=== PATIENT | male | born 1940 | race Caucasian/White ===

== ENCOUNTER 2016-03-03 14:55 | Day surgery (SDC) | payer MEDICARE, MEDICAID ==
[2016-03-03] MEDS ORDERED: NALOXONE HCL INJ/PF 0.4 MG/1 ML SDV ONE (15:43)
[2016-03-03] MEDS ORDERED: PROMETHAZINE HCL INJ 25 MG/1 ML VIAL ONE (15:43)
[2016-03-03] MEDS ORDERED: FLUMAZENIL INJ 0.5 MG/5 ML VIAL IV ONE (15:44)
[2016-03-03] MEDS ORDERED: MIDAZOLAM 2 MG/2 ML INJ ONE (15:44)
[2016-03-03] MEDS ORDERED: EPINEPHRINE INJ 1 MG/10 ML DISP.SYRIN ONE (15:44)
[2016-03-03] MEDS ORDERED: FENTANYL CITRATE INJ/PF 100 MCG/2 ML AMPUL ONE (15:44)
[2016-03-03] MEDS ORDERED: GLUCAGON,HUMAN RECOMB 1 MG INJ ONE (15:44)
--- NOTE | 2016-03-03 16:29 | Operative Report ---
Operative Report DATE OF SURGERY: 03/03/16 Operative Report: Pre-op diagnosis: History of large gastric ulcer with bleeding Post-op diagnosis: Antral and gastric body gastritis Surgery: Esophagogastroduodenoscopy with biopsy Medications: Versed 2 mg Fentanyl 50 mcg IV push Tissue removed: Antral biopsy for pathology Procedure: After informed consent obtained from patient, the throat was sprayed with Hurricane and conscious sedation was achieved. The upper endoscope was inserted into the esophagus under direct vision and advanced into the stomach. The duodenum was entered and examined to the second part. Endoscope was then slowly pulled out of the patient as the mucosa was examined into details. Patient tolerated procedure well. Findings Esophagus: Normal Z-line at: Antrum: Mild erythema with areas of atrophy Body: Mild erythema with areas of atrophy Fundus: Normal Duodenum first part: Normal Duodenum second part: Normal Plan: Await pathology. Continue omeprazole OPERATION: .
--- NOTE | 2016-03-03 17:03 | PDOC DISCHARGE SUMMARY ---
Discharge Summary (SDC) - Discharge Final Diagnosis: Gastritis Date of Surgery: 03/03/16 Condition: Stable Forms: Sedation D/C Instructions, Discharge POC-Surgical Service Treatment or Instructions: Continue omeprazole Referrals: MERRILL BASS MD [ACTIVE STAFF] - Discharge Diet: As Tolerated Discharge Activity: Activity As Tolerated, Balance Activity w/Rest, No Driving Home Care Assistance: None Needed Report the Following to Your Physician Immediately: Shortness of Breath, Increase in Pain, Fever over 101 Degrees, Unusual Bleeding
[2016-03-03 17:16] VITALS: BP 142/79
== END 2016-03-03 17:22 | disposition home or self-care (01) ==
LOC: END 14:55
PROVIDERS: ATTEND Internal Medicine Gastroenterology
PROC: 0DB68ZX Excision of Stomach, Via Natural or Artificial Opening Endoscopic, Diagnostic (ICD-10-PCS; principal; 2016-03-03 15:30)
DX: K29.70 Gastritis, unspecified, without bleeding (principal); D63.8 Anemia in other chronic diseases classified elsewhere; M06.9 Rheumatoid arthritis, unspecified; J44.9 Chronic obstructive pulmonary disease, unspecified; Z88.2 Allergy status to sulfonamides; Z87.11 Personal history of peptic ulcer disease
CPT/HCPCS: 43239; 82962; 88305 ×2; J2250; J3010; J0171; J1610; J2310; J2550; J3490

== ENCOUNTER 2018-03-22 19:55 | Emergency (ER) | payer MEDICARE, MEDICAID ==
--- NOTE | 2018-03-22 21:08 | ER Document Report ---
ED General - General Chief Complaint: Knee Pain Stated Complaint: KNEE PAIN Time Seen by Provider: 03/22/18 20:45 Primary Care Provider: YULIYA VASQUEZ MD [ACTIVE STAFF] - Follow up as needed Notes: Patient is a 77-year-old male that comes to the emergency part for chief complaint of having a place to go. He states he was at [facility] in rehab after he had had a intracranial hemorrhage that he was hospitalized at [facility] and discharged to the rehab center, he states he just started using a walker again, he had been in a wheelchair up until that point. Patient has been in a long- term care facility before because of very bad arthritis of his hands he has limited use of them, before the intracranial hemorrhage she was living with a friend in a house where he was dropped off today, however nobody showed up to the house and patient remained on the porch until the police were called. He reports to me a past medical history of insulin-dependent diabetes, arthritis, and intracranial hemorrhage, denies medical history otherwise. He states he is worried about going back to that house because he heard someone else lives there now, he is not sure that he has a place there, he is looking for a place to go. He denies SI or HI. He denies any current complaints except feeling hungry. TRAVEL OUTSIDE OF THE [place] IN LAST 30 DAYS: No - Related Data Allergies/Adverse Reactions: Sulfa (Sulfonamide Antibiotics) Allergy (Verified 01/21/15 19:24) Past Medical History - General Information source: Patient - Social History Smoking Status: Former Smoker Frequency of alcohol use: None Drug Abuse: None Lives with: Friend Family History: Reviewed & Not Pertinent - Past Medical History Cardiac Medical History: Denies: Hx Coronary Artery Disease, Hx Heart Attack, Hx Hypertension Pulmonary Medical History: Reports: Hx Bronchitis, Hx COPD, Hx Pneumonia Denies: Hx Asthma, Hx Tuberculosis Neurological Medical History: Denies: Hx Cerebrovascular Accident, Hx Seizures Endocrine Medical History: Reports: Hx Diabetes Mellitus Type 2 Musculoskeletal Medical History: Reports Hx Arthritis - rheumatoid, Reports Hx Musculoskeletal Deformity, Reports Hx Musculoskeletal Trauma Psychiatric Medical History: Reports: Hx Attention Deficit Hyperactivity Disorder, Hx Depression Past Surgical History: Reports: Hx Nose Surgery, Hx Orthopedic Surgery - left hip - Immunizations Immunizations up to date: Yes Hx Diphtheria, Pertussis, Tetanus Vaccination: Yes - unknown Hx Pneumococcal Vaccination: 02/22/07 Review of Systems - Review of Systems Constitutional: No symptoms reported EENT: No symptoms reported Cardiovascular: No symptoms reported Respiratory: No symptoms reported Gastrointestinal: No symptoms reported Genitourinary: No symptoms reported Male Genitourinary: No symptoms reported Musculoskeletal: See HPI Skin: No symptoms reported Hematologic/Lymphatic: No symptoms reported Neurological/Psychological: No symptoms reported Physical Exam - Vital signs Vitals: Temp Pulse Resp BP Pulse Ox 98.8 F 106 H 16 100/64 99 03/22/18 20:13 03/22/18 20:13 03/22/18 20:13 03/22/18 20:13 03/22/18 20:13 - Notes Notes: GENERAL: Small and frail. Alert and interactive. Talkative and laughing. HEAD: Normocephalic, atraumatic. EYES: Pupils equal, round, and reactive to light. Extraocular movements intact. ENT: Oral mucosa dry, tongue midline. Oropharynx unremarkable. Airway patent. Nares patent, no nasal septal hematoma, TM's intact. NECK: Full range of motion. Supple. Trachea midline. LUNGS: Clear to auscultation bilaterally, although mildly depressed throughout, no wheezes, rales, or rhonchi. No respiratory distress. HEART: Regular rate and rhythm. No murmur ABDOMEN: Soft, non-tender. Non-distended. Bowel sounds present in all 4 quadrants. 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 Pain with range of motion of the knees, worse on the right, but this is intact. Lower extremity exam is unremarkable otherwise. BACK: no cervical, thoracic, lumbar midline tenderness. No saddle anesthesia, normal distal neurovascular exam. NEUROLOGICAL: Alert and oriented x3. Normal speech. [cranial nerves II through XII grossly intact]. PSYCH: Normal affect, normal mood. SKIN: Warm, dry, normal turgor. No rashes or lesions noted. Course - Re-evaluation Re-evalutation: Patient is conversational, alert, he has very dry mucous membranes but otherwise he is well-appearing. He is completely oriented and able to provide full det ails. Patient appears to be completely out of resources, because of his age, past medical history, and difficult day he will be medically cleared first, pillowcase sewer consult will be placed, patient will be a social hold once he is medically cleared. Review of previous records shows this patient has a history of rheumatoid arthritis, type 2 diabetes, CVA, prosthetic left hip, and tobacco abuse. EKG shows sinus rate at a rate of 82, no T wave inversions or ST segment changes negative leads, left axis deviation. No significant change from prior. He was borderline tachycardic on arrival but not on my evaluation. 03/23/18 00:01 General workup including CBC, chemistry, urinalysis, EKG, drug screen, alcohol is unremarkable. Vital signs unremarkable. Patient sleeping on reevaluation. We have already discussed different options, patient is medically cleared, he is a social hold at this time, when we find a location for him he can be discharged. - Vital Signs Vital signs: Temp Pulse Resp BP Pulse Ox 98 F 80 20 145/78 H 96 03/22/18 22:22 03/22/18 22:22 03/22/18 22:22 03/22/18 22:22 03/22/18 22:22 - Laboratory Result Diagrams: 03/22/18 21:18 03/22/18 21:18 Laboratory results interpreted by me: 03/22/18 03/22/18 21:18 21:18 RBC 4.17 L RDW 16.5 H Plt Count 143 L Seg Neutrophils % 81.9 H Lymphocytes % 10.0 L BUN 32 H Est GFR (Non-Af Amer) 57 L Glucose 113 H Salicylates < 1.0 L Acetaminophen < 10 L Discharge - Discharge Clinical Impression: Homelessness, Chronic joint pain Condition: Stable Disposition: OTHER Referrals: YULIYA VASQUEZ MD [ACTIVE STAFF] - Follow up as needed
[2018-03-22 21:30] LABS: ABSOLUTE EOSINOPHILS # (AUTO) 0.1 10^3/uL (0.0-0.6); ABSOLUTE LYMPHOCYTES (AUTO) 0.8 10^3/uL (0.5-4.7); ABSOLUTE MONOCYTES (AUTO) 0.6 10^3/uL (0.1-1.4); ABSOLUTE NEUT (AUTO) 6.4 10^3/uL (1.7-8.2); BASOPHILS % (AUTO) 0.2 % (0-2); EOSINOPHILS % (AUTO) 0.7 % (0-6); HEMATOCRIT 39.9 % (37.9-51.0); HEMOGLOBIN 13.5 g/dL (13.5-17.0); MEAN CORPUSCULAR HEMOGLOBIN 32.5 pg (27.0-33.4); MEAN CORPUSCULAR VOLUME 96 fl (80-97); MONOCYTES % (AUTO) 7.2 % (3-13); PLATELET COUNT 143 10^3/uL (150-450); RED BLOOD COUNT 4.17 10^6/uL (4.35-5.55); RED CELL DISTRIBUTION WIDTH 16.5 % (11.5-14.0); SEGMENTED NEUTROPHILS % (AUTO) 81.9 % (42-78); TOTAL CELLS COUNTED % (AUTO) 100 %; WHITE BLOOD COUNT 7.8 10^3/uL (4.0-10.5)
[2018-03-22 21:50] LABS: ALANINE AMINOTRANSFERASE 31 U/L (21-72); ALBUMIN 4.4 g/dL (3.5-5.0); ALKALINE PHOSPHATASE 71 U/L (38-126); ANION GAP 11 (5-19); ASPARTATE AMINO TRANSFERASE 20 U/L (17-59); BILIRUBIN,DIRECT 0.2 mg/dL (0.0-0.4); BILIRUBIN,TOTAL 0.3 mg/dL (0.2-1.3); BLOOD UREA NITROGEN 32 mg/dL (7-20); CALCIUM 9.4 mg/dL (8.4-10.2); CARBON DIOXIDE 22 mmol/L (22-30); CHLORIDE 106 mmol/L (98-107); GLUCOSE 113 mg/dL (75-110); POTASSIUM 4.9 mmol/L (3.6-5.0); TOTAL PROTEIN 7.2 g/dL (6.3-8.2)
[2018-03-22 21:58] LABS: ACETAMINOPHEN < 10 ug/mL (10-30); ALCOHOL < 10 mg/dL (NONE DETECTED); SALICYLATE < 1.0 mg/dL (2.0-20.0)
[2018-03-22 23:10] LABS: APPEARANCE,URINE CLEAR; BILIRUBIN,URINE NEGATIVE (NEGATIVE); COLOR,URINE STRAW; GLUCOSE, URINE NEGATIVE (NEGATIVE); KETONES,URINE NEGATIVE (NEGATIVE); LEUKOCYTE ESTERASE,URINE NEGATIVE (NEGATIVE); NITRITE,URINE NEGATIVE (NEGATIVE); PROTEIN,URINE NEGATIVE (NEGATIVE); UROBILINOGEN,URINE NEGATIVE mg/dL (<2.0)
[2018-03-22 23:23] LABS: URINE AMPHETAMINES SCREEN NEGATIVE; URINE BARBITURATES SCREEN NEGATIVE; URINE BENZODIAZEPINES SCREEN NEGATIVE; URINE COCAINE SCREEN NEGATIVE; URINE MARIJUANA (THC) SCREEN NEGATIVE; URINE METHADONE SCREEN NEGATIVE; URINE PHENCYCLIDINE SCREEN NEGATIVE
--- NOTE | 2018-03-23 08:04 | EKG REPORT ---
SEVERITY:- OTHERWISE NORMAL ECG - SINUS RHYTHM LEFT AXIS DEVIATION : Confirmed by: Bob Lee MD 23-Mar-2018 08:03:52
--- NOTE | 2018-03-23 09:56 | ER Document Report ---
Doctor's Note Notes: 03/23/18 09:55 Patient resting comfortably, no complaints at present time, assisted him with eating breakfast, unsure what the discharge plan is at this point, as patient has nowhere to live, states he plans on getting an apartment on his own, however given his current medical condition and disability I am unsure whether this is a safe plan at this time without appropriate resources in place, will discuss with social work for more insight on discharge planning, otherwise patient is medically cleared to be discharged from the emergency department once a safe and appropriate plan is made
[2018-03-23] MEDS ORDERED: INSULIN GLARGINE,HUM.REC.ANLOG 1,000 UNIT/10 ML UNIT SUBCUT SCH (11:30)
[2018-03-23] MEDS ORDERED: TUBERCULIN,PURIF.PROT.DERIV. 5 TU/0.1 ML TEST 1 ML VIAL ID ONE (11:41)
[2018-03-23] MEDS: METFORMIN HCL 500 MG TABLET PO SCH ×2 (12:41→18:59)
[2018-03-23] MEDS: FAMOTIDINE 20 MG TABLET PO SCH (12:41)
[2018-03-23] MEDS: FOLIC ACID 1 MG TABLET PO SCH (12:41)
[2018-03-24] MEDS: INSULIN GLARGINE,HUM.REC.ANLOG 1,000 UNIT/10 ML UNIT SUBCUT SCH (11:22)
[2018-03-24] MEDS: FAMOTIDINE 20 MG TABLET PO SCH (11:22)
[2018-03-24] MEDS: FOLIC ACID 1 MG TABLET PO SCH (11:22)
[2018-03-24] MEDS: METFORMIN HCL 500 MG TABLET PO SCH ×2 (11:22→20:09)
--- NOTE | 2018-03-24 14:52 | ER Document Report ---
Doctor's Note Notes: 03/24/18 14:51 Patient's vital signs have been stable. I reviewed the chart. This is a 77-year-old gentleman with a history of chronic pain and diabetes who previously left [facility] protheses he did not like it) and is now homeless. He is followed by social work and the plan is for probable placement tomorrow. We are waiting for results of his PPD test which was applied yesterday. Applications for new [facility] have been created and submitted.
[2018-03-25] MEDS: METFORMIN HCL 500 MG TABLET PO SCH (10:24)
[2018-03-25] MEDS: FAMOTIDINE 20 MG TABLET PO SCH (10:24)
[2018-03-25] MEDS: FOLIC ACID 1 MG TABLET PO SCH (10:25)
[2018-03-25] MEDS: INSULIN GLARGINE,HUM.REC.ANLOG 1,000 UNIT/10 ML UNIT SUBCUT SCH (10:26)
--- NOTE | 2018-03-25 12:08 | ER Document Report ---
Doctor's Note Notes: 03/25/18 12:08 Patient has been accepted back to the care facility. Vital signs are stable. Pain. Patient will be transferred to the nursing care facility which he has been accepted and is in agreement to go.
[2018-03-25 13:56] VITALS: BP 131/65
== END 2018-03-25 16:32 | disposition other institution (70) ==
LOC: ER 19:55
DX: Z59.0 Homelessness (principal); M25.50 Pain in unspecified joint; G89.29 Other chronic pain; E11.9 Type 2 diabetes mellitus without complications
CPT/HCPCS: 93005; 36415; 82962; 80307 ×4; 85025; 80053; 81001; 93010; 97116; A9270 ×8; J3490; 99284; J1815

== ENCOUNTER → 2018-06-03 | Outpatient (CLI) | payer MEDICARE, MEDICAID ==
[2018-06-03 10:11] LABS: HEMATOCRIT 34.8 % (37.9-51.0); HEMOGLOBIN 11.9 g/dL (13.5-17.0); MEAN CORPUSCULAR HGB CONC 34.2 g/dL (32.0-36.0); MEAN CORPUSCULAR VOLUME 94 fl (80-97); PLATELET COUNT 249 10^3/uL (150-450); RED BLOOD COUNT 3.72 10^6/uL (4.35-5.55); WHITE BLOOD COUNT 6.3 10^3/uL (4.0-10.5)
[2018-06-03 10:32] LABS: ANION GAP 14 (5-19); BLOOD UREA NITROGEN 20 mg/dL (7-20); CALCIUM 10.1 mg/dL (8.4-10.2); CARBON DIOXIDE 19 mmol/L (22-30); CHLORIDE 105 mmol/L (98-107); GLUCOSE 100 mg/dL (75-110); POTASSIUM 4.5 mmol/L (3.6-5.0); SODIUM 138.3 mmol/L (137-145)
[2018-06-03 11:36] LABS: FOLATE > 20.00 ng/mL (>2.76)
== END ==
LOC: OD 09:01
PROVIDERS: ATTEND Family Medicine
DX: R54 Age-related physical debility (principal); E11.9 Type 2 diabetes mellitus without complications
CPT/HCPCS: 36415; 80048; 82607; 82746; 84443; 85027; 86592

== ENCOUNTER 2018-06-11 09:58 | Emergency (ER) | payer MEDICARE, MEDICAID ==
--- NOTE | 2018-06-11 10:20 | ER Document Report ---
ED General - General Chief Complaint: Hip Injury Stated Complaint: FALL/HIP PAIN Time Seen by Provider: 06/11/18 10:14 Primary Care Provider: MARYLIN CALDERA MD [Primary Care Provider] - Follow up as needed TRAVEL OUTSIDE OF THE [place] IN LAST 30 DAYS: No - HPI Notes: Patient is a 77-year-old male with a history of insulin-dependent diabetes, arthritis, ambulatory dysfunction, and intracranial hemorrhage who presents the emergency department complaining of left hip pain and left hand pain after falling out of his wheelchair prior to arrival. Patient states that he was out side smoking in his wheelchair when he was shifting around to go back inside and lost his balance and fell forward. Patient states that he stopped his fall with his left hand and his left hip. He did not hit his head or lose conscience. Patient states that he otherwise feels well and has no other aches or pains. He takes aspirin daily, but no other blood thinner. Denies any headache, fever, h ead injury, neck pain, changes in vision/speech/mentation/hearing, URI, sore throat, chest pain, palpitations, syncope, cough, shortness of breath, wheeze, dyspnea, abdominal pain, nausea/vomiting/diarrhea, urinary retention, dysuria, hematuria, loss of control of bowel or bladder, numbness/tingling, saddle anesthesia, muscle paralysis, or rash. - Related Data Allergies/Adverse Reactions: Sulfa (Sulfonamide Antibiotics) Allergy (Verified 01/21/15 19:24) Past Medical History - Social History Smoking Status: Current Every Day Smoker Family History: Reviewed & Not Pertinent Patient has suicidal ideation: No Patient has homicidal ideation: No - Past Medical History Cardiac Medical History: Denies: Hx Coronary Artery Disease, Hx Heart Attack, Hx Hypertension Pulmonary Medical History: Reports: Hx Bronchitis, Hx COPD, Hx Pneumonia Denies: Hx Asthma, Hx Tuberculosis Neurological Medical History: Denies: Hx Cerebrovascular Accident, Hx Seizures Endocrine Medical History: Reports: Hx Diabetes Mellitus Type 2 Renal/ Medical History: Denies: Hx Peritoneal Dialysis Musculoskeletal Medical History: Reports Hx Arthritis - rheumatoid, Reports Hx Musculoskeletal Deformity, Reports Hx Musculoskeletal Trauma Psychiatric Medical History: Reports: Hx Attention Deficit Hyperactivity Disorder, Hx Depression Past Surgical History: Reports: Hx Nose Surgery, Hx Orthopedic Surgery - left hip - Immunizations Immunizations up to date: Yes Hx Diphtheria, Pertussis, Tetanus Vaccination: Yes - unknown Hx Pneumococcal Vaccination: 02/22/07 Review of Systems - Review of Systems -: Yes All other systems reviewed and negative Physical Exam - Vital signs Vitals: Temp Pulse Resp BP 97.7 F 74 20 144/75 H 06/11/18 10:06 06/11/18 10:06 06/11/18 10:06 06/11/18 10:06 - Notes Notes: PHYSICAL EXAMINATION: GENERAL: Appears frail and in no acute distress. A&Ox4. Answers questions appropriately. HEAD: Atraumatic, normocephalic. Non-tender. No may sign. No hematoma. EYES: Pupils equal round and reactive to light, extraocular movements intact, sclera anicteric, conjunctiva are normal. No raccoon eyes/entrapment ENT: EAC clear b/l. TM's intact b/l without erythema, fluid, or perforation. Nares patent and without discharge. oropharynx clear without exudates. No tonsilar hypertrophy or erythema. Moist mucous membranes. No sinus tenderness. No hemotympanum/CSF discharge. NECK: Normal range of motion, supple without lymphadenopathy. No rigidity. No midline tenderness. Chest: No ecchymosis. No flail chest. equal rise/fall. Non-tender LUNGS: Breath sounds clear to auscultation bilaterally and equal. No wheezes rales or rhonchi. HEART: Regular rate and rhythm without murmurs, rubs, gallops. ABDOMEN: Soft, nontender, nondistended abdomen. No guarding, no rebound. Normal bowel sounds present. No CVA tenderness bilaterally. No ecchymosis Musculoskeletal: Ext's b/l: FROM to passive/active. Strength 5+/5. No deficits noted. + mild tenderness left lateral hip. + mild tenderness left dorsal hand. No other bony tenderness of extremities. He does appear to an arthritis that resembles RA, primarily noted with his hands/fingers. Back: FROM to passive/active. Strength 5+/5. No vertebral point tenderness, stepoffs, or deformities. No other bony tenderness or ecchymosis. Extremities: No cyanosis, clubbing, or edema b/l. Peripheral pulses 2+. Capillary refill less than 2 seconds. NEUROLOGICAL: NIH 0. GCS 15. Cranial nerves grossly intact. Normal speech. Normal sensory, motor exams. Reflexes 2+ b/l. MEAGAN's negative. Pronator drift negative. Heel/monahan, finger/nose wnl. PSYCH: Normal mood, normal affect. SKIN: Warm, Dry, normal turgor, no rashes or lesions noted. Course - Re-evaluation Re-evalutation: 06/11/18 12:16 Patient is an afebrile, well-hydrated, 77-year-old male who presents to the ED with left ankle pain and left hip pain most likely contusion. Vitals are acceptable without any significant tachycardia, tachypnea, or hypoxia. PE is otherwise unremarkable for any neurovascular compromise, obvious tendon/ligament rupture, obvious fracture/dislocation, septic joint. X-rays unremarkable for any acute pathology. Patient is nontoxic-appearing. Patient is able to ambul ate and weight-bear, but does not ambulate far which is normal for him. No other labs or imaging warranted at this time based on H&P. Conservative measures otherwise for symptoms. Recheck with your PCM in 3-5 days. Consider consult orthopedics. Return to the ED with any worsening/concerning symptoms otherwise as reviewed in discharge. Patient is in agreement. - Vital Signs Vital signs: Temp Pulse Resp BP Pulse Ox 97.7 F 74 20 144/75 H 06/11/18 10:06 06/11/18 10:06 06/11/18 10:06 06/11/18 10:06 Discharge - Discharge Clinical Impression: Left hip pain Left ankle pain Qualifiers: Chronicity: acute Qualified Code(s): M25.572 - Pain in left ankle and joints of left foot Condition: Stable Disposition: HOME, SELF-CARE Additional Instructions: Rest, Ice, Compression, Elevation Tylenol/ibuprofen as needed Light stretches daily Strength exercises as able Moist heat and massage may help F/u with your PCP in 3-5 days for a recheck Consider consult(s) with Orthopedics/physical therapy for ongoing/worsening symptoms Return to the ED with any worsening symptoms and/or development of fever, headache, chest pain, palpitations, syncope, shortness of breath, trouble breathing, abdominal pain, n/v/d, muscle weakness/paralysis, numbness/tingling, swelling, redness, or other worsening symptoms that are concerning to you. Forms: Elevated Blood Pressure Referrals: MARYLIN CALDERA MD [Primary Care Provider] - Follow up as needed [facility] [Provider Group] - Follow up as needed
--- NOTE | 2018-06-11 11:39 | RADIOLOGY REPORT (SQ) ---
EXAM DESCRIPTION: HIP LEFT AP/LATERAL COMPLETED DATE/TIME: 06/11/2018 10:49 am REASON FOR STUDY: pain s/p fall COMPARISON: 12/14/2012, 01/18/2012 NUMBER OF VIEWS: Two views. TECHNIQUE: AP pelvis and additional frog-leg view of the left hip. LIMITATIONS: None. FINDINGS: MINERALIZATION: Osteopenic LEFT HIP: Old left hip replacement with acetabular component anchored with a screw. No lucency aroun d the hardware worrisome for loosening. 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 No acute fracture or malalignment. No significant right hip joint space narrowing PUBIS AND ISCHIUM: No fracture. PELVIS: No fracture. SACRUM: No fracture or dislocation. No worrisome bone lesions. LOWER LUMBAR SPINE: Advanced degenerative disc loss of height at L3-4 SOFT TISSUES: No findings. OTHER: No other significant finding. IMPRESSION: NEGATIVE STUDY OF THE LEFT HIP AND PELVIS. NO RADIOGRAPHIC EVIDENCE OF ACUTE INJURY. COMMENT: Bones are osteopenic. If patient is unable weight bear consider follow-up CT TECHNICAL DOCUMENTATION: JOB ID: [id number] [employer]- All Rights Reserved Reading location - IP/workstation name: [email or web address]
--- NOTE | 2018-06-11 11:44 | RADIOLOGY REPORT (SQ) ---
EXAM DESCRIPTION: HAND LEFT 3 VIEWS COMPLETED DATE/TIME: 06/11/2018 10:56 am REASON FOR STUDY: pain s/p fall COMPARISON: None. EXAM PARAMETERS: NUMBER OF VIEWS: Three views. TECHNIQUE: AP, lateral and oblique radiographic images acquired of the left hand. LIMITATIONS: None. FINDINGS: Bones are osteoporotic. There are classic changes of the hand rheumatoid arthritis with joint narrowing and erosions along th e radiocarpal joint and ulnar subluxation of the phalanges at the MCP joints. No acute fracture. No radiopaque foreign body in the soft tissues. IMPRESSION: No acute fracture. No radiopaque foreign body. Chronic changes of rheumatoid arthritis TECHNICAL DOCUMENTATION: JOB ID: [id number] [employer]- All Rights Reserved Reading location - IP/workstation name: [email or web address]
[2018-06-11 13:08] VITALS: BP 129/83
== END 2018-06-11 13:10 | disposition home or self-care (01) ==
LOC: ER 09:58
DX: M25.552 Pain in left hip (principal); M25.572 Pain in left ankle and joints of left foot; M79.642 Pain in left hand; V00.811A Fall from moving wheelchair (powered), initial encounter; Y93.89 Activity, other specified; F17.200 Nicotine dependence, unspecified, uncomplicated; E11.9 Type 2 diabetes mellitus without complications; J44.9 Chronic obstructive pulmonary disease, unspecified; Z79.82 Long term (current) use of aspirin; Z88.2 Allergy status to sulfonamides
CPT/HCPCS: 82962; 99284

== ENCOUNTER 2018-06-22 15:13 | Emergency (ER) | payer MEDICARE, MEDICAID ==
--- NOTE | 2018-06-22 17:02 | ER Document Report ---
ED Medical Screen (RME) - General Chief Complaint: Abdominal Pain Stated Complaint: ABDOMINAL PAIN Time Seen by Provider: 06/22/18 16:55 Primary Care Provider: MARYLIN CALDERA MD [Primary Care Provider] - Follow up as needed Mode of Arrival: Ambulatory Information source: Patient TRAVEL OUTSIDE OF THE [place] IN LAST 30 DAYS: No - HPI Patient complains to provider of: RIGHT GROIN PAIN Notes: 06/22/18 17:01 Patient here with complaints of right groin pain. Pain started this morning. No fever. No nausea, vomiting, diarrhea. Has had prior inguinal hernia repair approximately 3 years ago. No dysuria. Chest pain or shortness of breath. Exam Nontoxic, no distress. Lungs clear and equal throughout. Heart sounds normal. Tenderness to palpation in the right groin with no obvious mass. No rebound tenderness or guarding. Plan CBC, CMP, urine, lipase, CT abdomen pelvis with IV contrast. An initial examination was made on the patient as part of the triage process, and it was determined a more comprehensive evaluation was necessary. Initial labs were ordered and patient was transferred to another provider in the ED who assumed care and finished evaluation and plan. - Related Data Allergies/Adverse Reactions: Sulfa (Sulfonamide Antibiotics) Allergy (Verified 01/21/15 19:24) Past Medical History - Social History Frequency of alcohol use: None Drug Abuse: None - Past Medical History Cardiac Medical History: Denies: Hx Coronary Artery Disease, Hx Heart Attack, Hx Hypertension Pulmonary Medical History: Reports: Hx Bronchitis, Hx COPD, Hx Pneumonia Denies: Hx Asthma, Hx Tuberculosis Neurological Medical History: Denies: Hx Cerebrovascular Accident, Hx Seizures Endocrine Medical History: Reports: Hx Diabetes Mellitus Type 2 Renal/ Medical History: Denies: Hx Peritoneal Dialysis Musculoskeltal Medical History: Reports Hx Arthritis - rheumatoid, Reports Hx Musculoskeletal Deformity, Reports Hx Musculoskeletal Trauma Psychiatric Medical History: Reports: Hx Attention Deficit Hyperactivity Disorder, Hx Depression Past Surgical History: Reports: Hx Nose Surgery, Hx Orthopedic Surgery - left hip - Immunizations Immunizations up to date: Yes Hx Diphtheria, Pertussis, Tetanus Vaccination: Yes - unknown Physical Exam - Vital signs Vitals: Temp Pulse Resp BP Pulse Ox 98.3 F 76 20 130/63 H 96 06/22/18 15:41 06/22/18 15:41 06/22/18 15:41 06/22/18 15:41 06/22/18 15:41 Course - Vital Signs Vital signs: Temp Pulse Resp BP Pulse Ox 98.3 F 76 20 130/63 H 96 06/22/18 15:41 06/22/18 15:41 06/22/18 15:41 06/22/18 15:41 06/22/18 15:41 Doctor's Discharge - Discharge Referrals: MARYLIN CALDERA MD [Primary Care Provider] - Follow up as needed
[2018-06-22 19:25] LABS: ABSOLUTE MONOCYTES (AUTO) 0.5 10^3/uL (0.1-1.4); ABSOLUTE NEUT (AUTO) 8.1 10^3/uL (1.7-8.2); BASOPHILS % (AUTO) 0.4 % (0-2); EOSINOPHILS % (AUTO) 0.2 % (0-6); HEMATOCRIT 38.9 % (37.9-51.0); LYMPHOCYTES % (AUTO) 10.5 % (13-45); MEAN CORPUSCULAR HGB CONC 33.4 g/dL (32.0-36.0); MEAN CORPUSCULAR VOLUME 96 fl (80-97); PLATELET COUNT 177 10^3/uL (150-450); RED BLOOD COUNT 4.06 10^6/uL (4.35-5.55); RED CELL DISTRIBUTION WIDTH 17.6 % (11.5-14.0); SEGMENTED NEUTROPHILS % (AUTO) 83.9 % (42-78); TOTAL CELLS COUNTED % (AUTO) 100 %; WHITE BLOOD COUNT 9.7 10^3/uL (4.0-10.5)
[2018-06-22 19:36] LABS: APPEARANCE,URINE CLEAR; BILIRUBIN,URINE NEGATIVE (NEGATIVE); COLOR,URINE YELLOW; GLUCOSE, URINE NEGATIVE (NEGATIVE); KETONES,URINE NEGATIVE (NEGATIVE); LEUKOCYTE ESTERASE,URINE NEGATIVE (NEGATIVE); NITRITE,URINE NEGATIVE (NEGATIVE); PROTEIN,URINE 30 mg/dL (NEGATIVE); URINE SPECIFIC GRAVITY 1.021; UROBILINOGEN,URINE NEGATIVE mg/dL (<2.0)
[2018-06-22 19:55] LABS: ALANINE AMINOTRANSFERASE 11 U/L (21-72); ALBUMIN 4.2 g/dL (3.5-5.0); ALKALINE PHOSPHATASE 68 U/L (38-126); ANION GAP 11 (5-19); ASPARTATE AMINO TRANSFERASE 15 U/L (17-59); BILIRUBIN,DIRECT 0.2 mg/dL (0.0-0.4); BILIRUBIN,TOTAL 0.3 mg/dL (0.2-1.3); BLOOD UREA NITROGEN 30 mg/dL (7-20); CALCIUM 9.5 mg/dL (8.4-10.2); CARBON DIOXIDE 26 mmol/L (22-30); CHLORIDE 106 mmol/L (98-107); GLUCOSE 102 mg/dL (75-110); POTASSIUM 5.2 mmol/L (3.6-5.0); SODIUM 142.9 mmol/L (137-145); TOTAL PROTEIN 7.7 g/dL (6.3-8.2)
--- NOTE | 2018-06-22 20:10 | ER Document Report ---
ED General - General Chief Complaint: Abdominal Pain Stated Complaint: ABDOMINAL PAIN Time Seen by Provider: 06/22/18 16:55 Primary Care Provider: MARYLIN CALDERA MD [NO LOCAL MD] - Follow up in 3-5 days Mode of Arrival: Ambulatory Notes: Patient is a 77-year-old male who presents the emergency department with right lower quadrant pain. He states that his pain started this afternoon when he went to go lay down. He has history of a hernia in his right lower quadrant area. States the pain comes and goes, but does not have pain at the time of my assessment. Denies any nausea, vomiting, or diarrhea. He states that his symptoms started after lunch began. Patient is diabetic and he is currently on Lantus and metformin. Denies any chest pain, headache, loss of consciousness, or other symptoms. TRAVEL OUTSIDE OF THE [place] IN LAST 30 DAYS: No - Related Data Allergies/Adverse Reactions: Sulfa (Sulfonamide Antibiotics) Allergy (Verified 01/21/15 19:24) Past Medical History - General Information source: Patient - Social History Smoking Status: Current Every Day Smoker Frequency of alcohol use: None Drug Abuse: None Family History: Reviewed & Not Pertinent Patient has suicidal ideation: No Patient has homicidal ideation: No - Past Medical History Cardiac Medical History: Denies: Hx Coronary Artery Disease, Hx Heart Attack, Hx Hypertension Pulmonary Medical History: Reports: Hx Bronchitis, Hx COPD, Hx Pneumonia Denies: Hx Asthma, Hx Tuberculosis Neurological Medical History: Denies: Hx Cerebrovascular Accident, Hx Seizures Endocrine Medical History: Reports: Hx Diabetes Mellitus Type 2 Renal/ Medical History: Denies: Hx Peritoneal Dialysis GI Medical History: Reports: Hx Gastroesophageal Reflux Disease Musculoskeletal Medical History: Reports Hx Arthritis - rheumatoid, Reports Hx Musculoskeletal Deformity, Reports Hx Musculoskeletal Trauma Psychiatric Medical History: Reports: Hx Attention Deficit Hyperactivity Disorder, Hx Depression Past Surgical History: Reports: Hx Abdominal Surgery - hernia repair, Hx Nose Surgery, Hx Orthopedic Surgery - left hip - Immunizations Immunizations up to date: Yes Hx Diphtheria, Pertussis, Tetanus Vaccination: Yes - unknown Hx Pneumococcal Vaccination: 02/22/07 Review of Systems - Review of Systems Notes: REVIEW OF SYSTEMS: CONSTITUTIONAL : Denies recent illness. Denies recent unintentional weight loss. Denies fever, chills, or sweats. EENT: Denies eye, ear, throat, or mouth pain, discharge, or symptoms. Denies nasal or sinus congestion. CARDIOVASCULAR: Denies chest pain. RESPIRATORY: Denies shortness of breath, cough, congestion, difficulty breathing, or wheezing. GASTROINTESTINAL: See HPI GENITOURINARY: Denies difficulty urinating, burning, blood in urine, urgency or frequency. MUSCULOSKELETAL: Denies neck and back pain. Denies joint pain or swelling. SKIN: Denies rash, itchiness, or lesions HEMATOLOGIC : Denies easy bruising or bleeding. LYMPHATIC: Denies swollen, painful, enlarged glands. NEUROLOGICAL: Denies no numbness or tingling denies weakness. Denies headache. Denies altered mental status. Denies alteration in speech. PSYCHIATRIC: Denies stress, anxiety, alteration in sleep patterns, or depression. All other systems reviewed and negative. Physical Exam - Vital signs Vitals: Temp Pulse Resp BP Pulse Ox 98.3 F 76 20 130/63 H 96 06/22/18 15:41 06/22/18 15:41 06/22/18 15:41 06/22/18 15:41 06/22/18 15:41 - Notes Notes: PHYSICAL EXAMINATION: GENERAL: Appears well, healthy, well-nourished, no acute distress. HEAD: Normocephalic, atraumatic. EYES: PERRL, conjunctiva normal, all extraocular movements intact, sclera nonicteric ENT: Moist mucous membranes. NECK: Supple, no noticeable swelling, redness, rash. Normal range of motion. LUNGS: Equal breath sounds bilaterally and clear to auscultation. No wheezes rales or rhonchi. CARDIOVASCULAR: S1-S2, regular rate, regular rhythm. Radial pulses 2+, normal. ABDOMEN: Normoactive bowel sounds. Soft, tender right lower quadrant, no masses palpated. EXTREMITIES: Normal strength and range of motion, no pitting or edema. No cyanosis. Obvious enlarged joints, consistent with patient's rheumatoid arthritis NEUROLOGICAL: Moves all extremities upon command. Strength 5/5 in all extremities. PSYCH: Normal mood, normal affect. SKIN: Warm, dry. No rash, lesions, ulcerations noted. Normal skin turgor. Course - Re-evaluation Re-evalutation: Differential diagnosis includes strangulated hernia, mesenteric ischemia, appendicitis, bowel obstruction, and bowel perforation. 06/22/18 21:[address] does not show any acute findings at this time. I suspect may be his hernia had popped out, but has not popped back in. He denies any symptoms at this time. He states he feels better. Patient does have a 2.8 cm aortic aneurysm, which he will follow-up outpatient. Patient's chemistry shows a potassium of 5.2, but I do not suspect this is the cause of his pain, as his pain is now gone. His hematology is unremarkable. I do not suspect the patient has any life-threatening etiology at this time. He will follow-up with his primary care doctor. He is in agreement with this plan. Verbal discharge instructions were given to the patient. They verbalized understanding. They are stable for discharge. - Vital Signs Vital signs: Temp Pulse Resp BP Pulse Ox 98.1 F 76 18 152/77 H 98 06/23/18 05:39 06/22/18 15:41 06/23/18 05:39 06/23/18 05:39 06/23/18 05:39 - Laboratory Result Diagrams: 06/22/18 18:57 06/22/18 18:57 Laboratory results interpreted by me: 06/22/18 06/22/18 06/22/18 18:57 18:57 18:57 RBC 4.06 L Hgb 13.0 L RDW 17.6 H Seg Neutrophils % 83.9 H Lymphocytes % 10.5 L Potassium 5.2 H BUN 30 H AST 15 L ALT 11 L Urine Protein 30 H Discharge - Discharge Clinical Impression: Abdominal pain Condition: Stable Disposition: HOME, SELF-CARE Additional Instructions: You are seen today in the emergency department for abdominal pain. It is uncle ar as to what the cause of your pain is. Your CAT scan was normal. It did show some changes that were chronic. Please follow-up with your primary care provider in regards to this visit. If you have worsening symptoms, abdominal pain, or have any symptoms that are worrisome to you, please return to the emergency department. Referrals: MARYLIN CALDERA MD [NO LOCAL MD] - Follow up in 3-5 days
--- NOTE | 2018-06-22 21:19 | RADIOLOGY REPORT (SQ) ---
EXAM DESCRIPTION: [facility]: CT ABDOMEN PELVIS WITH IV CONTRAST CLINICAL HISTORY: 77 years Male; RIGHT INGUINAL PAIN PREVIOUS HERNIA TECHNIQUE: CT of the abdomen and pelvis using intravenous 59 mL Omnip[address] scans at this facility use dose modulation, iterative reconstruction, and/or weight based dosing when appropriate to reduce radiation dose to as low as reasonably achievable. COMPARISON: CT 11/04/2014 FINDINGS: Abdomen: Liver:No focal lesions. No intrahepatic ductal distention. Gallbladder: Surgically absent Pancreas:Within normal limits Spleen:Within normal limits Right kidney: Exophytic 2 cm cyst. No hydronephrosis. Left kidney:No hydronephrosis. No focal lesion. Adrenal glands:Within normal limits Vascular structures: Extensive aortic calcifications. Abdominal aorta 2.8 cm diameter. No dissection. No major branch occlusion. Pelvis: Small bowel:No significant distention. Appendix:Within normal limits Colon: Several scattered diverticula. No acute pericolonic edema or colonic distention. No free intraperitoneal fluid or air. Multilevel chronic degenerative changes are noted in the lumbar spine. There are old compression fractures of T12 and L1. The T12 fracture is new since 2015. No acute bone findings. Left hip arthroplasty is noted, somewhat obscuring visualization due to artifact in the area. 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 No pelvic adenopathy. IMPRESSION: 1. No acute findings. 2. No evidence for recurrent/residual hernia. 3. 2.8 cm abdominal aortic aneurysm. Recommend follow-up every 5 years. Reference: J Vasc Surg 2009 Oct;50(4 Suppl):S2-49. 4. Previous cholecystectomy and other chronic findings as described.
[2018-06-23 05:43] VITALS: BP 152/77
== END 2018-06-23 05:59 | disposition home or self-care (01) ==
LOC: ER 15:13
DX: R10.9 Unspecified abdominal pain (principal); R10.31 Right lower quadrant pain; F17.200 Nicotine dependence, unspecified, uncomplicated; E11.9 Type 2 diabetes mellitus without complications; Z79.4 Long term (current) use of insulin; J44.9 Chronic obstructive pulmonary disease, unspecified
CPT/HCPCS: 36415; 74177; 80053; 81001; 83690; 85025; 99284

== ENCOUNTER 2018-08-01 15:35 | Emergency (ER) | payer MEDICARE, MEDICAID ==
[2018-08-01 15:50] VITALS: BP 122/66
[2018-08-01] MEDS ORDERED: IBUPROFEN 600 MG TABLET PO ONE (17:56)
[2018-08-01] MEDS ORDERED: CLINDAMYCIN HCL 150 MG CAPSULE PO ONE (17:56)
--- NOTE | 2018-08-01 17:57 | ER Document Report ---
HPI - HPI Time Seen by Provider: 08/01/18 17:51 Pain Level: 4 Notes: Patient is a 77-year-old male with a history of rheumatoid arthritis, COPD, diabetes who presents complaining of possible infection to the skin on his back that is been present for the last 4 to 5 days and has been draining. Patient states that he also has ongoing chronic knee pain 'since 2003.' He has not noticed any swelling, redness or changes in his pain. He is eating and drinking without difficulty. He is urinating normally. Denies any headache, fever, URI, sore throat, chest pain, palpitations, syncope, cough, shortness of breath, wheeze, dyspnea, abdominal pain, nausea/vomiting/diarrhea, urinary retention, dysuria, hematuria, numbness/tingling, muscle paralysis/weakness. - ROS Systems Reviewed and Negative: Yes All other systems reviewed and negative - REPRODUCTIVE Reproductive: DENIES: : Past Medical History - Social History Smoking Status: Current Every Day Smoker Chew tobacco use (# tins/day): No Frequency of alcohol use: Rare Drug Abuse: None Family History: Reviewed & Not Pertinent Patient has suicidal ideation: No Patient has homicidal ideation: No - Past Medical History Cardiac Medical History: Denies: Hx Coronary Artery Disease, Hx Heart Attack, Hx Hypertension Pulmonary Medical History: Reports: Hx Bronchitis, Hx COPD, Hx Pneumonia Denies: Hx Asthma, Hx Tuberculosis Neurological Medical History: Denies: Hx Cerebrovascular Accident, Hx Seizures Endocrine Medical History: Reports: Hx Diabetes Mellitus Type 2 Renal/ Medical History: Denies: Hx Peritoneal Dialysis GI Medical History: Reports: Hx Gastroesophageal Reflux Disease Musculoskeletal Medical History: Reports Hx Arthritis - rheumatoid, Reports Hx Musculoskeletal Deformity, Reports Hx Musculoskeletal Trauma Psychiatric Medical History: Reports: Hx Attention Deficit Hyperactivity Disorder, Hx Depression Past Surgical History: Reports: Hx Abdominal Surgery - hernia repair, Hx Nose Surgery, Hx Orthopedic Surgery - left hip - Immunizations Immunizations up to date: Yes Hx Diphtheria, Pertussis, Tetanus Vaccination: Yes - unknown Hx Pneumococcal Vaccination: 02/22/07 Vertical Provider Document - CONSTITUTIONAL Agree With Documented VS: Yes Notes: PHYSICAL EXAMINATION: GENERAL: Well-appearing, well-nourished and in no acute distress. LUNGS: Breath sounds clear to auscultation bilaterally and equal. No wheezes rales or rhonchi. HEART: Regular rate and rhythm without murmurs, rubs, gallops. ABDOMEN: Soft, nontender, nondistended abdomen. No guarding, no rebound. No masses appreciated. Normal bowel sounds present. No CVA tenderness bilaterally. Musculoskeletal: Rt knee: + arthritic changs noted without any erythema, swelling, ecchymosis, or effusion. No calf tenderness. FROM to passive/active. Strength 5+/5. N/V intact distal. + crepitus noted. Extremities: No cyanosis, clubbing, or edema b/l. Peripheral pulses 2+. Capillary refill less than 3 seconds. NEUROLOGICAL: Cranial nerves grossly intact. Normal speech, normal gait. Normal sensory, motor exams PSYCH: Normal mood, normal affect. SKIN: mid back: there is a small erythemic area approx 1cm diameter area noted that is open with scant blood noted. I was able to express sebaceous material through the wide-open wound w/o any purulence. I did break up any remaining areas within, but yielded no purulent material. No streaks. + mild tenderness. Minimal induration w/o any other areas of fluctuance. - INFECTION CONTROL TRAVEL OUTSIDE OF THE [place] IN LAST 30 DAYS: No Course - Re-evaluation Re-evalutation: 08/01/18 18:02 Patient is an afebrile, well-hydrated, 77-year-old male who presents with chronic right knee pain and an infected sebaceous cyst on his back that is already wide open and allowing for drainage. I obtained a moderate amount of sebaceous material without any purulence. No further incision and drainage is warranted at this time. Wound dressing was placed and wound instructions reviewed. Vitals are otherwise acceptable without significant tachycardia, tachypnea, or hypoxia. PE is otherwise unremarkable for any neurovascular, mass, obvious tendon/leg rupture, obvious fracture/dislocation, septic joint. Patient is nontoxic-appearing and is able to tolerate p.o. without difficulty. Patient has an allergy to sulfa. Patient was given Motrin as well as clindamycin p.o. today. I will send her home with a prescription for the clinda mycin. No further work-up warranted at this time. Recheck with your PCM in 2 to 3 days. Consider consult with orthopedics. Return to the ED with any other worsening/concerning symptoms. Patient is in agreement. - Vital Signs Vital signs: Temp Pulse Resp BP Pulse Ox 98.6 F 83 16 122/66 96 08/01/18 15:49 08/01/18 15:49 08/01/18 15:49 08/01/18 15:49 08/01/18 15:49 Discharge - Discharge Clinical Impression: Chronic pain of right knee, Infected sebaceous cyst Condition: Stable Disposition: HOME, SELF-CARE Additional Instructions: Keep the skin clean Wash with soap and water Tylenol/ibuprofen if needed Triple antibiotic ointment daily Take medication as directed Monitor for any worsening symptoms Ice, heat, elevation of the knees Recheck with your PCM in 2-3 days Consider consult with orthopedics for ongoing/worsening symptoms Return to the ED with any worsening symptoms and/or development of fever, headache, chest pain, palpitations, syncope, shortness of breath, trouble br eathing, abdominal pain, n/v/d, abscess, purulent discharge, red streaks, worsening swelling, or other worsening symptoms that are concerning to you. Prescriptions: Clindamycin HCl [Cleocin 300 mg Capsule] 300 mg PO TID #30 capsule Referrals: [facility] [Provider Group] - Follow up as needed
== END 2018-08-01 20:55 | disposition home or self-care (01) ==
LOC: ER 15:35
DX: L72.3 Sebaceous cyst (principal); L08.9 Local infection of the skin and subcutaneous tissue, unspecified; M25.561 Pain in right knee; G89.29 Other chronic pain; J44.9 Chronic obstructive pulmonary disease, unspecified; E11.9 Type 2 diabetes mellitus without complications; F17.200 Nicotine dependence, unspecified, uncomplicated
CPT/HCPCS: 99283; A9270 ×2

== ENCOUNTER → 2018-08-08 | Outpatient (CLI) | payer MEDICARE, MEDICAID | LOC: OD 11:46 | PROVIDERS: ATTEND Family Medicine | DX: E87.5 Hyperkalemia (principal) | CPT/HCPCS: 36415; 84132 ==

== ENCOUNTER → 2018-08-16 | Outpatient (CLI) | payer MEDICARE, MEDICAID | LOC: OD 13:19 | PROVIDERS: ATTEND Family Medicine | DX: E87.5 Hyperkalemia (principal) | CPT/HCPCS: 36415; 84132 ==

== ENCOUNTER 2018-09-07 13:00 | Inpatient (IN) | payer MEDICARE, MEDICAID ==
[2018-09-07 14:43] LABS: ABSOLUTE LYMPHOCYTES (AUTO) 0.8 10^3/uL (0.5-4.7); ABSOLUTE MONOCYTES (AUTO) 0.4 10^3/uL (0.1-1.4); ABSOLUTE NEUT (AUTO) 6.7 10^3/uL (1.7-8.2); BASOPHILS % (AUTO) 0.3 % (0-2); EOSINOPHILS % (AUTO) 0.5 % (0-6); HEMATOCRIT 36.4 % (37.9-51.0); HEMOGLOBIN 12.2 g/dL (13.5-17.0); LYMPHOCYTES % (AUTO) 10.1 % (13-45); MEAN CORPUSCULAR HEMOGLOBIN 30.3 pg (27.0-33.4); MEAN CORPUSCULAR HGB CONC 33.4 g/dL (32.0-36.0); MEAN CORPUSCULAR VOLUME 91 fl (80-97); MONOCYTES % (AUTO) 4.9 % (3-13); PLATELET COUNT 225 10^3/uL (150-450); RED BLOOD COUNT 4.02 10^6/uL (4.35-5.55); RED CELL DISTRIBUTION WIDTH 15.2 % (11.5-14.0); SEGMENTED NEUTROPHILS % (AUTO) 84.2 % (42-78); TOTAL CELLS COUNTED % (AUTO) 100 %
[2018-09-07 14:45] LABS: INTERNATIONAL RATION (INR) 1.13; PROTHROMBIN TIME 14.6 SEC (11.4-15.4); VENOUS BLOOD BASE EXCESS -1.8 mmol/L; VENOUS BLOOD HCO3 24.8 mmol/L (20-32); VENOUS BLOOD PCO2 48.6 mmHg (35-63); VENOUS BLOOD PH 7.33 (7.30-7.42)
[2018-09-07 14:49] LABS: APPEARANCE,URINE SLIGHTLY-CLOUDY; BILIRUBIN,URINE NEGATIVE (NEGATIVE); COLOR,URINE YELLOW; GLUCOSE, URINE NEGATIVE (NEGATIVE); KETONES,URINE TRACE mg/dL (NEGATIVE); LEUKOCYTE ESTERASE,URINE NEGATIVE (NEGATIVE); NITRITE,URINE NEGATIVE (NEGATIVE); PROTEIN,URINE 30 mg/dL (NEGATIVE); URINE SPECIFIC GRAVITY 1.016; UROBILINOGEN,URINE NEGATIVE mg/dL (<2.0)
[2018-09-07 15:10] LABS: ALANINE AMINOTRANSFERASE 17 U/L (21-72); ALBUMIN 4.3 g/dL (3.5-5.0); ALKALINE PHOSPHATASE 73 U/L (38-126); ANION GAP 12 (5-19); ASPARTATE AMINO TRANSFERASE 47 U/L (17-59); BILIRUBIN,DIRECT 0.5 mg/dL (0.0-0.4); BILIRUBIN,TOTAL 0.6 mg/dL (0.2-1.3); BLOOD UREA NITROGEN 40 mg/dL (7-20); CALCIUM 9.4 mg/dL (8.4-10.2); CARBON DIOXIDE 25 mmol/L (22-30); CHLORIDE 103 mmol/L (98-107); GLUCOSE 107 mg/dL (75-110); POTASSIUM 5.6 mmol/L (3.6-5.0); TOTAL PROTEIN 8.5 g/dL (6.3-8.2)
[2018-09-07] MEDS ORDERED: NORMAL SALINE 1000 ML 1,000 ML IV ONE (16:46)
--- NOTE | 2018-09-07 16:46 | ER Document Report ---
ED General - General Chief Complaint: Altered Mental Status Stated Complaint: LETHARGIC Time Seen by Provider: 09/07/18 14:54 Primary Care Provider: MARYLIN CALDERA MD [Primary Care Provider] - Follow up as needed Notes: 77-year-old male, coming from a custodial, presents with altered mental status and worsening mentation according to custodial staff. On arrival patient is nonverbal. Without complaints but nonverbal. According to medical records patient has dementia. History of hyperkalemia. TRAVEL OUTSIDE OF THE [place] IN LAST 30 DAYS: No - HPI Severity: Mild Associated symptoms: Other - Lethargic - Related Data Allergies/Adverse Reactions: Sulfa (Sulfonamide Antibiotics) Allergy (Verified 08/01/18 15:37) Past Medical History - General Information source: [facility] Records Cannot obtain history due to: Dementia - Social History Smoking Status: Unknown if Ever Smoked Lives with: Shelter Family History: Reviewed & Not Pertinent Patient has suicidal ideation: No Patient has homicidal ideation: No - Past Medical History Cardiac Medical History: Denies: Hx Coronary Artery Disease, Hx Heart Attack, Hx Hypertension Pulmonary Medical History: Reports: Hx Bronchitis, Hx COPD, Hx Pneumonia Denies: Hx Asthma, Hx Tuberculosis Neurological Medical History: Denies: Hx Cerebrovascular Accident, Hx Seizures Endocrine Medical History: Reports: Hx Diabetes Mellitus Type 2 Renal/ Medical History: Denies: Hx Peritoneal Dialysis GI Medical History: Reports: Hx Gastroesophageal Reflux Disease Musculoskeletal Medical History: Reports Hx Arthritis - rheumatoid, Reports Hx Musculoskeletal Deformity, Reports Hx Musculoskeletal Trauma Psychiatric Medical History: Reports: Hx Attention Deficit Hyperactivity Disorder, Hx Depression Past Surgical History: Reports: Hx Abdominal Surgery - hernia repair, Hx Nose Surgery, Hx Orthopedic Surgery - left hip - Immunizations Immunizations up to date: Yes Hx Diphtheria, Pertussis, Tetanus Vaccination: Yes - unknown Hx Pneumococcal Vaccination: 02/22/07 Review of Systems - Review of Systems -: Yes ROS unobtainable due to patient's medical condition - With dementia Physical Exam - Vital signs Vitals: Resp Pulse Ox 16 100 09/07/18 13:21 09/07/18 13:21 Interpretation: Normal - General General appearance: Appears well, Alert - HEENT Head: Normocephalic, Atraumatic Eyes: Normal Pupils: PERRL Mucous membranes: Dry - Respiratory Respiratory status: No respiratory distress Chest status: Nontender Breath sounds: Normal Chest palpation: Normal - Cardiovascular Rhythm: Regular Heart sounds: Normal auscultation Murmur: No - Abdominal Inspection: Normal Distension: No distension Bowel sounds: Normal Tenderness: Nontender Organomegaly: No organomegaly - Back Back: Normal, Nontender - Extremities General upper extremity: Normal inspection, Nontender, Normal color, Normal ROM, Normal temperature General lower extremity: Normal inspection, Nontender, Normal color, Normal ROM, Normal temperature, Normal weight bearing. No: Wali's sign - Neurological Neuro grossly intact: Yes Cognition: Confused, Short term memory loss Ana Coma Scale Verbal: Confused Ana Coma Scale Motor: Obeys Commands Sensory: Normal - Skin Skin Temperature: Warm Skin Moisture: Dry Skin Color: Normal Course - Re-evaluation Re-evalutation: 09/07/18 17:09 More likely patient is dehydrated as he looks bone dry and he does come from a custodial so highly likely. He is afebrile and his vital signs are fairly unremarkable. Has a mild hyperkalemia. Will need hydration. Will start on albuterol treatment as well. Patient is still nonverbal and noncommunicative. Uncomfortable discharging. Could be early sepsis as well but unlikely. His blood count is within normal limits. His lactate is 2.0. I am starting with 2 L of normal saline, albuterol. I have consulted with the hospitalist and we will admit at this time. 09/07/18 18:05 Laboratory 09/07/18 09/07/18 09/07/18 13:36 13:36 13:36 WBC 8.0 RBC 4.02 L Hgb 12.2 L Hct 36.4 L MCV 91 MCH 30.3 MCHC 33.4 RDW 15.2 H Plt Count 225 Seg Neutrophils % 84.2 H Lymphocytes % 10.1 L Monocytes % 4.9 Eosinophils % 0.5 Basophils % 0.3 Absolute Neutrophils 6.7 Absolute Lymphocytes 0.8 Absolute Monocytes 0.4 Absolute Eosinophils 0.0 Absolute Basophils 0.0 PT 14.6 INR 1.13 VBG pH VBG pCO2 VBG HCO3 VBG Base Excess Sodium 139.5 Potassium 5.6 H Chloride 103 Carbon Dioxide 25 Anion Gap 12 BUN 40 H Creatinine 1.45 H Est GFR ( Amer) 57 L Est GFR (Non-Af Amer) 47 L Glucose 107 Lactic Acid Calcium 9.4 Total Bilirubin 0.6 Direct Bilirubin 0.5 H Neonat Total Bilirubin Not Reportable Neonat Direct Bilirubin Not Reportable Neonat Indirect Bili Not Reportable AST 47 ALT 17 L Alkaline Phosphatase 73 Total Protein 8.5 H Albumin 4.3 Urine Color Urine Appearance Urine pH Ur Specific [place] Urine Protein Urine Glucose (UA) Urine Ketones Urine Blood Urine Nitrite Urine Bilirubin Urine Urobilinogen Ur Leukocyte Esterase Urine WBC (Auto) Urine RBC (Auto) U Hyaline Cast (Auto) Squamous Epi Cells Auto Urine Mucus (Auto) Urine Ascorbic Acid 09/07/18 09/07/18 09/07/18 13:36 13:36 14:20 WBC RBC Hgb Hct MCV MCH MCHC RDW Plt Count Seg Neutrophils % Lymphocytes % Monocytes % Eosinophils % Basophils % Absolute Neutrophils Absolute Lymphocytes Absolute Monocytes Absolute Eosinophils Absolute Basophils PT INR VBG pH 7.33 VBG pCO2 48.6 VBG HCO3 24.8 VBG Base Excess -1.8 Sodium Potassium Chloride Carbon Dioxide Anion Gap BUN Creatinine Est GFR ( Amer) Est GFR (Non-Af Amer) Glucose Lactic Acid 2.0 Calcium Total Bilirubin Direct Bilirubin Neonat Total Bilirubin Neonat Direct Bilirubin Neonat Indirect Bili AST ALT Alkaline Phosphatase Total Protein Albumin Urine Color YELLOW Urine Appearance SLIGHTLY-CLOUDY Urine pH 5.0 Ur Specific [place] 1.016 Urine Protein 30 H Urine Glucose (UA) NEGATIVE Urine Ketones TRACE H Urine Blood NEGATIVE Urine Nitrite NEGATIVE Urine Bilirubin NEGATIVE Urine Urobilinogen NEGATIVE Ur Leukocyte Esterase NEGATIVE Urine WBC (Auto) 0 Urine RBC (Auto) 1 U Hyaline Cast (Auto) 6 Squamous Epi Cells Auto <1 Urine Mucus (Auto) RARE Urine Ascorbic Acid NEGATIVE - Vital Signs Vital signs: Temp Pulse Resp BP Pulse Ox 86 16 126/86 H 100 09/07/18 13:43 09/07/18 13:43 09/07/18 13:43 09/07/18 13:43 - Laboratory Result Diagrams: 09/07/18 13:36 09/07/18 13:36 Laboratory results interpreted by me: 09/07/18 09/07/18 09/07/18 13:36 13:36 14:20 RBC 4.02 L Hgb 12.2 L Hct 36.4 L RDW 15.2 H Seg Neutrophils % 84.2 H Lymphocytes % 10.1 L Potassium 5.6 H BUN 40 H Creatinine 1.45 H Est GFR ( Amer) 57 L Est GFR (Non-Af Amer) 47 L Direct Bilirubin 0.5 H ALT 17 L Total Protein 8.5 H Urine Protein 30 H Urine Ketones TRACE H - EKG Interpretation by Me Additional EKG results interpreted by me: 09/07/18 18:06 No peak T wave. Normal QRS. AV block. Questionable a flutter. Critical Care Note - Critical Care Note Total time excluding time spent on procedures (mins): 35 Comments: Alternate history sources, hyperkalemia, consultation with specialist. Discharge - Discharge Clinical Impression: Hyperkalemia, Dehydration Altered mental status Qualifiers: Altered mental status type: unspecified Qualified Code(s): R41.82 - Altered mental status, unspecified Condition: Good Disposition: ADMITTED INPATIENT Admitting Provider: Ted (Hospitalist) Unit Admitted: Telemetry Referrals: MARYLIN CALDERA MD [Primary Care Provider] - Follow up as needed
[2018-09-07] MEDS ORDERED: ALBUTEROL SULFATE 0.083% NEB 2.5 MG/3 ML AMPUL NEB ONE (17:00)
--- NOTE | 2018-09-07 17:26 | RADIOLOGY REPORT (SQ) ---
EXAM DESCRIPTION: CHEST SINGLE VIEW COMPLETED DATE/TIME: 09/07/2018 5:13 pm REASON FOR STUDY: altered mental status COMPARISON: 08/04/2015 TECHNIQUE: Single frontal radiographic view of the chest acquired. NUMBER OF VIEWS: One view. LIMITATIONS: None. FINDINGS: LUNGS AND PLEURA: No pneumothorax. No consolidation or pleural effusion. Similar bilatera l chronic interstitial changes and apical scarring. MEDIASTINUM AND HILAR STRUCTURES: Stable. HEART AND VASCULAR STRUCTURES: Stable. BONES: No acute findings. HARDWARE: None in the chest. OTHER: No other significant finding. IMPRESSION: NO ACUTE FINDINGS. TECHNICAL DOCUMENTATION: JOB ID: [id number] [id number] 2010 [employer]- All Rights Reserved Reading location - IP/workstation name: [email or web address]
--- NOTE | 2018-09-07 19:00 | EKG REPORT ---
SEVERITY:- BORDERLINE ECG - SINUS RHYTHM 99/MIN. LEFT AXIS DEVIATION : Confirmed by: Bob Lee MD 07-Sep-2018 18:59:48
--- NOTE | 2018-09-07 19:05 | RADIOLOGY REPORT (SQ) ---
EXAM DESCRIPTION: CT HEAD WITHOUT COMPLETED DATE/TIME: 09/07/2018 6:25 pm REASON FOR STUDY: altered mental status COMPARISON: CT brain 08/04/2015, 01/05/2015, 07/23/2013 TECHNIQUE: Axial images acquired through the brain without intravenous contrast. Images reviewed wi th bone, brain and subdural windows. Additional sagittal and coronal reconstructions were generated. Images stored on PACS. All CT scanners at this facility use dose modulation, iterative reconstruction, and/or weight based d osing when appropriate to reduce radiation dose to as low as reasonably achievable (ALARA). [facility]: Dose Right [facility]: CareDose [facility]: Dose Right [facility]: Teradose 4D [facility]: [employer] RADIATION DOSE: CT Rad equipment meets quality standard of care and radiation dose reduction techniq ues were employed. CTDIvol: 53.2 mGy. DLP: 991 mGy-cm. mGy. LIMITATIONS: None. FINDINGS: VENTRICLES: Normal size and contour. CEREBRUM: Tiny parenchymal hemorrhage is evident in the left lateral basal ganglia, 6 to 7 mm in diam eter, 60 Hounsfield units in density. There is a subacute nonhemorrhagic infarct in the left basal ganglia/deep periventricular white matte r evident on axial image 20. These findings were called to Dr Arteaga 1855 hours 09/07/2018. Remainder of the cerebrum demonstrates moderate chronic small vessel ischemic change in the bifrontal and biparietal white matter, and an old left frontal cortical perisylvian infarct. CEREBELLUM: No acute findings. Old infarct in the mid yuly. Cerebellar chronic white matter disease EXTRAAXIAL SPACES: No fluid collections. No masses. ORBITS AND GLOBE: No intra- or extraconal masses. Normal contour of globe without masses. CALVARIUM: No fracture. PARANASAL SINUSES: No fluid or mucosal thickening. SOFT TISSUES: No mass or hematoma. OTHER: No other significant finding. IMPRESSION: Subacute infarct left basal ganglia 6 to 7 mm acute parenchymal hemorrhage inferior left basal ganglia EVIDENCE OF ACUTE STROKE: Yes COMMENT: Pertinent findings on the imaging study reported as a CRITICAL RESULT to Dr. Arteaga at18: 58 on 09/07/2018. Category of Critical Result: Acute stroke with acute hemorrhage Quality ID # [id number]: Final reports with documentation of one or more dose reduction techniques (e.g., Au tomated exposure control, adjustment of the mA and/or kV according to patient size, use of iterative reconstruction technique) TECHNICAL DOCUMENTATION: JOB ID: [id number] [employer]- All Rights Reserved Reading location - IP/workstation name: [email or web address]
[2018-09-07] MEDS ORDERED: GLUCAGON,HUMAN RECOMB 1 MG INJ SUBCUT PRN (19:21)
[2018-09-07] MEDS ORDERED: LABETALOL HCL INJ 20 MG/4 ML DISP.SYRIN IV PRN (19:21)
[2018-09-07] MEDS ORDERED: ONDANSETRON HCL INJ/PF 4 MG/2 ML SDV IV PRN (19:21)
[2018-09-07] MEDS ORDERED: DEXTROSE 40% GEL 15 GM TUBE PO PRN ×2 (19:21)
[2018-09-07] MEDS ORDERED: ENALAPRILAT DIHYDRATE INJ/PF 1.25 MG/1 ML SDV IV PRN (19:21)
[2018-09-07] MEDS ORDERED: DEXTROSE 50%-WATER 25 GM/50 ML DISP.SYRIN IV PRN ×2 (19:21)
[2018-09-07] MEDS ORDERED: FENTANYL CITRATE INJ/PF 100 MCG/2 ML AMPUL IV PRN ×2 (19:42→19:43)
[2018-09-07] MEDS ORDERED: LEVALBUTEROL HCL NEB 0.63 MG/3 ML AMPUL NEB PRN (19:45)
--- NOTE | 2018-09-07 20:38 | PDOC H&P ---
History of Present Illness Admission Date/PCP: 09/07/18 18:22 MARYLIN CALDERA MD Patient complains of: Referred from the senior care. Has become nonverbal and appears dehydrated History of Present Illness: SUREKHA BANG is a 77 year old male who according to the emergency room physician he was interacting with the senior care staff normally the day before. Evidently he had acute onset of weakness and aphasia. When he presented to the facility there was some red liquid around his mouth possibly from attempts at feeding him Jell-O. The patient is unable to provide any history. I obtained most of the history from old [facility] records. The patient's BUN and creatinine are elevated. His blood pressure is slightly elevated and he is slightly tachycardic. He may be dehydrated (BUN and creatinine are up) and he was referred to the hospital service for admission. A CT scan of the head is pending. Past Medical History Cardiac Medical History: Denies: Coronary Artery Disease, Myocardial Infarction, Hypertension Pulmonary Medical History: Reports: Bronchitis, Chronic Obstructive Pulmonary Disease (COPD), Pneumonia Denies: Asthma, Tuberculosis Neurological Medical History: Reports: Ischemic CVA Denies: Seizures Endocrine Medical History: Reports: Diabetes Mellitus Type 2 Renal/ Medical History: Denies: Chronic Kidney Disease Malignancy Medical History: Reports: None GI Medical History: Reports: Gastroesophageal Reflux Disease Musculoskeltal Medical History: Reports: Arthritis - rheumatoid Skin Medical History: Reports: None Psychiatric Medical History: Reports: Attention Deficit Hyperactivity Disorder, Depression Hematology: Reports: Anemia Past Surgical History Past Surgical History: Reports: Herniorrhaphy, Orthopedic Surgery - left hip Social History Information Source: Patient - The patient was aphasic and unable to provide any history, [facility] Records Lives with: [facility] Smoking Status: Unknown if Ever Smoked Frequency of Alcohol Use: None Hx Recreational Drug Use: No Drugs: Marijuana Hx Prescription Drug Abuse: No Family History Family History: Reviewed & Not Pertinent - Patient unable to provide any details Parental Family History Reviewed: Yes Children Family History Reviewed: Yes Sibling(s) Family History Reviewed.: Yes Medication/Allergy Home Medications: Acetaminophen [Tylenol 325 mg Tablet] 650 mg PO Q4HP PRN 09/07/18 Diclofenac Sodium [Voltaren] 2 gm TP TID MDD hands 09/07/18 Diclofenac Sodium [Voltaren] 4 gm TP TID MDD knees 09/07/18 Docusate Sodium [Colace 100 mg Capsule] 100 mg PO DAILY 09/07/18 Folic Acid [Folvite 1 mg Tablet] 1 mg PO DAILY 09/07/18 Insulin Glargine,Hum.rec.anlog [Lantus Insulin 100 Unit/1 ml 10 ml] 15 unit SUBCUT DAILY 09/07/18 Losartan Potassium [Cozaar 25 mg Tablet] 12.5 mg PO DAILY 09/07/18 Metformin HCl [Glucophage 500 mg Tablet] 1,000 mg PO BID 09/07/18 Oxycodone HCl [Oxy-Ir 5 mg Tablet] 5 mg PO Q4HP PRN 09/07/18 Pravastatin Sodium [Pravachol] 20 mg PO DAILY 09/07/18 Allergies/Adverse Reactions: Sulfa (Sulfonamide Antibiotics) Allergy (Verified 08/01/18 15:37) Review of Systems ROS unobtainable: Other - Patient is a phasic Constitutional: PRESENT: weakness - Appears quite frail Nose, Mouth, and Throat: PRESENT: other - Very dry mouth Neurological: PRESENT: other - Aphasic Physical Exam Vital Signs: Temp Pulse Resp BP Pulse Ox 98.5 F 86 16 126/86 H 100 09/07/18 18:08 09/07/18 13:43 09/07/18 13:43 09/07/18 13:43 09/07/18 13:43 General appearance: PRESENT: mild distress, thin Head exam: PRESENT: atraumatic, normocephalic, other - Temporal muscle wasting Eye exam: PRESENT: conjunctiva pale. ABSENT: scleral icterus Ear exam: PRESENT: normal external ear exam Mouth exam: PRESENT: dry mucosa, other - Was unable to stick out his tongue on command Neck exam: ABSENT: lymphadenopathy, tracheal deviation Respiratory exam: PRESENT: clear to auscultation kaz, symmetrical, unlabored. ABSENT: accessory muscle use, rales, rhonchi, tachypnea, wheezes Cardiovascular exam: PRESENT: irregular rhythm Pulses: PRESENT: normal radial pulses, normal dorsalis pedis pul GI/Abdominal exam: PRESENT: normal bowel sounds, soft. ABSENT: distended, tenderness Rectal exam: PRESENT: deferred Extremities exam: ABSENT: pedal edema Musculoskeletal exam: ABSENT: ambulatory Neurological exam: PRESENT: alert, awake, oriented to person - Appear to be oriented to person, aphasic Psychiatric exam: PRESENT: flat affect, other - When the patient was informed of the imaging results indicating stroke the patient's affect reflected frustration and likely depression. ABSENT: agitated, anxious Focused psych exam: ABSENT: delusional, restlessness Results Laboratory Results: 09/07/18 13:36 09/07/18 13:36 09/07/18 09/07/18 09/07/18 13:36 13:36 13:36 WBC 8.0 RBC 4.02 L Hgb 12.2 L Hct 36.4 L MCV 91 MCH 30.3 MCHC 33.4 RDW 15.2 H Plt Count 225 Seg Neutrophils % 84.2 H Lymphocytes % 10.1 L Monocytes % 4.9 Eosinophils % 0.5 Basophils % 0.3 Absolute Neutrophils 6.7 Absolute Lymphocytes 0.8 Absolute Monocytes 0.4 Absolute Eosinophils 0.0 Absolute Basophils 0.0 VBG pH VBG pCO2 VBG HCO3 VBG Base Excess Sodium 139.5 Potassium 5.6 H Chloride 103 Carbon Dioxide 25 Anion Gap 12 BUN 40 H Creatinine 1.45 H Est GFR ( Amer) 57 L Est GFR (Non-Af Amer) 47 L Glucose 107 Lactic Acid 2.0 Calcium 9.4 Total Bilirubin 0.6 AST 47 ALT 17 L Alkaline Phosphatase 73 Total Protein 8.5 H Albumin 4.3 Urine Color Urine Appearance Urine pH Ur Specific [place] Urine Protein Urine Glucose (UA) Urine Ketones Urine Blood Urine Nitrite Ur Leukocyte Esterase Urine WBC (Auto) Urine RBC (Auto) 09/07/18 09/07/18 13:36 14:20 WBC RBC Hgb Hct MCV MCH MCHC RDW Plt Count Seg Neutrophils % Lymphocytes % Monocytes % Eosinophils % Basophils % Absolute Neutrophils Absolute Lymphocytes Absolute Monocytes Absolute Eosinophils Absolute Basophils VBG pH 7.33 VBG pCO2 48.6 VBG HCO3 24.8 VBG Base Excess -1.8 Sodium Potassium Chloride Carbon Dioxide Anion Gap BUN Creatinine Est GFR ( Amer) Est GFR (Non-Af Amer) Glucose Lactic Acid Calcium Total Bilirubin AST ALT Alkaline Phosphatase Total Protein Albumin Urine Color YELLOW Urine Appearance SLIGHTLY-CLOUDY Urine pH 5.0 Ur Specific [place] 1.016 Urine Protein 30 H Urine Glucose (UA) NEGATIVE Urine Ketones TRACE H Urine Blood NEGATIVE Urine Nitrite NEGATIVE Ur Leukocyte Esterase NEGATIVE Urine WBC (Auto) 0 Urine RBC (Auto) 1 Impressions: Chest X-Ray 09/07/18 17:00 IMPRESSION: NO ACUTE FINDINGS. Assessment and Plan - Diagnosis (1) Hemorrhagic stroke Is this a current diagnosis for this admission?: Yes Plan: 09/07/2018-CT scan revealed an acute hemorrhagic stroke left lateral basal ganglia approximately 6 to 7 mm in diameter. The patient will be admitted to [facility]. This is not a surgical issue. The patient does not appear to be in any c ondition to attempt a bedside swallow exam. We will administer intravenous medications for the time being. We will try and keep his systolic blood pressure at approximately 120 mmHg to 130 mmHg. He is on losartan 12.5 mg daily. (2) Ischemic stroke Is this a current diagnosis for this admission?: Yes Plan: 09/07/2018-also noted on the CT scan was a subacute nonhemorrhagic infarct in the left basal ganglia/deep periventricular white matter. Because of the hemorrhagic stroke I will not put the patient on aspirin at this time. We will try and control his blood pressure. He is not a surgical candidate for any intervention including intervention of the carotid artery. We will continue his statin therapy when he is able to swallow safely, return to his antihypertensives and after several weeks start a baby aspirin daily. (3) Atrial fibrillation Qualifiers: Atrial fibrillation type: unspecified Qualified Code(s): I48.91 - Unspecified atrial fibrillation Is this a current diagnosis for this admission?: Yes Plan: 09/07/2018-there is no indication of a history of atrial fibrillation. EKG today reveals atrial fibrillation. The patient will receive digoxin by intravenous to control his rate. Once he is able to take oral medications we will institute beta-reina therapy. No anticoagulation due to the hemorrhagic stroke. (4) Aphasia Is this a current diagnosis for this admission?: Yes Plan: 09/07/2018-the patient is nonverbal. He did communicate with subtle nodding of his head. At this point I do not feel it is safe to perform a bedside swallow exam. I will have speech therapy see the patient. This evening he was unable to verbally answer any questions although it did appear that he understood what I was saying and was trying to answer. If the patient has dysphagia will need to talk about either nasogastric tube temporarily or PEG tube permanently. He will remain n.p.o. for now. (5) Hypertension Qualifiers: Hypertension type: essential hypertension Qualified Code(s): I10 - Essential (primary) hypertension Is this a current diagnosis for this admission?: Yes Plan: 09/07/2018-the patient has a history of hypertension. He is on losartan 12.5 mg daily. We will use IV enalapril at this time as he is n.p.o. (6) Dehydration Is this a current diagnosis for this admission?: Yes Plan: 09/07/2018-the patient's BUN and creatinine are elevated. Reviewing his old blood work for the last several years his serum creatinine has been normal. We will institute IV fluids, monitor his blood pressure, monitor his intake and output as well as his electrolytes and renal function. (7) Hyperkalemia Is this a current diagnosis for this admission?: Yes Plan: 09/07/2018-secondary to the dehydration and acute kidney injury. Will administer IV fluids and recheck electrolytes. (8) Acute kidney injury Is this a current diagnosis for this admission?: Yes Plan: 09/07/2018-secondary to dehydration with elevated BUN, creatinine and potassium. Will administer IV fluids and recheck laboratory studies. The renal function should return to normal with hydration. (9) Type 2 diabetes mellitus Qualifiers: Diabetes mellitus long term acute care registered nurse insulin use: with long term acute care registered nurse use Is this a current diagnosis for this admission?: Yes Plan: 09/07/2018-the patient is on metformin and Lantus. We will check fingersticks every 6 hours and utilize a sliding scale. We will hold the Lantus and metformin until the patient begins an oral diet or tube feeding which ever comes first. - Time Time Spent with patient: 35 or more minutes Medications reviewed and adjusted accordingly: Yes Anticipated discharge: SNF - The patient will return to his long-term care facility ([facility]) - Inpatient Certification Based on my medical assessment, after consideration of the patient's comorbidities, presenting symptoms, or acuity I expect that the services needed warrant INPATIENT care.: Yes I certify that my determination is in accordance with my understanding of Medicare's requirements for reasonable and necessary INPATIENT services [42 CFR 412.3e].: Yes Medical Necessity: Need Close Monitoring Due to Risk of Patient Decompensation, Need For IV Fluids, Need For Continuous Telemetry Monitoring, Need for Neurologi kendal Checks, Risk of Complication if Not Cared For in Hospital Post Hospital Care: D/C Shut Off Worker Documentation
--- NOTE | 2018-09-07 21:04 | ADVANCED CARE ---
- Diagnosis (1) Hemorrhagic stroke Diagnosis Current: Yes (2) Ischemic stroke Diagnosis Current: Yes (3) Atrial fibrillation Diagnosis Current: Yes (4) Aphasia Diagnosis Current: Yes (5) Hypertension Diagnosis Current: Yes (6) Dehydration Diagnosis Current: Yes (7) Hyperkalemia Diagnosis Current: Yes (8) Acute kidney injury Diagnosis Current: Yes (9) Type 2 diabetes mellitus Diagnosis Current: Yes Attendance: Self and the patient Resuscitation Status: Full Code Discussion: I did call the [facility] facility to confirm his CODE STATUS. With the new diagnosis of stroke and his aphasia it was difficult to carry on conversation but I did review his medical history. Because of the shock of the new diagnoses I thought it best to review status in the morning. He already has permanent resident of [facility] in [facility]. This is the second occurrence of stroke and he has subacute nonhemorrhagic and an acute hemorrhagic stroke. If he does not pass a swallowing study I will review PEG tube placement with him. Depending on his reassessment tomorrow we might consider palliative care and/or hospice consult. Care Planning Goals: We will need to determine the patient's thoughts now that he has a new stroke. Document(s) Completed: None Time Spent: 18 minutes
[2018-09-07] MEDS: ACETAMINOPHEN 650 MG SUPP.RECT PR PRN (23:16)
[2018-09-07 23:21] LABS: ANION GAP 10 (5-19); BLOOD UREA NITROGEN 32 mg/dL (7-20); CALCIUM 8.8 mg/dL (8.4-10.2); CARBON DIOXIDE 22 mmol/L (22-30); CHLORIDE 105 mmol/L (98-107); GLUCOSE 136 mg/dL (75-110)
[2018-09-07 23:40] LABS: POTASSIUM 4.4 mmol/L (3.6-5.0)
[2018-09-08] MEDS: INSULIN LISPRO 100 UNIT/ML 3 ML VIAL SUBCUT SCH ×5 (01:04→23:41)
[2018-09-08] MEDS: ENALAPRILAT DIHYDRATE INJ/PF 1.25 MG/1 ML SDV IV SCH ×3 (03:18→12:17)
[2018-09-08] MEDS: NORMAL SALINE 1000 ML 1,000 ML IV PRN ×3 (03:22→23:23)
[2018-09-08 05:06] LABS: ABSOLUTE EOSINOPHILS # (AUTO) 0.1 10^3/uL (0.0-0.6); ABSOLUTE LYMPHOCYTES (AUTO) 1.3 10^3/uL (0.5-4.7); ABSOLUTE MONOCYTES (AUTO) 0.5 10^3/uL (0.1-1.4); ABSOLUTE NEUT (AUTO) 4.3 10^3/uL (1.7-8.2); BASOPHILS % (AUTO) 0.6 % (0-2); EOSINOPHILS % (AUTO) 1.1 % (0-6); HEMATOCRIT 32.3 % (37.9-51.0); HEMOGLOBIN 10.8 g/dL (13.5-17.0); LYMPHOCYTES % (AUTO) 21.1 % (13-45); MEAN CORPUSCULAR HEMOGLOBIN 30.2 pg (27.0-33.4); MEAN CORPUSCULAR HGB CONC 33.5 g/dL (32.0-36.0); MEAN CORPUSCULAR VOLUME 90 fl (80-97); MONOCYTES % (AUTO) 8.7 % (3-13); PLATELET COUNT 198 10^3/uL (150-450); RED BLOOD COUNT 3.57 10^6/uL (4.35-5.55); RED CELL DISTRIBUTION WIDTH 15.4 % (11.5-14.0); SEGMENTED NEUTROPHILS % (AUTO) 68.5 % (42-78); TOTAL CELLS COUNTED % (AUTO) 100 %; WHITE BLOOD COUNT 6.2 10^3/uL (4.0-10.5)
[2018-09-08 05:24] LABS: ANION GAP 9 (5-19); BLOOD UREA NITROGEN 32 mg/dL (7-20); CALCIUM 8.6 mg/dL (8.4-10.2); CARBON DIOXIDE 24 mmol/L (22-30); CHLORIDE 107 mmol/L (98-107); CHOLESTEROL 97.51 mg/dL (0-200); GLUCOSE 112 mg/dL (75-110); POTASSIUM 4.2 mmol/L (3.6-5.0); TRIGLYCERIDES 111 mg/dL (<150)
[2018-09-08 05:34] LABS: DIRECT LDL 51 mg/dL (<100)
--- NOTE | 2018-09-08 09:01 | EKG REPORT ---
SEVERITY:- OTHERWISE NORMAL ECG - SINUS RHYTHM LEFT AXIS DEVIATION : Confirmed by: Bob Lee MD 08-Sep-2018 09:00:24
[2018-09-08] MEDS: DIGOXIN INJ 0.5 MG/2 ML AMPULE IV SCH (10:10)
[2018-09-08] MEDS: PANTOPRAZOLE SODIUM 40 MG VIAL IV SCH (10:10)
[2018-09-08] MEDS ORDERED: VANCOMYCIN HCL 0 MG in DEXTROSE 5%-WATER 250 ML IV NR (11:15)
--- NOTE | 2018-09-08 11:55 | RADIOLOGY REPORT (SQ) ---
EXAM DESCRIPTION: CT HEAD WITHOUT COMPLETED DATE/TIME: 09/08/2018 11:40 am REASON FOR STUDY: Reassess hemorrhagic stroke COMPARISON: CT BRAIN 09/07/2018, 08/04/2015 TECHNIQUE: Axial images acquired through the brain without intravenous contrast. Images reviewed wi th bone, brain and subdural windows. Additional sagittal and coronal reconstructions were generated. Images stored on PACS. All CT scanners at this facility use dose modulation, iterative reconstruction, and/or weight based d osing when appropriate to reduce radiation dose to as low as reasonably achievable (ALARA). [facility]: Dose Right [facility]: CareDose [facility]: Dose Right [facility]: Teradose 4D [facility]: [employer] RADIATION DOSE: CT Rad equipment meets quality standard of care and radiation dose reduction techniq ues were employed. CTDIvol: 53.2 mGy. DLP: 1070 mGy-cm. mGy. LIMITATIONS: None. FINDINGS: VENTRICLES: Normal size and contour. CEREBRUM: Early subacute left basal ganglia infarct, punctate acute hemorrhage in the left inferior b marj ganglia are unchanged from 09/07/2018. No change in chronic bifrontal and biparietal hemispheric small vessel white matter disease and old l eft frontal perisylvian infarct. CEREBELLUM: Calcifications in the midline yuly, old pontine infarcts, old left cerebellar lacunar inf arct unchanged. EXTRAAXIAL SPACES: No fluid collections. No masses. ORBITS AND GLOBE: No intra- or extraconal masses. Post bilateral cataract surgery CALVARIUM: No fracture. PARANASAL SINUSES: No fluid or mucosal thickening. SOFT TISSUES: No mass or hematoma. OTHER: No other significant finding. IMPRESSION: No change from yesterday. EVIDENCE OF ACUTE STROKE: NO. COMMENT: Quality ID # [id number]: Final reports with documentation of one or more dose reduction techniques (e.g., Automated exposure control, adjustment of the mA and/or kV according to patient size, use of iterative reconstruction technique) TECHNICAL DOCUMENTATION: JOB ID: [id number] [employer]- All Rights Reserved Reading location - IP/workstation name: [email or web address]
--- NOTE | 2018-09-08 13:29 | RADIOLOGY REPORT (SQ) ---
EXAM DESCRIPTION: CHEST SINGLE VIEW COMPLETED DATE/TIME: 09/08/2018 11:57 am REASON FOR STUDY: Aspiration pneumonia COMPARISON: AP chest 09/07/2018, 08/04/2015 EXAM PARAMETERS: NUMBER OF VIEWS: One view. TECHNIQUE: Single frontal radiographic view of the chest acquired. RADIATION DOSE: NA LIMITATIONS: None. FINDINGS: LUNGS AND PLEURA: Chronic increased interstitial markings at the lung bases. Chronic fibr osis at the right lung apex. No acute infiltrates. No pleural effusion or pneumothorax. MEDIASTINUM AND HILAR STRUCTURES: No masses. Contour normal. HEART AND VASCULAR STRUCTURES: Heart normal in size. Normal vasculature. BONES: Osteopenic. Arthritis right shoulder HARDWARE: Nasogastric tube tip and side port in the stomach. OTHER: No other significant finding. IMPRESSION: Nasogastric tube tip and side port in the stomach. Chronic increased interstitial markings at the lung bases and right apex. No acute infiltrates TECHNICAL DOCUMENTATION: JOB ID: [id number] [employer]- All Rights Reserved Reading location - IP/workstation name: [email or web address]
--- NOTE | 2018-09-08 13:30 | RADIOLOGY REPORT (SQ) ---
EXAM DESCRIPTION: KUB/ABDOMEN (SINGLE VIEW) COMPLETED DATE/TIME: 09/08/2018 11:57 am REASON FOR STUDY: Check nasogastric tube placement COMPARISON: None. NUMBER OF VIEWS: One view. TECHNIQUE: Supine radiographic image of the abdomen acquired. LIMITATIONS: None. FINDINGS: BOWEL GAS PATTERN: Normal bowel gas pattern. No dilated loops. CALCIFICATIONS: Calcified abdominal aorta without aneurysm. SOFT TISSUES: No gross mass or suggestion of organomegaly. HARDWARE: Nasogastric tube tip and side port in the stomach BONES: Vertebra plana deformities T12 and L1 OTHER: Old left hip replacement, clips right upper quadrant post cholecystectomy IMPRESSION: Nasogastric tube tip and side port in the stomach. Grossly nonobstructive bowel gas smith evans TECHNICAL DOCUMENTATION: JOB ID: [id number] [employer]- All Rights Reserved Reading location - IP/workstation name: [email or web address]
[2018-09-08] MEDS ORDERED: FUROSEMIDE INJ/PF 20 MG/2 ML SDV IV ONE (14:24)
[2018-09-08] MEDS: ACETAMINOPHEN 650 MG SUPP.RECT PR PRN (15:04)
[2018-09-08] MEDS: PIPERACILLIN SODIUM/TAZOBACTAM 3.375 GM in NORMAL SALINE 100 ML IV SCH ×2 (15:05→22:37)
[2018-09-08] MEDS: VANCOMYCIN HCL 1,500 MG in DEXTROSE 5%-WATER 250 ML IV SCH (16:39)
--- NOTE | 2018-09-08 19:56 | PDOC PROGRESS REPORT ---
Subjective Progress Note for:: 09/08/18 Subjective:: patient seems worse today. Not even making eye contact. Still nonverbal. No spontaneous movement noted. Reason For Visit: ACUTE HEMORRHAGIC STROKE Physical Exam Vital Signs: Temp Pulse Resp BP Pulse Ox 100.0 F 81 16 152/69 H 97 09/08/18 10:40 09/08/18 09:07 09/08/18 09:07 09/08/18 08:01 09/08/18 09:07 Intake & Output 09/07/18 09/08/18 09/09/18 06:59 06:59 06:59 Intake Total 1000 Balance 1000 Weight 58.967 kg General appearance: PRESENT: mild distress, thin - Very frail appearing 77-year-old male, other - Temporal wasting Head exam: PRESENT: atraumatic, normocephalic Ear exam: PRESENT: normal external ear exam Mouth exam: PRESENT: dry mucosa, tongue midline Teeth exam: PRESENT: poor dentation Respiratory exam: PRESENT: rhonchi - Right side, symmetrical, other - Very congested cough. ABSENT: rales, tachypnea, wheezes Cardiovascular exam: PRESENT: RRR, +S1, +S2 GI/Abdominal exam: PRESENT: hypoactive bowel sounds, soft. ABSENT: distended, tenderness Musculoskeletal exam: PRESENT: normal inspection - Extremely frail appearing, other - Marked changes in both hands with rheumatoid arthritis Neurological exam: PRESENT: awake, aphasic, other - He hardly moves spont aneously. I did ask him to plantar flex his feet and after several seconds the right foot barely move. It was difficult to determine if it was spontaneous or voluntary. No movement of his upper extremities was noted.. ABSENT: alert - He is not very alert. He hardly opens his eyes. He does not nod his head to answer questions like he did yesterday. Psychiatric exam: PRESENT: unusual affect - It almost reflects frustration. ABSENT: agitated, anxious - He does not appear anxious Focused psych exam: ABSENT: restlessness Results Laboratory Results: 09/08/18 04:55 09/08/18 04:55 09/07/18 09/07/18 09/07/18 13:36 13:36 13:36 WBC 8.0 RBC 4.02 L Hgb 12.2 L Hct 36.4 L MCV 91 MCH 30.3 MCHC 33.4 RDW 15.2 H Plt Count 225 Seg Neutrophils % 84.2 H Lymphocytes % 10.1 L Monocytes % 4.9 Eosinophils % 0.5 Basophils % 0.3 Absolute Neutrophils 6.7 Absolute Lymphocytes 0.8 Absolute Monocytes 0.4 Absolute Eosinophils 0.0 Absolute Basophils 0.0 VBG pH VBG pCO2 VBG HCO3 VBG Base Excess Sodium 139.5 Potassium 5.6 H Chloride 103 Carbon Dioxide 25 Anion Gap 12 BUN 40 H Creatinine 1.45 H Est GFR ( Amer) 57 L Est GFR (Non-Af Amer) 47 L Glucose 107 Lactic Acid 2.0 Calcium 9.4 Magnesium Total Bilirubin 0.6 AST 47 ALT 17 L Alkaline Phosphatase 73 Total Protein 8.5 H Albumin 4.3 Triglycerides Cholesterol LDL Cholesterol Direct VLDL Cholesterol HDL Cholesterol TSH Urine Color Urine Appearance Urine pH Ur Specific [place] Urine Protein Urine Glucose (UA) Urine Ketones Urine Blood Urine Nitrite Ur Leukocyte Esterase Urine WBC (Auto) Urine RBC (Auto) 09/07/18 09/07/18 09/07/18 13:36 14:20 22:50 WBC RBC Hgb Hct MCV MCH MCHC RDW Plt Count Seg Neutrophils % Lymphocytes % Monocytes % Eosinophils % Basophils % Absolute Neutrophils Absolute Lymphocytes Absolute Monocytes Absolute Eosinophils Absolute Basophils VBG pH 7.33 VBG pCO2 48.6 VBG HCO3 24.8 VBG Base Excess -1.8 Sodium 137.1 Potassium 4.4 D Chloride 105 Carbon Dioxide 22 Anion Gap 10 BUN 32 H Creatinine 1.23 Est GFR ( Amer) > 60 Est GFR (Non-Af Amer) 57 L Glucose 136 H Lactic Acid Calcium 8.8 Magnesium 1.6 Total Bilirubin AST ALT Alkaline Phosphatase Total Protein Albumin Triglycerides Cholesterol LDL Cholesterol Direct VLDL Cholesterol HDL Cholesterol TSH Urine Color YELLOW Urine Appearance SLIGHTLY-CLOUDY Urine pH 5.0 Ur Specific [place] 1.016 Urine Protein 30 H Urine Glucose (UA) NEGATIVE Urine Ketones TRACE H Urine Blood NEGATIVE Urine Nitrite NEGATIVE Ur Leukocyte Esterase NEGATIVE Urine WBC (Auto) 0 Urine RBC (Auto) 1 09/08/18 09/08/18 09/08/18 04:55 04:55 04:55 WBC 6.2 RBC 3.57 L Hgb 10.8 L Hct 32.3 L MCV 90 MCH 30.2 MCHC 33.5 RDW 15.4 H Plt Count 198 Seg Neutrophils % 68.5 Lymphocytes % 21.1 Monocytes % 8.7 Eosinophils % 1.1 Basophils % 0.6 Absolute Neutrophils 4.3 Absolute Lymphocytes 1.3 Absolute Monocytes 0.5 Absolute Eosinophils 0.1 Absolute Basophils 0.0 VBG pH VBG pCO2 VBG HCO3 VBG Base Excess Sodium 139.6 Potassium 4.2 Chloride 107 Carbon Dioxide 24 Anion Gap 9 BUN 32 H Creatinine 1.25 Est GFR ( Amer) > 60 Est GFR (Non-Af Amer) 56 L Glucose 112 H Lactic Acid Calcium 8.6 Magnesium 1.7 Total Bilirubin AST ALT Alkaline Phosphatase Total Protein Albumin Triglycerides 111 Cholesterol 97.51 LDL Cholesterol Direct 51 VLDL Cholesterol 22.0 HDL Cholesterol 26 L TSH 0.73 Urine Color Urine Appearance Urine pH Ur Specific [place] Urine Protein Urine Glucose (UA) Urine Ketones Urine Blood Urine Nitrite Ur Leukocyte Esterase Urine WBC (Auto) Urine RBC (Auto) Impressions: Chest X-Ray 09/07/18 17:00 IMPRESSION: NO ACUTE FINDINGS. Head CT 09/07/18 17:05 IMPRESSION: Subacute infarct left basal ganglia 6 to 7 mm acute parenchymal hemorrhage inferior left basal ganglia EVIDENCE OF ACUTE STROKE: Yes Assessment and Plan - Diagnosis (1) Hemorrhagic stroke Is this a current diagnosis for this admission?: Yes Plan: 09/07/2018-CT scan revealed an acute hemorrhagic stroke left lateral basal ganglia approximately 6 to 7 mm in diameter. The patient will be admitted to [facility]. This is not a surgical issue. The patient does not appear to be in any condition to attempt a bedside swallow exam. We will administer intravenous medications for the time being. We will try and keep his systolic blood pressure at approximately 120 mmHg to 130 mmHg. He is on losartan 12.5 mg daily. 09/08/2018-the patient is clearly worse than yesterday. I am going to repeat his CT scan. Because he is not safe to perform a bedside swallow I am going to insert a nasogastric tube to administer medications. (2) Ischemic stroke Is this a current diagnosis for this admission?: Yes Plan: 09/07/2018-also noted on the CT scan was a subacute nonhemorrhagic infarct in the left basal ganglia/deep periventricular white matter. Because of the hemorrhagic stroke I will not put the patient on aspirin at this time. We will try and control his blood pressure. He is not a surgical candidate for any intervention including intervention of the carotid artery. We will continue his statin therapy when he is able to swallow safely, return to his antihypertensives and after several weeks start a baby aspirin daily. 09/08/2018-at this point we will hold off on aspirin therapy. I have pushed the films to [facility]. I will consult by telephone with neurology to see if they have any other treatment suggestions. (3) Atrial fibrillation Qualifiers: Atrial fibrillation type: unspecified Qualified Code(s): I48.91 - Unspecified atrial fibrillation Is this a current diagnosis for this admission?: Yes Plan: 09/07/2018-there is no indication of a history of atrial fibrillation. EKG today reveals atrial fibrillation. The patient will receive digoxin by intravenous to control his rate. Once he is able to take oral medications we will institute beta-reina therapy. No anticoagulation due to the hemorrhagic stroke. 09/08/2018-the patient is in sinus rhythm likely from the digoxin. Continue digoxin and monitor. (4) Aphasia Is this a current diagnosis for this admission?: Yes Plan: 09/07/2018-the patient is nonverbal. He did communicate with subtle nodding of his head. At this point I do not feel it is safe to perform a bedside swallow exam. I will have speech therapy see the patient. This evening he was unable to verbally answer any questions although it did appear that he understood what I was saying and was trying to answer. If the patient has dysphagia will need to talk about either nasogastric tube temporarily or PEG tube permanently. He will remain n.p.o. for now. 09/08/2018-the patient did not attempt to verbalize anything today, where has he did yesterday. He appears to have a more dense aphasia. With some improvement I will order speech therapy to work with the patient. (5) Hypertension Qualifiers: Hypertension type: essential hypertension Qualified Code(s): I10 - Essential (primary) hypertension Is this a current diagnosis for this admission?: Yes Plan: 09/07/2018-the patient has a history of hypertension. He is on losartan 12.5 mg daily. We will use IV enalapril at this time as he is n.p.o. 09/08/2018-I have placed the nasogastric tube. I have started the losartan through the tube and have stopped his IV enalapril. (6) Dehydration Is this a current diagnosis for this admission?: Yes Plan: 09/07/2018-the patient's BUN and creatinine are elevated. Reviewing his old blood work for the last several years his serum creatinine has been normal. We will institute IV fluids, monitor his blood pressure, monitor his intake and output as well as his electrolytes and renal function. 09/08/2018-the patient sounded congested today. I therefore backed off on his IV fluids. Now that he has a nasogastric tube I will also administer free water through the tube. (7) Hyperkalemia Is this a current diagnosis for this admission?: Yes Plan: 09/07/2018-secondary to the dehydration and acute kidney injury. Will administer IV fluids and recheck electrolytes. 09/08/2018-resolved with IV fluids (8) Acute kidney injury Is this a current diagnosis for this admission?: Yes Plan: 09/07/2018-secondary to dehydration with elevated BUN, creatinine and potassium. Will administer IV fluids and recheck laboratory studies. The renal function should return to normal with hydration. 09/08/2018-BUN is still elevated but serum creatinine is back to normal. Will adjust IV fluids as noted above. (9) Type 2 diabetes mellitus Qualifiers: Diabetes mellitus snf insulin use: with snf use Is this a current diagnosis for this admission?: Yes Plan: 09/07/2018-the patient is on metformin and Lantus. We will check fingersticks every 6 hours and utilize a sliding scale. We will hold the Lantus and metformin until the patient begins an oral diet or tube feeding which ever comes first. 09/08/2018-we will use the sliding scale for now. I will discuss tube feeding wi th the dietitian tomorrow as I do not want him to have any prolonged window without nutrition. (10) Aspiration pneumonia Qualifiers: Aspiration pneumonia type: unspecified Laterality: unspecified laterality Is this a current diagnosis for this admission?: Yes Plan: 09/08/2018-today he has markedly congested breath sounds. There is a high likelihood that he may have aspirated. I have ordered another chest x-ray and started the patient on antibiotics. (11) Dysphagia Qualifiers: Dysphagia type: unspecified Qualified Code(s): R13.10 - Dysphagia, unspecified Is this a current diagnosis for this admission?: Yes Plan: 09/08/2018-the patient has no spontaneous tongue movement. It is too risky to attempt a swallow study at this time. We have placed a nasogastric tube and will administer medications as well as nutrition via the tube until he is appropriate for speech therapy. - Time Time Spent with patient: 25-34 minutes Medications reviewed and adjusted accordingly: Yes - Plan Summary Plan Summary: The patient's CODE STATUS has been changed to DNR. Please see the advance care planning note.
[2018-09-08] MEDS: IPRATROPIUM/ALBUTEROL 0.5-2.5 MG/3 ML AMPUL NEB SCH (20:00)
--- NOTE | 2018-09-08 20:00 | ADVANCED CARE ---
- Diagnosis (1) Hemorrhagic stroke Diagnosis Current: Yes (2) Ischemic stroke Diagnosis Current: Yes (3) Atrial fibrillation Diagnosis Current: Yes (4) Aphasia Diagnosis Current: Yes (5) Hypertension Diagnosis Current: Yes (6) Dehydration Diagnosis Current: Yes (7) Hyperkalemia Diagnosis Current: Yes (8) Acute kidney injury Diagnosis Current: Yes (9) Type 2 diabetes mellitus Diagnosis Current: Yes (10) Aspiration pneumonia Diagnosis Current: Yes (11) Dysphagia Diagnosis Current: Yes Attendance: This discussion was held over the phone with Mr. Vandana Philippe. Mr. Philippe is listed as the emergency contact. The staff at [facility] reports that Mr. Philippe is in fact the patient's only visitor. Resuscitation Status: Do Not Resuscitate Discussion: I updated Mr. Philippe on the patient's current status. We discussed the level o f change that this is from his baseline. The patient was able to converse with Mr. Philippe before this. I explained that he is completely nonverbal at this time. This is a marked change from before. In light of the hemorrhagic stroke and subacute ischemic stroke the patient's prognosis is guarded. With his multiple comorbidities and his frailty it is hard to know the level of recovery that he will achieve. Mr. Philippe did report that the patient would not want to be on a ventilator or would not want to be resuscitated in light of the current events. I reviewed that I would be changing his status to DNR. Mr. Philippe felt that this is appropriate. Per our discussion Mr. Philippe was going to visit the patient later today. Care Planning Goals: In light of the patient's condition and limited prognosis I felt it was appropriate to reach out to his emergency contact. I do not think Mr. Barbour comprehends his condition and the decision making at this point. Mr. Philippe did agreed to change the CODE STATUS to DO NOT RESUSCITATE from full code which clinically is more appropriate. Document(s) Completed: None Time Spent: 25 minutes
[2018-09-09] MEDS: IPRATROPIUM/ALBUTEROL 0.5-2.5 MG/3 ML AMPUL NEB SCH ×3 (01:49→13:51)
[2018-09-09] MEDS: PIPERACILLIN SODIUM/TAZOBACTAM 3.375 GM in NORMAL SALINE 100 ML IV SCH ×4 (04:33→21:54)
[2018-09-09 05:12] LABS: ABSOLUTE EOSINOPHILS # (AUTO) 0.1 10^3/uL (0.0-0.6); ABSOLUTE LYMPHOCYTES (AUTO) 0.9 10^3/uL (0.5-4.7); ABSOLUTE MONOCYTES (AUTO) 0.6 10^3/uL (0.1-1.4); ABSOLUTE NEUT (AUTO) 6.2 10^3/uL (1.7-8.2); BASOPHILS % (AUTO) 0.6 % (0-2); EOSINOPHILS % (AUTO) 0.9 % (0-6); HEMOGLOBIN 11.8 g/dL (13.5-17.0); LYMPHOCYTES % (AUTO) 11.5 % (13-45); MEAN CORPUSCULAR HEMOGLOBIN 30.2 pg (27.0-33.4); MEAN CORPUSCULAR HGB CONC 33.6 g/dL (32.0-36.0); MEAN CORPUSCULAR VOLUME 90 fl (80-97); MONOCYTES % (AUTO) 8.2 % (3-13); PLATELET COUNT 194 10^3/uL (150-450); RED CELL DISTRIBUTION WIDTH 15.5 % (11.5-14.0); SEGMENTED NEUTROPHILS % (AUTO) 78.8 % (42-78); TOTAL CELLS COUNTED % (AUTO) 100 %; WHITE BLOOD COUNT 7.9 10^3/uL (4.0-10.5)
[2018-09-09 05:34] LABS: ANION GAP 15 (5-19); BLOOD UREA NITROGEN 24 mg/dL (7-20); CALCIUM 8.9 mg/dL (8.4-10.2); CARBON DIOXIDE 21 mmol/L (22-30); CHLORIDE 103 mmol/L (98-107); GLUCOSE 122 mg/dL (75-110); POTASSIUM 4.1 mmol/L (3.6-5.0)
[2018-09-09] MEDS: INSULIN LISPRO 100 UNIT/ML 3 ML VIAL SUBCUT SCH ×3 (05:53→17:11)
[2018-09-09] MEDS: ACETAMINOPHEN 650 MG SUPP.RECT PR PRN (08:34)
[2018-09-09] MEDS ORDERED: LOSARTAN POTASSIUM 25 MG TABLET NG SCH (10:00)
[2018-09-09] MEDS ORDERED: ONDANSETRON HCL INJ/PF 4 MG/2 ML SDV IV PRN (11:30)
[2018-09-09] MEDS: VANCOMYCIN HCL 1,500 MG in DEXTROSE 5%-WATER 250 ML IV SCH (11:46)
[2018-09-09] MEDS: MAGNESIUM OXIDE 400 MG TABLET NG SCH ×2 (12:00→17:11)
[2018-09-09] MEDS: DIGOXIN INJ 0.5 MG/2 ML AMPULE IV SCH (12:00)
[2018-09-09] MEDS: PANTOPRAZOLE SODIUM 40 MG VIAL IV SCH (12:00)
[2018-09-09] MEDS: MAGNESIUM SULFATE/D5W 1 GM/100 ML RTUPB IV SCH ×4 (12:21→14:34)
--- NOTE | 2018-09-09 18:00 | PDOC PROGRESS REPORT ---
Subjective Progress Note for:: 09/09/18 Subjective:: Patient was seen on afternoon rounds. He is found resting in bed on room air. He appears to be resting comfortably and not in any acute distress. He is sleeping soundly and does open his eyes to gentle shake, but quickly falls back to sleep. He is nonverbal, does not make eye contact, does not follow commands. ROS is limited secondary to mental status. No family members/friends present at this time. No concerns per nursing. Reason For Visit: ACUTE HEMORRHAGIC STROKE Physical Exam Vital Signs: Temp Pulse Resp BP Pulse Ox 98.7 F 84 17 146/67 H 97 09/09/18 14:50 09/09/18 16:00 09/09/18 16:00 09/09/18 16:00 09/09/18 16:00 Pulse Oximeter Continuous Start: 09/07/18 19:30 Freq: RTQ4 Status: Active Protocol: Document 09/09/18 16:00 HCR (Rec: 09/09/18 16:00 HCR [id number]) Pulse Oximetry Assessment Oxygen Saturation (92-100) 94 Oxygen Delivery Method Room Air Fraction of Inspired Oxygen (FIO2) 21 Equipment Usage Equipment in Use Continuous SpO2 Machine # 1 Intake & Output 09/08/18 09/09/18 09/10/18 06:59 06:59 06:59 Intake Total 1000 1810 300 Output Total 1250 Balance 1000 560 300 Weight 58.967 kg 47 kg 49 kg General appearance: PRESENT: no acute distress, thin, well-developed, other - Frail-appearing Head exam: PRESENT: atraumatic, normocephalic Eye exam: PRESENT: conjunctiva pink, PERRLA. ABSENT: scleral icterus Mouth exam: PRESENT: dry mucosa, tongue midline Teeth exam: PRESENT: poor dentation Respiratory exam: PRESENT: clear to auscultation kaz, symmetrical, unlabored. ABSENT: rales, rhonchi, wheezes Cardiovascular exam: PRESENT: RRR, +S1, +S2. ABSENT: diastolic murmur, rubs, systolic murmur Pulses: PRESENT: normal dorsalis pedis pul Vascular exam: PRESENT: normal capillary refill GI/Abdominal exam: PRESENT: hypoactive bowel sounds, soft. ABSENT: distended, guarding, mass, organolmegaly, rebound, tenderness Rectal exam: PRESENT: deferred Extremities exam: ABSENT: calf tenderness, clubbing, pedal edema Neurological exam: PRESENT: aphasic, other - Arousable to touch; does not make eye contact, or follow commands. He is aphasic. No spontaneous extremity movem ents noted. Skin exam: PRESENT: dry, intact, warm. ABSENT: cyanosis, rash Results Laboratory Results: 09/09/18 04:46 09/09/18 04:46 09/09/18 09/09/18 04:46 04:46 WBC 7.9 RBC 3.90 L Hgb 11.8 L Hct 35.0 L MCV 90 MCH 30.2 MCHC 33.6 RDW 15.5 H Plt Count 194 Seg Neutrophils % 78.8 H Lymphocytes % 11.5 L Monocytes % 8.2 Eosinophils % 0.9 Basophils % 0.6 Absolute Neutrophils 6.2 Absolute Lymphocytes 0.9 Absolute Monocytes 0.6 Absolute Eosinophils 0.1 Absolute Basophils 0.0 Sodium 139.0 Potassium 4.1 Chloride 103 Carbon Dioxide 21 L Anion Gap 15 BUN 24 H Creatinine 1.28 H Est GFR ( Amer) > 60 Est GFR (Non-Af Amer) 54 L Glucose 122 H Calcium 8.9 Magnesium 1.4 L Impressions: Chest X-Ray 09/08/18 00:00 IMPRESSION: Nasogastric tube tip and side port in the stomach. Chronic increased interstitial markings at the lung bases and right apex. No a cute infiltrates Head CT 09/08/18 00:00 IMPRESSION: No change from yesterday. EVIDENCE OF ACUTE STROKE: NO. KUB X-Ray 09/08/18 00:00 IMPRESSION: Nasogastric tube tip and side port in the stomach. Grossly nonobstructive bowel gas pattern Assessment and Plan - Diagnosis (1) Acute kidney injury Is this a current diagnosis for this admission?: Yes Plan: 09/07/2018-secondary to dehydration with elevated BUN, creatinine and potassium. Will administer IV fluids and recheck laboratory studies. The renal function should return to normal with hydration. 09/08/2018-BUN is still elevated but serum creatinine is back to normal. Will adjust IV fluids as noted above. 09/09/2028- BUN still slightly elevated but trending down, creatinine back to normal. We will continue gentle IV fluids. (2) Aphasia Is this a current diagnosis for this admission?: Yes Plan: 09/07/2018-the patient is nonverbal. He did communicate with subtle nodding of his head. At this point I do not feel it is safe to perform a bedside swallow exam. I will have speech therapy see the patient. This evening he was unable to verbally answer any questions although it did appear that he understood what I was saying and was trying to answer. If the patient has dysphagia will need to talk about either nasogastric tube temporarily or PEG tube permanently. He will remain n.p.o. for now. 09/08/2018-the patient did not attempt to verbalize anything today, where has he did yesterday. He appears to have a more dense aphasia. With some improvement I will order speech therapy to work with the patient. 09/09/2018-no changes; remains aphasic. (3) Aspiration pneumonia Qualifiers: Aspiration pneumonia type: unspecified Laterality: unspecified laterality Is this a current diagnosis for this admission?: Yes Plan: 09/08/2018-today he has markedly congested breath sounds. There is a high likelihood that he may have aspirated. I have ordered another chest x-ray and started the patient on antibiotics. 09/09/2018-CBC is normal, T-max 100.7 last 24 hours, 101.9 last 48. Repeat chest x-ray yesterday revealed chronic interstitial markings without acute infiltrates . Lung sounds clear today. We will continue IV Zosyn and vancomycin; consider de-escalation tomorrow when blood cultures will be negative at 72 hours. Continue as needed nebulizer treatments. (4) Atrial fibrillation Qualifiers: Atrial fibrillation type: unspecified Qualified Code(s): I48.91 - Unspecified atrial fibrillation Is this a current diagnosis for this admission?: Yes Plan: 09/07/2018-there is no indication of a history of atrial fibrillation. EKG today reveals atrial fibrillation. The patient will receive digoxin by intravenous to control his rate. Once he is able to take oral medications we will institute beta-reina therapy. No anticoagulation due to the hemorrhagic stroke. 09/08/2018-the patient is in sinus rhythm likely from the digoxin. Continue digoxin and monitor. 09/09/2018-remains in sinus rhythm. Continue digoxin. Patient is not a candidate for anticoagulation as he is here with an acute hemorrhagic CVA. (5) Dehydration Is this a current diagnosis for this admission?: Yes Plan: 09/07/2018-the patient's BUN and creatinine are elevated. Reviewing his old blood work for the last several years his serum creatinine has been normal. We will institute IV fluids, monitor his blood pressure, monitor his intake and output as well as his electrolytes and renal function. 09/08/2018-the patient sounded congested today. I therefore backed off on his IV fluids. Now that he has a nasogastric tube I will also administer free water through the tube. 09/09/2017-improved; BUN trending down, creatinine normal. Continues to have dry mucous membranes. Continue gentle IV fluids and free water flushes. We will need to address chronic hydration and nutritional needs with HC POA; comfort care measures only versus PEG tube placement (6) Dysphagia Qualifiers: Dysphagia type: unspecified Qualified Code(s): R13.10 - Dysphagia, unspecified Is this a current diagnosis for this admission?: Yes Plan: 09/08/2018-the patient has no spontaneous tongue movement. It is too risky to attempt a swallow study at this time. We have placed a nasogastric tube and will administer medications as well as nutrition via the tube until he is appropriate for speech therapy. 09/09/2018-no involuntary movements noted today; overall worsening mental status related to acute CVA. Will need to address with HC POA; comfort measures versus PEG tube placement. (7) Hemorrhagic stroke Is this a current diagnosis for this admission?: Yes Plan: 09/07/2018-CT scan revealed an acute hemorrhagic stroke left lateral basal ganglia approximately 6 to 7 mm in diameter. The patient will be admitted to [facility]. This is not a surgical issue. The patient does not appear to be in any condition to attempt a bedside swallow exam. We will administer intravenous medications for the time being. We will try and keep his systolic blood pressure at approximately 120 mmHg to 130 mmHg. He is on losartan 12.5 mg daily. 09/08/2018-the patient is clearly worse than yesterday. I am going to repeat his CT scan. Because he is not safe to perform a bedside swallow I am going to insert a nasogastric tube to administer medications. 09/09/2018-repeat head CT obtained yesterday is unchanged from day prior; early subacute left basal ganglia infarct with punctate acute hemorrhage in the left inferior basal ganglia. (8) Hyperkalemia Is this a current diagnosis for this admission?: Yes Plan: 09/07/2018-secondary to the dehydration and acute kidney injury. Will administer IV fluids and recheck electrolytes. 09/08/2018-resolved with IV fluids 09/09/2018-resolved; continue to monitor with daily chemistries. Correct as indicated. (9) Hypertension Qualifiers: Hypertension type: essential hypertension Qualified Code(s): I10 - Essential (primary) hypertension Is this a current diagnosis for this admission?: Yes Plan: 09/07/2018-the patient has a history of hypertension. He is on losartan 12.5 mg daily. We will use IV enalapril at this time as he is n.p.o. 09/08/2018-I have placed the nasogastric tube. I have started the losartan through the tube and have stopped his IV enalapril. 09/09/2018-acceptable blood pressures. Continue losartan via NG tube. IV Vasotec as needed for blood pressure control (10) Ischemic stroke Is this a current diagnosis for this admission?: Yes Plan: 09/07/2018-also noted on the CT scan was a subacute nonhemorrhagic infarct in the left basal ganglia/deep periventricular white matter. Because of the hemorrhagi c stroke I will not put the patient on aspirin at this time. We will try and control his blood pressure. He is not a surgical candidate for any intervention including intervention of the carotid artery. We will continue his statin therapy when he is able to swallow safely, return to his antihypertensives and after several weeks start a baby aspirin daily. 09/08/2018-at this point we will hold off on aspirin therapy. I have pushed the films to [facility]. I will consult by telephone with neurology to see if they have any other treatment suggestions. 09/09/2018-unchanged from yesterday; holding aspirin therapy secondary to hemorrhagic CVA. Patient now with NG tube in place, will start high-dose statin therapy. (11) Type 2 diabetes mellitus Qualifiers: Diabetes mellitus group home insulin use: with long term care pharmacist use Is this a current diagnosis for this admission?: Yes Plan: 09/07/2018-the patient is on metformin and Lantus. We will check fingersticks every 6 hours and utilize a sliding scale. We will hold the Lantus and metformin until the patient begins an oral diet or tube feeding which ever comes first. 09/08/2018-we will use the sliding scale for now. I will discuss tube feeding with the dietitian tomorrow as I do not want him to have any prolonged window without nutrition. 09/09/2018-registered dietitian is consulted. Continue Accu-Cheks every 6 hours with insulin and hypoglycemic protocols in place. - Time Time Spent with patient: 35 or more minutes Medications reviewed and adjusted accordingly: Yes Anticipated discharge: Hospice - Versus long-term care Within: Other - Pending discussion with surrogate decision-maker with regard to disposition
--- NOTE | 2018-09-09 18:00 | Progress Note Acknowledgement ---
Progress Note Acknowledgement Progess Note Acknowledgement: I, the undersigned member of the medical staff with appropriate privileges and with supervisory authority over America Butler, a [facility] practice allied health professional, acknowledge that I have reviewed the progress notes entered on this patient, and in my professional judgment believe that the assessment made and/or any care evidenced was appropriate
[2018-09-09] MEDS: ATORVASTATIN CALCIUM 80 MG TABLET PO SCH (22:20)
[2018-09-09] MEDS: VANCOMYCIN HCL 500 MG in DEXTROSE 5%-WATER 100 ML IV SCH (22:25)
[2018-09-10] MEDS: INSULIN LISPRO 100 UNIT/ML 3 ML VIAL SUBCUT SCH ×4 (01:03→17:49)
[2018-09-10] MEDS: PIPERACILLIN SODIUM/TAZOBACTAM 3.375 GM in NORMAL SALINE 100 ML IV SCH ×4 (04:00→21:58)
[2018-09-10 04:20] LABS: HEMATOCRIT 35.5 % (37.9-51.0); HEMOGLOBIN 11.9 g/dL (13.5-17.0); MEAN CORPUSCULAR HEMOGLOBIN 30.1 pg (27.0-33.4); MEAN CORPUSCULAR HGB CONC 33.6 g/dL (32.0-36.0); MEAN CORPUSCULAR VOLUME 90 fl (80-97); PLATELET COUNT 193 10^3/uL (150-450); RED BLOOD COUNT 3.97 10^6/uL (4.35-5.55); RED CELL DISTRIBUTION WIDTH 15.1 % (11.5-14.0); WHITE BLOOD COUNT 7.5 10^3/uL (4.0-10.5)
[2018-09-10 04:42] LABS: ANION GAP 11 (5-19); BLOOD UREA NITROGEN 22 mg/dL (7-20); CALCIUM 8.8 mg/dL (8.4-10.2); CARBON DIOXIDE 23 mmol/L (22-30); CHLORIDE 104 mmol/L (98-107); GLUCOSE 110 mg/dL (75-110); POTASSIUM 3.8 mmol/L (3.6-5.0)
--- NOTE | 2018-09-10 10:08 | PDOC PROGRESS REPORT ---
Subjective Progress Note for:: 09/10/18 Subjective:: It was very good to see the patient being able to communicate verbally with me. He did not remember me admitting to the hospital nor seeing him the second day. He has a very congested cough productive of pale yellow mucus. Reason For Visit: ACUTE HEMORRHAGIC STROKE Physical Exam Vital Signs: Temp Pulse Resp BP Pulse Ox 99.2 F 79 20 141/58 H 97 09/10/18 03:47 09/10/18 04:00 09/10/18 04:00 09/10/18 04:00 09/10/18 04:03 Pulse Oximeter Continuous Start: 09/07/18 19:30 Freq: RTQ4 Status: Active Protocol: Document 09/10/18 04:03 GEOVANNA (Rec: 09/10/18 04:04 GEOVANNA [id number]) Pulse Oximetry Assessment Oxygen Saturation (92-100) 97 Oxygen Delivery Method Room Air Fraction of Inspired Oxygen (FIO2) 21 Equipment Usage Equipment in Use Continuous Pulse Oximeter 24 Hour Charge Charge Now Continuous SpO2 Machine # 1 Intake & Output 09/09/18 09/10/18 09/11/18 06:59 06:59 06:59 Intake Total 1810 700 Output Total 1250 450 Balance 560 250 Weight 47 kg 51.2 kg General appearance: PRESENT: cooperative, mild distress, thin Head exam: PRESENT: atraumatic, normocephalic Eye exam: PRESENT: conjunctiva pale. ABSENT: scleral icterus Mouth exam: PRESENT: dry mucosa, tongue midline Teeth exam: PRESENT: edentulous Respiratory exam: PRESENT: rhonchi - course rhonchi left > right, symmetrical. ABSENT: wheezes Cardiovascular exam: PRESENT: RRR, +S1, +S2, other - Difficult to auscultate secondary to rhonchi GI/Abdominal exam: PRESENT: diminished bowel sounds, soft. ABSENT: distended, tenderness Rectal exam: PRESENT: deferred Extremities exam: PRESENT: other - marked changes from RA hands. ABSENT: pedal edema Neurological exam: PRESENT: alert, awake, oriented to person, oriented to place. ABSENT: oriented to situation Psychiatric exam: PRESENT: flat affect. ABSENT: agitated Focused psych exam: ABSENT: delusional, restlessness Results Laboratory Results: 09/10/18 04:07 09/10/18 04:07 09/10/18 09/10/18 04:07 04:07 WBC 7.5 RBC 3.97 L Hgb 11.9 L Hct 35.5 L MCV 90 MCH 30.1 MCHC 33.6 RDW 15.1 H Plt Count 193 Sodium 137.6 Potassium 3.8 Chloride 104 Carbon Dioxide 23 Anion Gap 11 BUN 22 H Creatinine 1.15 Est GFR ( Amer) > 60 Est GFR (Non-Af Amer) > 60 Glucose 110 Calcium 8.8 Impressions: Chest X-Ray 09/08/18 00:00 IMPRESSION: Nasogastric tube tip and side port in the stomach. Chronic increased interstitial markings at the lung bases and right apex. No acute infiltrates Head CT 09/08/18 00:00 IMPRESSION: No change from yesterday. EVIDENCE OF ACUTE STROKE: NO. KUB X-Ray 09/08/18 00:00 IMPRESSION: Nasogastric tube tip and side port in the stomach. Grossly nonobstructive bowel gas pattern Assessment and Plan - Diagnosis (1) Hemorrhagic stroke Is this a current diagnosis for this admission?: Yes Plan: 09/10/2018-the patient had a small acute hemorrhagic stroke with a subacute ischemic infarct adjacent. Unfortunately I am not able to give him antiplatelet therapy without risk of worsening the hemorrhagic bleed. Despite this he is improving slowly. Now that he is more awake I will have speech, physical and occupational therapies see the patient. He was at an assisted living facility and reports that he was walking with a walker. I did speak with his emergency contact and he states that the patient was eating and carrying on conversations prior to this episode as well. He will likely need at least short-term placement and then based on his recovery, possibly long-term placement. We have initiated tube feeds for nutrition until he has a safe swallow. (2) Ischemic stroke Is this a current diagnosis for this admission?: Yes Plan: 09/10/2018-as noted above we cannot initiate antiplatelet therapy yet. I believe a reasonable window would be 2 weeks. Plan for stroke as outlined above. (3) Atrial fibrillation Qualifiers: Atrial fibrillation type: unspecified Qualified Code(s): I48.91 - Unspecified atrial fibrillation Is this a current diagnosis for this admission?: Yes Plan: 09/10/2018-at the time of admission he was in atrial fibrillation. He is on digoxin and has converted to normal sinus rhythm. Anticoagulation is contraindicated because of his acute hemorrhagic stroke. Because his blood pressure is increasing at this time I will actually stop the digoxin and change to metoprolol. If he stays in sinus rhythm anticoagulation will not be an issue. (4) Aphasia Is this a current diagnosis for this admission?: Yes Plan: 09/10/2018-he in fact is verbalizing. It is easily understandable. He still requires speech and swallowing therapy. (5) Hypertension Qualifiers: Hypertension type: essential hypertension Qualified Code(s): I10 - Essential (primary) hypertension Is this a current diagnosis for this admission?: Yes Plan: 09/10/2018-his blood pressures are now starting to increase. I will increase his losartan to 25 mg daily and I will add metoprolol tartrate 12.5 mg twice daily. When he regains his swallow I will change this to metoprolol succinate. We will continue to monitor his blood pressures and adjust medications to try and keep his systolic pressure at approximately 120. (6) Dehydration Is this a current diagnosis for this admission?: Yes Plan: 09/10/2018-we will continue maintenance saline and increased free water through the nasogastric tube. Serum creatinine is normal but the BUN is still slightly elevated. (7) Hyperkalemia Is this a current diagnosis for this admission?: Yes Plan: 09/10/2018-with IV fluids and improved hydration the potassium is back to normal. Continue to monitor. (8) Acute kidney injury Is this a current diagnosis for this admission?: Yes Plan: 09/10/2018-secondary to dehydration. Resolved. (9) Type 2 diabetes mellitus Qualifiers: Diabetes mellitus snf insulin use: with snf use Is this a current diagnosis for this admission?: Yes Plan: 09/10/2018-he is currently on sliding scale insulin. We are initiating tube feeds. We will monitor his Accu-Cheks. He will likely need to resume his metformin at some point. (10) Aspiration pneumonia Qualifiers: Aspiration pneumonia type: unspecified Laterality: unspecified laterality Is this a current diagnosis for this admission?: Yes Plan: 09/10/2018-he has rhonchi diffusely. He is coughing up pale yellow mucus. We will continue his antibiotics and repeat his chest x-ray. I have also ordered aspiration precautions. (11) Dysphagia Qualifiers: Dysphagia type: unspecified Qualified Code(s): R13.10 - Dysphagia, unspecified Is this a current diagnosis for this admission?: Yes Plan: 09/10/2018-patient has nasogastric tube at this time. Speech therapy has been consulted. He was too compromised to see initially but now he is much more awake and will be evaluated. - Time Time Spent with patient: 25-34 minutes Medications reviewed and adjusted accordingly: Yes
[2018-09-10] MEDS: PANTOPRAZOLE SODIUM 40 MG VIAL IV SCH (11:02)
[2018-09-10] MEDS: NORMAL SALINE 1000 ML 1,000 ML IV PRN (11:02)
[2018-09-10] MEDS: DIGOXIN INJ 0.5 MG/2 ML AMPULE IV SCH (11:02)
[2018-09-10] MEDS: MAGNESIUM OXIDE 400 MG TABLET NG SCH ×2 (11:02→17:04)
[2018-09-10] MEDS: LOSARTAN POTASSIUM 25 MG TABLET NG SCH (11:19)
[2018-09-10] MEDS: METOPROLOL TARTRATE 25 MG TABLET NG SCH ×2 (11:19→21:59)
[2018-09-10] MEDS: IPRATROPIUM/ALBUTEROL 0.5-2.5 MG/3 ML AMPUL NEB SCH ×2 (15:48→23:45)
[2018-09-10] MEDS: ATORVASTATIN CALCIUM 80 MG TABLET PO SCH (22:00)
[2018-09-10] MEDS: VANCOMYCIN HCL 500 MG in DEXTROSE 5%-WATER 100 ML IV SCH (22:00)
[2018-09-11] MEDS: INSULIN LISPRO 100 UNIT/ML 3 ML VIAL SUBCUT SCH ×4 (01:17→17:59)
[2018-09-11] MEDS: PIPERACILLIN SODIUM/TAZOBACTAM 3.375 GM in NORMAL SALINE 100 ML IV SCH ×4 (03:03→21:50)
[2018-09-11 04:47] LABS: ABSOLUTE EOSINOPHILS # (AUTO) 0.6 10^3/uL (0.0-0.6); ABSOLUTE LYMPHOCYTES (AUTO) 0.9 10^3/uL (0.5-4.7); ABSOLUTE MONOCYTES (AUTO) 0.7 10^3/uL (0.1-1.4); ABSOLUTE NEUT (AUTO) 5.3 10^3/uL (1.7-8.2); BASOPHILS % (AUTO) 0.5 % (0-2); EOSINOPHILS % (AUTO) 8.1 % (0-6); HEMATOCRIT 32.4 % (37.9-51.0); HEMOGLOBIN 10.9 g/dL (13.5-17.0); LYMPHOCYTES % (AUTO) 12.5 % (13-45); MEAN CORPUSCULAR HEMOGLOBIN 30.1 pg (27.0-33.4); MEAN CORPUSCULAR HGB CONC 33.5 g/dL (32.0-36.0); MEAN CORPUSCULAR VOLUME 90 fl (80-97); MONOCYTES % (AUTO) 8.7 % (3-13); PLATELET COUNT 183 10^3/uL (150-450); RED BLOOD COUNT 3.61 10^6/uL (4.35-5.55); RED CELL DISTRIBUTION WIDTH 15.8 % (11.5-14.0); SEGMENTED NEUTROPHILS % (AUTO) 70.2 % (42-78); TOTAL CELLS COUNTED % (AUTO) 100 %; WHITE BLOOD COUNT 7.5 10^3/uL (4.0-10.5)
[2018-09-11 05:15] LABS: ANION GAP 8 (5-19); BLOOD UREA NITROGEN 21 mg/dL (7-20); CALCIUM 8.2 mg/dL (8.4-10.2); CARBON DIOXIDE 24 mmol/L (22-30); CHLORIDE 106 mmol/L (98-107); GLUCOSE 127 mg/dL (75-110); PHOSPHORUS 2.8 mg/dL (2.5-4.5); POTASSIUM 3.3 mmol/L (3.6-5.0)
[2018-09-11] MEDS: IPRATROPIUM/ALBUTEROL 0.5-2.5 MG/3 ML AMPUL NEB SCH ×2 (08:06→16:30)
--- NOTE | 2018-09-11 08:36 | RADIOLOGY REPORT (SQ) ---
EXAM DESCRIPTION: CHEST SINGLE VIEW COMPLETED DATE/TIME: 09/11/2018 7:58 am REASON FOR STUDY: Aspiration COMPARISON: 09/08/2018 and 08/04/2015. . EXAM PARAMETERS: NUMBER OF VIEWS: One view. TECHNIQUE: Single frontal radiographic view of the chest acquired. RADIATION DOSE: NA LIMITATIONS: None. FINDINGS: LUNGS AND PLEURA: Chronic scarring particularly in the right apex. No lobar infiltrates, masses or pneumothorax. No pleural effusion. MEDIASTINUM AND HILAR STRUCTURES: No masses. Contour normal. HEART AND VASCULAR STRUCTURES: Heart normal in size. Normal vasculature. BONES: No acute findings. Chronic changes in the spine and shoulders. HARDWARE: Stable nasogastric tube. OTHER: No other significant finding. IMPRESSION: STABLE APPEARANCE. NO ACUTE RADIOGRAPHIC FINDING IN THE CHEST. TECHNICAL DOCUMENTATION: JOB ID: [id number] [employer]- All Rights Reserved Reading location - IP/workstation name: [email or web address]
[2018-09-11] MEDS: NORMAL SALINE 1000 ML 1,000 ML IV PRN (10:07)
[2018-09-11] MEDS: MAGNESIUM OXIDE 400 MG TABLET NG SCH ×2 (10:07→17:59)
[2018-09-11] MEDS: LOSARTAN POTASSIUM 25 MG TABLET NG SCH (10:07)
[2018-09-11] MEDS: METOPROLOL TARTRATE 25 MG TABLET NG SCH ×2 (10:07→21:52)
[2018-09-11] MEDS: DIGOXIN INJ 0.5 MG/2 ML AMPULE IV SCH (10:12)
--- NOTE | 2018-09-11 10:24 | PDOC PROGRESS REPORT ---
Subjective Progress Note for:: 09/11/18 Subjective:: My urine is sleeping but awakens easily. He is able to answer questions verbally. He has increased spontaneous movements. He still sounds congested. Reason For Visit: ACUTE HEMORRHAGIC STROKE Physical Exam Vital Signs: Temp Pulse Resp BP Pulse Ox 98.2 F 81 20 160/75 H 94 09/11/18 03:17 09/11/18 08:08 09/11/18 08:08 09/11/18 04:00 09/11/18 08:08 Pulse Oximeter Continuous Start: 09/07/18 19:30 Freq: RTQ4 Status: Active Protocol: Document 09/11/18 08:08 [facility] (Rec: 09/11/18 08:10 [facility] [id number]) Pulse Oximetry Assessment Oxygen Saturation (92-100) 94 Oxygen Delivery Method Room Air Fraction of Inspired Oxygen (FIO2) 21 Equipment Usage Equipment in Use Continuous SpO2 Machine # N1 Intake & Output 09/10/18 09/11/18 09/12/18 06:59 06:59 06:59 Intake Total 0392 379 9935 Output Total 450 500 Balance 2734 076 0752 Weight 51.2 kg 51.6 kg General appearance: PRESENT: cooperative, mild distress, thin, well-developed Head exam: PRESENT: atraumatic, normocephalic Eye exam: PRESENT: conjunctiva pale. ABSENT: scleral icterus Ear exam: PRESENT: normal external ear exam Mouth exam: PRESENT: dry mucosa, tongue midline Throat exam: PRESENT: other - Nasogastric tube in place Respiratory exam: PRESENT: rales - Right base, rhonchi - On the left, sym metrical, other - Still has congested cough. ABSENT: tachypnea, wheezes Cardiovascular exam: PRESENT: RRR, +S1, +S2, other - Difficult to auscultate today due to congested breath sounds and bowel sounds GI/Abdominal exam: PRESENT: hyperactive bowel sounds, soft. ABSENT: tenderness Rectal exam: PRESENT: deferred Gentrourinary exam: PRESENT: indwelling catheter Extremities exam: ABSENT: pedal edema Musculoskeletal exam: PRESENT: deformity - Markedly deformed hands from rheumatoid arthritis Neurological exam: PRESENT: alert, awake, oriented to person, oriented to place, oriented to situation Psychiatric exam: PRESENT: flat affect. ABSENT: agitated, anxious Focused psych exam: ABSENT: delusional, restlessness Results Laboratory Results: 09/11/18 04:03 09/11/18 04:03 09/11/18 09/11/18 04:03 04:03 WBC 7.5 RBC 3.61 L Hgb 10.9 L Hct 32.4 L MCV 90 MCH 30.1 MCHC 33.5 RDW 15.8 H Plt Count 183 Seg Neutrophils % 70.2 Lymphocytes % 12.5 L Monocytes % 8.7 Eosinophils % 8.1 H Basophils % 0.5 Absolute Neutrophils 5.3 Absolute Lymphocytes 0.9 Absolute Monocytes 0.7 Absolute Eosinophils 0.6 Absolute Basophils 0.0 Sodium 138.0 Potassium 3.3 L Chloride 106 Carbon Dioxide 24 Anion Gap 8 BUN 21 H Creatinine 1.10 Est GFR ( Amer) > 60 Est GFR (Non-Af Amer) > 60 Glucose 127 H Calcium 8.2 L Phosphorus 2.8 Magnesium 1.9 Impressions: Head CT 09/08/18 00:00 IMPRESSION: No change from yesterday. EVIDENCE OF ACUTE STROKE: NO. KUB X-Ray 09/08/18 00:00 IMPRESSION: Nasogastric tube tip and side port in the stomach. Grossly nonobstructive bowel gas pattern Chest X-Ray 09/11/18 06:00 IMPRESSION: STABLE APPEARANCE. NO ACUTE RADIOGRAPHIC FINDING IN THE CHEST. Assessment and Plan - Diagnosis (1) Hemorrhagic stroke Is this a current diagnosis for this admission?: Yes Plan: 09/10/2018-the patient had a small acute hemorrhagic stroke with a subacute ischemic infarct adjacent. Unfortunately I am not able to give him antiplatelet therapy without risk of worsening the hemorrhagic bleed. Despite this he is improving slowly. Now that he is more awake I will have speech, physical and occupational therapies see the patient. He was at an assisted living facility and reports that he was walking with a walker. I did speak with his emergency contact and he states that the patient was eating and carrying on conversations prior to this episode as well. He will likely need at least short-term placement and then based on his recovery, possibly long-term placement. We have initiated tube feeds for nutrition until he has a safe swallow. 09/11/2018-continues to improve. We will still hold off on aspirin therapy due to the small hemorrhagic component. Physical, occupational and speech therapy to work with the patient. (2) Ischemic stroke Is this a current diagnosis for this admission?: Yes Plan: 09/10/2018-as noted above we cannot initiate antiplatelet therapy yet. I believe a reasonable window would be 2 weeks. Plan for stroke as outlined above. 09/11/2018-see #1 above (3) Atrial fibrillation Qualifiers: Atrial fibrillation type: unspecified Qualified Code(s): I48.91 - Unspecified atrial fibrillation Is this a current diagnosis for this admission?: Yes Plan: 09/10/2018-at the time of admission he was in atrial fibrillation. He is on digoxin and has converted to normal sinus rhythm. Anticoagulation is contraindicated because of his acute hemorrhagic stroke. Because his blood pressure is increasing at this time I will actually stop the digoxin and change to metoprolol. If he stays in sinus rhythm anticoagulation will not be an issue. 09/11/2018-transient atrial fibrillation on admission. Now in sinus rhythm. I have added metoprolol to the digoxin. (4) Aphasia Is this a current diagnosis for this admission?: Yes Plan: 09/10/2018-he in fact is verbalizing. It is easily understandable. He still requires speech and swallowing therapy. 09/11/2018-aphasia is resolving. Speech therapy is ordered. (5) Hypertension Qualifiers: Hypertension type: essential hypertension Qualified Code(s): I10 - Essential (primary) hypertension Is this a current diagnosis for this admission?: Yes Plan: 09/10/2018-his blood pressures are now starting to increase. I will increase his losartan to 25 mg daily and I will add metoprolol tartrate 12.5 mg twice daily. When he regains his swallow I will change this to metoprolol succinate. We will continue to monitor his blood pressures and adjust medications to try and keep his systolic pressure at approximately 120. 09/11/2018-the patient was only on 12.5 mg of losartan. I have increased losartan and added metoprolol. Blood pressures are slowly improving. (6) Dehydration Is this a current diagnosis for this admission?: Yes Plan: 09/10/2018-we will continue maintenance saline and increased free water through the nasogastric tube. Serum creatinine is normal but the BUN is still slightly elevated. 09/11/2018-we will gradually decrease IV fluid and slowly increase free water through the nasogastric tube until the patient is eating. Continue to monitor labs. (7) Hyperkalemia Is this a current diagnosis for this admission?: Yes Plan: 09/10/2018-with IV fluids and improved hydration the potassium is back to normal. Continue to monitor. 09/11/2018-serum potassium is now low. Will begin potassium supplementation. (8) Acute kidney injury Is this a current diagnosis for this admission?: Yes Plan: 09/10/2018-secondary to dehydration. Resolved. 09/11/2018-resolved (9) Type 2 diabetes mellitus Qualifiers: Diabetes mellitus termite control representative insulin use: with fci use Is this a current diagnosis for this admission?: Yes Plan: 09/10/2018-he is currently on sliding scale insulin. We are initiating tube feed s. We will monitor his Accu-Cheks. He will likely need to resume his metformin at some point. 09/11/2018-continue current regimen. Fingersticks are well controlled. (10) Aspiration pneumonia Qualifiers: Aspiration pneumonia type: unspecified Laterality: unspecified laterality Is this a current diagnosis for this admission?: Yes Plan: 09/10/2018-he has rhonchi diffusely. He is coughing up pale yellow mucus. We will continue his antibiotics and repeat his chest x-ray. I have also ordered aspiration precautions. 09/11/2018-the patient still sounds quite coarse. I will continue the antibiotics at this time. His risk of aspiration was very high at the time of admission. Still awaiting speech therapy for a swallow eval. (11) Dysphagia Qualifiers: Dysphagia type: unspecified Qualified Code(s): R13.10 - Dysphagia, unspecified Is this a current diagnosis for this admission?: Yes Plan: 09/10/2018-patient has nasogastric tube at this time. Speech therapy has been consulted. He was too compromised to see initially but now he is much more awake and will be evaluated. 09/11/2018-the patient is now awake and alert enough to be assessed by speech therapy. Nursing will perform their usual bedside swallow eval. I can make some changes based on that evaluation but I still would like speech therapy to see the patient. - Time Time Spent with patient: 15-24 minutes Medications reviewed and adjusted accordingly: Yes
[2018-09-11] MEDS: PANTOPRAZOLE SODIUM 40 MG PACKET.DR NG SCH (12:32)
[2018-09-11] MEDS: ATORVASTATIN CALCIUM 80 MG TABLET PO SCH (21:52)
[2018-09-11 21:55] LABS: VANCOMYCIN,TROUGH 10.6 ug/mL (5.0-20.0)
[2018-09-11] MEDS: VANCOMYCIN HCL 500 MG in DEXTROSE 5%-WATER 100 ML IV SCH (21:55)
[2018-09-12] MEDS: IPRATROPIUM/ALBUTEROL 0.5-2.5 MG/3 ML AMPUL NEB SCH ×3 (00:03→16:11)
[2018-09-12] MEDS: INSULIN LISPRO 100 UNIT/ML 3 ML VIAL SUBCUT SCH ×4 (00:23→18:42)
[2018-09-12] MEDS: PIPERACILLIN SODIUM/TAZOBACTAM 3.375 GM in NORMAL SALINE 100 ML IV SCH ×4 (03:34→21:35)
[2018-09-12] MEDS: PANTOPRAZOLE SODIUM 40 MG PACKET.DR NG SCH (06:06)
[2018-09-12 06:25] LABS: ABSOLUTE EOSINOPHILS # (AUTO) 0.8 10^3/uL (0.0-0.6); ABSOLUTE MONOCYTES (AUTO) 0.6 10^3/uL (0.1-1.4); ABSOLUTE NEUT (AUTO) 4.4 10^3/uL (1.7-8.2); BASOPHILS % (AUTO) 0.6 % (0-2); EOSINOPHILS % (AUTO) 12.2 % (0-6); HEMATOCRIT 30.5 % (37.9-51.0); HEMOGLOBIN 10.3 g/dL (13.5-17.0); LYMPHOCYTES % (AUTO) 14.8 % (13-45); MEAN CORPUSCULAR HEMOGLOBIN 30.4 pg (27.0-33.4); MEAN CORPUSCULAR HGB CONC 33.7 g/dL (32.0-36.0); MEAN CORPUSCULAR VOLUME 90 fl (80-97); MONOCYTES % (AUTO) 8.6 % (3-13); PLATELET COUNT 179 10^3/uL (150-450); RED BLOOD COUNT 3.38 10^6/uL (4.35-5.55); RED CELL DISTRIBUTION WIDTH 15.4 % (11.5-14.0); SEGMENTED NEUTROPHILS % (AUTO) 63.8 % (42-78); TOTAL CELLS COUNTED % (AUTO) 100 %; WHITE BLOOD COUNT 6.8 10^3/uL (4.0-10.5)
[2018-09-12 06:52] LABS: ANION GAP 7 (5-19); BLOOD UREA NITROGEN 16 mg/dL (7-20); CALCIUM 8.2 mg/dL (8.4-10.2); CARBON DIOXIDE 23 mmol/L (22-30); CHLORIDE 108 mmol/L (98-107); GLUCOSE 138 mg/dL (75-110); POTASSIUM 3.4 mmol/L (3.6-5.0)
[2018-09-12] MEDS: LOSARTAN POTASSIUM 25 MG TABLET NG SCH (10:22)
[2018-09-12] MEDS: METOPROLOL TARTRATE 25 MG TABLET NG SCH ×2 (10:22→21:37)
[2018-09-12] MEDS: MAGNESIUM OXIDE 400 MG TABLET NG SCH ×2 (10:22→18:42)
[2018-09-12] MEDS: DIGOXIN INJ 0.5 MG/2 ML AMPULE IV SCH (10:23)
[2018-09-12] MEDS: POTASSIUM CHLORIDE 20 MEQ PACKET NG SCH (14:54)
[2018-09-12] MEDS: ATORVASTATIN CALCIUM 80 MG TABLET PO SCH (21:37)
[2018-09-12] MEDS: VANCOMYCIN HCL 750 MG in DEXTROSE 5%-WATER 250 ML IV SCH (21:44)
--- NOTE | 2018-09-12 21:50 | PDOC PROGRESS REPORT ---
Subjective Progress Note for:: 09/12/18 Subjective:: Once again the patient is in the bed. Nasogastric tube in place. He tends to lean to the right. He still has a very flat affect. Reason For Visit: ACUTE HEMORRHAGIC STROKE Physical Exam Vital Signs: Temp Pulse Resp BP Pulse Ox 99.5 F 75 16 111/55 L 100 09/12/18 08:42 09/12/18 19:00 09/12/18 16:11 09/12/18 08:42 09/12/18 16:11 Pulse Oximeter Continuous Start: 09/07/18 19:30 Freq: RTQ4 Status: Active Protocol: Document 09/12/18 16:11 [facility] (Rec: 09/12/18 17:22 [facility] [id number]) Pulse Oximetry Assessment Oxygen Saturation (92-100) 10 Oxygen Delivery Method Room Air Fraction of Inspired Oxygen (FIO2) 21 Equipment Usage Equipment in Use Continuous SpO2 Machine # 1 Intake & Output 09/11/18 09/12/18 09/13/18 06:59 06:59 06:59 Intake Total 1062 2943 872 Output Total 500 540 225 Balance 562 2403 647 Weight 51.6 kg 43.7 kg General appearance: PRESENT: cooperative, mild distress, thin, well-developed Head exam: PRESENT: atraumatic, normocephalic Ear exam: PRESENT: normal external ear exam Mouth exam: PRESENT: dry mucosa, tongue midline, other - Nasogastric tube in place Respiratory exam: PRESENT: clear to auscultation kaz, symmetrical, unlabored. ABSENT: rales, rhonchi, tachypnea, wheezes Cardiovascular exam: PRESENT: RRR, +S1, +S2 GI/Abdominal exam: PRESENT: normal bowel sounds, soft. ABSENT: distended, guarding, tenderness Rectal exam: PRESENT: deferred Gentrourinary exam: PRESENT: indwelling catheter Extremities exam: PRESENT: joint swelling - See below. ABSENT: pedal edema Musculoskeletal exam: PRESENT: deformity - Extensive debilitating changes from rheumatoid arthritis both hands. ABSENT: ambulatory Neurological exam: PRESENT: alert, awake, oriented to person, oriented to place, oriented to situation Psychiatric exam: PRESENT: flat affect. ABSENT: agitated, anxious Focused psych exam: ABSENT: delusional, restlessness Results Laboratory Results: 09/12/18 05:59 09/12/18 05:59 09/12/18 09/12/18 05:59 05:59 WBC 6.8 RBC 3.38 L Hgb 10.3 L Hct 30.5 L MCV 90 MCH 30.4 MCHC 33.7 RDW 15.4 H Plt Count 179 Seg Neutrophils % 63.8 Lymphocytes % 14.8 Monocytes % 8.6 Eosinophils % 12.2 H Basophils % 0.6 Absolute Neutrophils 4.4 Absolute Lymphocytes 1.0 Absolute Monocytes 0.6 Absolute Eosinophils 0.8 H Absolute Basophils 0.0 Sodium 137.9 Potassium 3.4 L Chloride 108 H Carbon Dioxide 23 Anion Gap 7 BUN 16 Creatinine 1.07 Est GFR ( Amer) > 60 Est GFR (Non-Af Amer) > 60 Glucose 138 H Calcium 8.2 L Magnesium 1.9 09/07/18 16:03 Blood Blood Culture - Final NO GROWTH IN 5 DAYS 09/07/18 13:36 Blood Blood Culture - Final NO GROWTH IN 5 DAYS Impressions: Head CT 09/08/18 00:00 IMPRESSION: No change from yesterday. EVIDENCE OF ACUTE STROKE: NO. KUB X-Ray 09/08/18 00:00 IMPRESSION: Nasogastric tube tip and side port in the stomach. Grossly nonobstructive bowel gas pattern Chest X-Ray 09/11/18 06:00 IMPRESSION: STABLE APPEARANCE. NO ACUTE RADIOGRAPHIC FINDING IN THE CHEST. Assessment and Plan - Diagnosis (1) Hemorrhagic stroke Is this a current diagnosis for this admission?: Yes Plan: 09/10/2018-the patient had a small acute hemorrhagic stroke with a subacute ischemic infarct adjacent. Unfortunately I am not able to give him antiplatelet therapy without risk of worsening the hemorrhagic bleed. Despite this he is improving slowly. Now that he is more awake I will have speech, physical and occupational therapies see the patient. He was at an assisted living facility and reports that he was walking with a walker. I did speak with his emergency contact and he states that the patient was eating and carrying on conversations prior to this episode as well. He will likely need at least short-term placement and then based on his recovery, possibly long-term placement. We have initiated tube feeds for nutrition until he has a safe swallow. 09/11/2018-continues to improve. We will still hold off on aspirin therapy due to the small hemorrhagic component. Physical, occupational and speech therapy to work with the patient. 09/12/2018-from a cognitive standpoint the patient does interact and appears to understand all of our discussions. His swallow was still compromised and we are still using the nasogastric tube. We await speech therapies evaluation. No as pirin therapy at this time. (2) Ischemic stroke Is this a current diagnosis for this admission?: Yes Plan: 09/10/2018-as noted above we cannot initiate antiplatelet therapy yet. I believe a reasonable window would be 2 weeks. Plan for stroke as outlined above. 09/11/2018-see #1 above 09/12/2018-as noted above there will be no aspirin therapy because of the hemorrhagic component. We await physical, occupational and speech therapy input. (3) Atrial fibrillation Qualifiers: Atrial fibrillation type: unspecified Qualified Code(s): I48.91 - Unspecified atrial fibrillation Is this a current diagnosis for this admission?: Yes Plan: 09/10/2018-at the time of admission he was in atrial fibrillation. He is on digoxin and has converted to normal sinus rhythm. Anticoagulation is contraindicated because of his acute hemorrhagic stroke. Because his blood pressure is increasing at this time I will actually stop the digoxin and change to metoprolol. If he stays in sinus rhythm anticoagulation will not be an issue. 09/11/2018-transient atrial fibrillation on admission. Now in sinus rhythm. I have added metoprolol to the digoxin. 09/12/2018-he now remains in sinus rhythm. (4) Aphasia Is this a current diagnosis for this admission?: Yes Plan: 09/10/2018-he in fact is verbalizing. It is easily understandable. He still requires speech and swallowing therapy. 09/11/2018-aphasia is resolving. Speech therapy is ordered. 09/12/2018-aphasia has resolved. There appears to be some dysarthria but his low volume voice could certainly be due to weakness and I believe partly due to depression and frustration with this debilitating stroke (5) Hypertension Qualifiers: Hypertension type: essential hypertension Qualified Code(s): I10 - Essential (primary) hypertension Is this a current diagnosis for this admission?: Yes Plan: 09/10/2018-his blood pressures are now starting to increase. I will increase his losartan to 25 mg daily and I will add metoprolol tartrate 12.5 mg twice daily. When he regains his swallow I will change this to metoprolol succinate. We will continue to monitor his blood pressures and adjust medications to try and keep his systolic pressure at approximately 120. 09/11/2018-the patient was only on 12.5 mg of losartan. I have increased losartan and added metoprolol. Blood pressures are slowly improving. 09/12/2018-the changes in medication seems to have good control of his blood pressure. There is some variability but in general pulse and blood pressure are stable. (6) Dehydration Is this a current diagnosis for this admission?: Yes Plan: 09/10/2018-we will continue maintenance saline and increased free water through the nasogastric tube. Serum creatinine is normal but the BUN is still slightly elevated. 09/11/2018-we will gradually decrease IV fluid and slowly increase free water through the nasogastric tube until the patient is eating. Continue to monitor labs. 09/12/2018-I am continuing gentle IV fluids and 600 mL of free water through the nasogastric tube. He has had a net positive fluid balance and so I decreased the IV saline to 50 mL an hour. (7) Hyperkalemia Is this a current diagnosis for this admission?: Yes Plan: 09/10/2018-with IV fluids and improved hydration the potassium is back to normal. Continue to monitor. 09/11/2018-serum potassium is now low. Will begin potassium supplementation. 09/12/2018-currently requires potassium chloride supplement. Continue to monitor potassium. (8) Acute kidney injury Is this a current diagnosis for this admission?: Yes Plan: 09/10/2018-secondary to dehydration. Resolved. 09/11/2018-resolved 09/12/2018-as above (9) Type 2 diabetes mellitus Qualifiers: Diabetes mellitus retirement insulin use: with retirement use Is this a current diagnosis for this admission?: Yes Plan: 09/10/2018-he is currently on sliding scale insulin. We are initiating tube feeds. We will monitor his Accu-Cheks. He will likely need to resume his metformin at some point. 09/11/2018-continue current regimen. Fingersticks are well controlled. 09/12/2018-the Accu-Cheks are well controlled with the sliding scale coverage. (10) Aspiration pneumonia Qualifiers: Aspiration pneumonia type: unspecified Laterality: unspecified laterality Is this a current diagnosis for this admission?: Yes Plan: 09/10/2018-he has rhonchi diffusely. He is coughing up pale yellow mucus. We will continue his antibiotics and repeat his chest x-ray. I have also ordered aspiration precautions. 09/11/2018-the patient still sounds quite coarse. I will continue the antibiotics at this time. His risk of aspiration was very high at the time of admission. Still awaiting speech therapy for a swallow eval. 09/12/2018-still congested cough. He is on antibiotics for suspected aspiration pneumonia. Speech therapy will be working with the patient. Medications and nutrition through the nasogastric tube for now. (11) Dysphagia Qualifiers: Dysphagia type: unspecified Qualified Code(s): R13.10 - Dysphagia, unspecified Is this a current diagnosis for this admission?: Yes Plan: 09/10/2018-patient has nasogastric tube at this time. Speech therapy has been consulted. He was too compromised to see initially but now he is much more awake and will be evaluated. 09/11/2018-the patient is now awake and alert enough to be assessed by speech therapy. Nursing will perform their usual bedside swallow eval. I can make some changes based on that evaluation but I still would like speech therapy to see the patient. 09/12/2018-the patient still is extremely high risk for aspiration. Await a more comprehensive evaluation by speech therapy other than the bedside swallow eval. - Time Time Spent with patient: 25-34 minutes Medications reviewed and adjusted accordingly: Yes Anticipated discharge: SNF, Other - Plan Summary Plan Summary: I reviewed the patient's current situation and pointed out potential outcomes. I explained that if his swallow did not recover he would need a PEG tube if he wanted to continue aggressive therapy. He would likely not be able to return to [facility] but would need placement in long-term facility. Hopefully he will regain some physical function and not require a wheelchair or be bedbound. I did explain that if he regains a significant amount of function he might be appropriate for assisted living and be able to return back to [facility]. I did explain that it is early in the course but he should begin thinking about his options. If he fails a swallow then we should move to a PEG tube, if he wishes to proceed that way.
[2018-09-12] MEDS: NORMAL SALINE 1000 ML 1,000 ML IV PRN (23:52)
[2018-09-13] MEDS: IPRATROPIUM/ALBUTEROL 0.5-2.5 MG/3 ML AMPUL NEB SCH ×2 (00:28→08:27)
[2018-09-13] MEDS: INSULIN LISPRO 100 UNIT/ML 3 ML VIAL SUBCUT SCH ×4 (00:41→17:58)
[2018-09-13] MEDS: PIPERACILLIN SODIUM/TAZOBACTAM 3.375 GM in NORMAL SALINE 100 ML IV SCH ×4 (03:13→21:52)
[2018-09-13 06:08] LABS: ABSOLUTE EOSINOPHILS # (AUTO) 0.7 10^3/uL (0.0-0.6); ABSOLUTE MONOCYTES (AUTO) 0.5 10^3/uL (0.1-1.4); ABSOLUTE NEUT (AUTO) 3.9 10^3/uL (1.7-8.2); BASOPHILS % (AUTO) 0.6 % (0-2); EOSINOPHILS % (AUTO) 10.9 % (0-6); HEMATOCRIT 31.5 % (37.9-51.0); HEMOGLOBIN 10.3 g/dL (13.5-17.0); MEAN CORPUSCULAR HEMOGLOBIN 29.8 pg (27.0-33.4); MEAN CORPUSCULAR HGB CONC 32.9 g/dL (32.0-36.0); MEAN CORPUSCULAR VOLUME 91 fl (80-97); MONOCYTES % (AUTO) 8.1 % (3-13); PLATELET COUNT 171 10^3/uL (150-450); RED BLOOD COUNT 3.47 10^6/uL (4.35-5.55); RED CELL DISTRIBUTION WIDTH 14.8 % (11.5-14.0); SEGMENTED NEUTROPHILS % (AUTO) 63.4 % (42-78); TOTAL CELLS COUNTED % (AUTO) 100 %; WHITE BLOOD COUNT 6.1 10^3/uL (4.0-10.5)
[2018-09-13] MEDS: PANTOPRAZOLE SODIUM 40 MG PACKET.DR NG SCH (06:24)
[2018-09-13 06:30] LABS: BLOOD UREA NITROGEN 14 mg/dL (7-20); CALCIUM 8.2 mg/dL (8.4-10.2); CARBON DIOXIDE 22 mmol/L (22-30); CHLORIDE 106 mmol/L (98-107); GLUCOSE 129 mg/dL (75-110); POTASSIUM 3.6 mmol/L (3.6-5.0)
[2018-09-13 06:32] LABS: ANION GAP 9 (5-19)
--- NOTE | 2018-09-13 07:46 | Progress Note Acknowledgement ---
Progress Note Acknowledgement Progess Note Acknowledgement: I, the undersigned member of the medical staff with appropriate privileges and with supervisory authority over [ PAC ], a dependent practice allied health professional, acknowledge that I have reviewed the progress notes entered on this patient, and in my professional judgment believe that the assessment made and/or any care evidenced was appropriate
--- NOTE | 2018-09-13 09:05 | PDOC PROGRESS REPORT ---
Subjective Progress Note for:: 09/13/18 Subjective:: Patient seen today for evaluation concerning multiple medical problems, primarily status post acute hemorrhagic stroke with dysphagia. Patient is currently on tube feedings however he is losing weight since admission. Came in at 51.2 kg currently 43.9 kg. Patient has been evaluated initially by speech therapy 4 days ago. Patient has decided that he would like a permanent feeding tube placed prior to discharge. I have discussed this with Dr. Jacobs and he has agreed that general surgery should be consulted. Patient is otherwise medically stable no complain ts Reason For Visit: ACUTE HEMORRHAGIC STROKE Physical Exam Vital Signs: Temp Pulse Resp BP Pulse Ox 98.2 F 56 L 19 120/60 98 09/13/18 03:09 09/13/18 07:00 09/13/18 03:09 09/13/18 03:09 09/13/18 04:15 Pulse Oximeter Continuous Start: 09/07/18 19:30 Freq: RTQ4 Status: Active Protocol: Document 09/13/18 04:15 DBE (Rec: 09/13/18 04:16 DBE [email or web address]) Pulse Oximetry Assessment Oxygen Saturation (92-100) 98 Oxygen Delivery Method Room Air Fraction of Inspired Oxygen (FIO2) 21 Equipment Usage Equipment in Use Continuous SpO2 Machine # 1 Intake & Output 09/12/18 09/13/18 09/14/18 06:59 06:59 06:59 Intake Total 2943 3093 Output Total 540 675 Balance 2403 2418 Weight 43.7 kg 43.9 kg General appearance: PRESENT: no acute distress, thin. ABSENT: well-developed, well-nourished Head exam: PRESENT: atraumatic, normocephalic Neurological exam: PRESENT: alert, awake, oriented to person, oriented to place, oriented to time, oriented to situation, CN II-XII grossly intact. ABSENT: motor sensory deficit Psychiatric exam: PRESENT: flat affect, normal mood. ABSENT: homicidal ideation, suicidal ideation Results Laboratory Results: 09/13/18 05:21 09/13/18 05:21 09/13/18 09/13/18 05:21 05:21 WBC 6.1 RBC 3.47 L Hgb 10.3 L Hct 31.5 L MCV 91 MCH 29.8 MCHC 32.9 RDW 14.8 H Plt Count 171 Seg Neutrophils % 63.4 Lymphocytes % 17.0 Monocytes % 8.1 Eosinophils % 10.9 H Basophils % 0.6 Absolute Neutrophils 3.9 Absolute Lymphocytes 1.0 Absolute Monocytes 0.5 Absolute Eosinophils 0.7 H Absolute Basophils 0.0 Sodium 136.6 L Potassium 3.6 Chloride 106 Carbon Dioxide 22 Anion Gap 9 BUN 14 Creatinine 0.95 Est GFR ( Amer) > 60 Est GFR (Non-Af Amer) > 60 Glucose 129 H Calcium 8.2 L Magnesium 1.9 09/07/18 16:03 Blood Blood Culture - Final NO GROWTH IN 5 DAYS 09/07/18 13:36 Blood Blood Culture - Final NO GROWTH IN 5 DAYS Impressions: Head CT 09/08/18 00:00 IMPRESSION: No change from yesterday. EVIDENCE OF ACUTE STROKE: NO. KUB X-Ray 09/08/18 00:00 IMPRESSION: Nasogastric tube tip and side port in the stomach. Grossly nonobstructive bowel gas pattern Chest X-Ray 09/11/18 06:00 IMPRESSION: STABLE APPEARANCE. NO ACUTE RADIOGRAPHIC FINDING IN THE CHEST. Assessment and Plan - Diagnosis (1) Acute hemorrhagic infarction of brain Is this a current diagnosis for this admission?: Yes (2) Aspiration pneumonia Qualifiers: Aspiration pneumonia type: unspecified Laterality: unspecified laterality Is this a current diagnosis for this admission?: Yes Plan: 09/10/2018-he has rhonchi diffusely. He is coughing up pale yellow mucus. We will continue his antibiotics and repeat his chest x-ray. I have also ordered aspiration precautions. 09/11/2018-the patient still sounds quite coarse. I will continue the antibiotics at this time. His risk of aspiration was very high at the time of admission. Still awaiting speech therapy for a swallow eval. 09/12/2018-still congested cough. He is on antibiotics for suspected aspiration pneumonia. Speech therapy will be working with the patient. Medications and nutrition through the nasogastric tube for now. 09/13/2018. Patient has decided that he would like to have a permanent feeding tube placed, general surgery will be consulted. Patient's weight decreased approximately 8 kg since admission. Speech pathology will be consulted again today for further discussion (3) Atrial fibrillation Qualifiers: Atrial fibrillation type: unspecified Qualified Code(s): I48.91 - U nspecified atrial fibrillation Is this a current diagnosis for this admission?: Yes (4) Dehydration Is this a current diagnosis for this admission?: Yes (5) Dysphagia Qualifiers: Dysphagia type: unspecified Qualified Code(s): R13.10 - Dysphagia, unspecified Is this a current diagnosis for this admission?: Yes - Time Time Spent with patient: Less than 15 minutes
[2018-09-13] MEDS: METOPROLOL TARTRATE 25 MG TABLET NG SCH ×2 (10:31→21:55)
[2018-09-13] MEDS: LOSARTAN POTASSIUM 25 MG TABLET NG SCH (10:31)
[2018-09-13] MEDS: POTASSIUM CHLORIDE 20 MEQ PACKET NG SCH (10:31)
[2018-09-13] MEDS: MAGNESIUM OXIDE 400 MG TABLET NG SCH ×2 (10:31→17:58)
[2018-09-13] MEDS: DIGOXIN INJ 0.5 MG/2 ML AMPULE IV SCH (10:32)
[2018-09-13] MEDS ORDERED: IPRATROPIUM/ALBUTEROL 0.5-2.5 MG/3 ML AMPUL NEB PRN (10:45)
--- NOTE | 2018-09-13 14:52 | PDOC PROGRESS REPORT ---
Subjective Progress Note for:: 09/13/18 Subjective:: 09/13/2018 1500 hrs. speech therapy just performed evaluation concerning the patient's dysphagia. Patient was questionable concerning tolerating pure and honey thickened substance. Speech therapy recommended doing a modified barium swallow tomorrow. Following the results from the barium swallow decision will be made concerning PEG tube feeding. Per speech pathology patient has made significant improvement in his swallowing function to admission. Patient cont inues to improve may be able to tolerate p.o. feedings not require surgical procedure. Reason For Visit: ACUTE HEMORRHAGIC STROKE Physical Exam Vital Signs: Temp Pulse Resp BP Pulse Ox 97.2 F 58 L 16 116/65 97 09/13/18 11:36 09/13/18 11:36 09/13/18 11:36 09/13/18 11:36 09/13/18 12:22 Pulse Oximeter Continuous Start: 09/07/18 19:30 Freq: RTQ4 Status: Active Protocol: Document 09/13/18 12:22 HCR (Rec: 09/13/18 12:22 HCR [email or web address]) Pulse Oximetry Assessment Oxygen Saturation (92-100) 97 Oxygen Delivery Method Room Air Fraction of Inspired Oxygen (FIO2) 21 Equipment Usage Equipment Standby Continuous SpO2 Machine # 1 Intake & Output 09/12/18 09/13/18 09/14/18 06:59 06:59 06:59 Intake Total 2943 3093 100 Output Total 540 675 Balance 2403 2418 100 Weight 43.7 kg 43.9 kg Results Laboratory Results: 09/13/18 05:21 09/13/18 05:21 09/13/18 09/13/18 05:21 05:21 WBC 6.1 RBC 3.47 L Hgb 10.3 L Hct 31.5 L MCV 91 MCH 29.8 MCHC 32.9 RDW 14.8 H Plt Count 171 Seg Neutrophils % 63.4 Lymphocytes % 17.0 Monocytes % 8.1 Eosinophils % 10.9 H Basophils % 0.6 Absolute Neutrophils 3.9 Absolute Lymphocytes 1.0 Absolute Monocytes 0.5 Absolute Eosinophils 0.7 H Absolute Basophils 0.0 Sodium 136.6 L Potassium 3.6 Chloride 106 Carbon Dioxide 22 Anion Gap 9 BUN 14 Creatinine 0.95 Est GFR ( Amer) > 60 Est GFR (Non-Af Amer) > 60 Glucose 129 H Calcium 8.2 L Magnesium 1.9 09/07/18 16:03 Blood Blood Culture - Final NO GROWTH IN 5 DAYS 09/07/18 13:36 Blood Blood Culture - Final NO GROWTH IN 5 DAYS Impressions: Head CT 09/08/18 00:00 IMPRESSION: No change from yesterday. EVIDENCE OF ACUTE STROKE: NO. KUB X-Ray 09/08/18 00:00 IMPRESSION: Nasogastric tube tip and side port in the stomach. Grossly nonobstructive bowel gas pattern Chest X-Ray 09/11/18 06:00 IMPRESSION: STABLE APPEARANCE. NO ACUTE RADIOGRAPHIC FINDING IN THE CHEST. Assessment and Plan - Diagnosis (1) Acute hemorrhagic infarction of brain Is this a current diagnosis for this admission?: Yes (2) Aspiration pneumonia Qualifiers: Aspiration pneumonia type: unspecified Laterality: unspecified laterality Is this a current diagnosis for this admission?: Yes (3) Atrial fibrillation Qualifiers: Atrial fibrillation type: unspecified Qualified Code(s): I48.91 - Unspecified atrial fibrillation Is this a current diagnosis for this admission?: Yes (4) Dehydration Is this a current diagnosis for this admission?: Yes (5) Dysphagia Qualifiers: Dysphagia type: unspecified Qualified Code(s): R13.10 - Dysphagia, unspecified Is this a current diagnosis for this admission?: Yes
[2018-09-13] MEDS: ATORVASTATIN CALCIUM 80 MG TABLET PO SCH (21:55)
[2018-09-13] MEDS: VANCOMYCIN HCL 750 MG in DEXTROSE 5%-WATER 250 ML IV SCH (22:22)
[2018-09-14] MEDS: INSULIN LISPRO 100 UNIT/ML 3 ML VIAL SUBCUT SCH ×4 (00:37→19:55)
[2018-09-14] MEDS: PIPERACILLIN SODIUM/TAZOBACTAM 3.375 GM in NORMAL SALINE 100 ML IV SCH ×4 (03:34→22:25)
[2018-09-14] MEDS: PANTOPRAZOLE SODIUM 40 MG PACKET.DR NG SCH (05:28)
[2018-09-14 06:51] LABS: ANION GAP 8 (5-19); BLOOD UREA NITROGEN 13 mg/dL (7-20); CALCIUM 8.5 mg/dL (8.4-10.2); CARBON DIOXIDE 23 mmol/L (22-30); CHLORIDE 104 mmol/L (98-107); GLUCOSE 133 mg/dL (75-110); POTASSIUM 3.9 mmol/L (3.6-5.0)
--- NOTE | 2018-09-14 08:50 | PDOC PROGRESS REPORT ---
Subjective Progress Note for:: 09/14/18 Subjective:: Patient is sleeping ever arouses easily. Voices no complaints. Auscultation of lungs reveal coarse rales scattered. Abdomen is soft and supple no guarding no rebound. Tube feedings are in place. Patient is alert and oriented. Patient is going down for modified barium swallow this morning. Following that decision will be made concerning further feeding Vital signs are stable labs are stable. Patient's weight is going to be reevaluated this morning prior to the last few days. Reason For Visit: ACUTE HEMORRHAGIC STROKE Physical Exam Vital Signs: Temp Pulse Resp BP Pulse Ox 97.4 F 57 L 13 148/65 H 100 09/14/18 07:47 09/14/18 07:47 09/14/18 07:47 09/14/18 07:47 09/14/18 07:47 Pulse Oximeter Continuous Start: 09/07/18 19:30 Freq: RTQ4 Status: Complete Protocol: Document 09/13/18 18:32 HCR (Rec: 09/13/18 18:32 HCR [email or web address]) Pulse Oximetry Assessment Equipment Usage Equipment Discontinued Continuous SpO2 Machine # 1 Intake & Output 09/13/18 09/14/18 09/15/18 06:59 06:59 06:59 Intake Total 3093 2832 Output Total 675 1250 Balance 2418 1582 Weight 43.9 kg 55.8 kg General appearance: PRESENT: no acute distress, hard of hearing, thin Head exam: PRESENT: atraumatic, normocephalic Respiratory exam: PRESENT: rales Cardiovascular exam: PRESENT: bradycardia Rectal exam: PRESENT: deferred Neurological exam: PRESENT: awake, oriented to situation, other - Some dysarthria Skin exam: PRESENT: dry, intact, warm. ABSENT: cyanosis, rash Results Laboratory Results: 09/13/18 05:21 09/14/18 05:52 09/14/18 05:52 Sodium 134.5 L Potassium 3.9 Chloride 104 Carbon Dioxide 23 Anion Gap 8 BUN 13 Creatinine 1.01 Est GFR ( Amer) > 60 Est GFR (Non-Af Amer) > 60 Glucose 133 H Calcium 8.5 Impressions: Head CT 09/08/18 00:00 IMPRESSION: No change from yesterday. EVIDENCE OF ACUTE STROKE: NO. KUB X-Ray 09/08/18 00:00 IMPRESSION: Nasogastric tube tip and side port in the stomach. Grossly nonobstructive bowel gas pattern Chest X-Ray 09/11/18 06:00 IMPRESSION: STABLE APPEARANCE. NO ACUTE RADIOGRAPHIC FINDING IN THE CHEST. Assessment and Plan - Diagnosis (1) Acute hemorrhagic infarction of brain Is this a current diagnosis for this admission?: Yes (2) Aspiration pneumonia Qualifiers: Aspiration pneumonia type: unspecified Laterality: unspecified laterality Is this a current diagnosis for this admission?: Yes (3) Atrial fibrillation Qualifiers: Atrial fibrillation type: unspecified Qualified Code(s): I48.91 - Unspecified atrial fibrillation Is this a current diagnosis for this admission?: Yes (4) Dehydration Is this a current diagnosis for this admission?: Yes (5) Dysphagia Qualifiers: Dysphagia type: unspecified Qualified Code(s): R13.10 - Dysphagia, unspecified Is this a current diagnosis for this admission?: Yes
--- NOTE | 2018-09-14 10:23 | RADIOLOGY REPORT (SQ) ---
EXAM DESCRIPTION: CORRINE SWALLOW COMPLETED DATE/TIME: 09/14/2018 9:46 am REASON FOR STUDY: evaluation of dysphagia STROKE COMPARISON: None. TECHNIQUE: Videofluoroscopic swallowing examination was performed in conjunction with speech patholo gy. Videofluoroscopic imaging was obtained and reviewed and these are the findings: RADIATION DOSE: 4 minutes 32 seconds of fluoroscopy was used. 2 images saved to PACS. LIMITATIONS: None FINDINGS: The patient was brought into the fluoro room and placed upright on a modified barium swall ow chair. The patient was then given multiple consistencies mixed with barium to swallow under live fluoroscopic video guidance. According to the Speech Pathologist there was there is laryngeal penetr ation of nectar thick liquids, honey thick liquids, and post swallow residual contrast. Patient demo nstrates a delayed weak uncoordinated swallow. IMPRESSION: LARYNGEAL PENETRATION AND ASPIRATION DESCRIBED ABOVE. PLEASE SEE SPEECH PATHOLOGIST REPORT FOR OTHER FINDINGS AND RECOMMENDATIONS. COMMENT: Quality ID [id number]: Final reports for procedures using fluoroscopy that document radiation exp osure indices, or exposure time and number of fluorographic images (if radiation exposure indices are not available) TECHNICAL DOCUMENTATION: JOB ID: [id number] [employer]- All Rights Reserved Reading location - IP/workstation name: [email or web address]
[2018-09-14] MEDS: METOPROLOL TARTRATE 25 MG TABLET NG SCH ×2 (11:07→22:28)
[2018-09-14] MEDS: DIGOXIN INJ 0.5 MG/2 ML AMPULE IV SCH (11:07)
[2018-09-14] MEDS: POTASSIUM CHLORIDE 20 MEQ PACKET NG SCH (11:07)
[2018-09-14] MEDS: MAGNESIUM OXIDE 400 MG TABLET NG SCH ×2 (11:08→17:05)
[2018-09-14] MEDS: LOSARTAN POTASSIUM 25 MG TABLET NG SCH (11:08)
--- NOTE | 2018-09-14 13:55 | ST Inp Modified Barium Swallow ---
Medical Diagnosis - Medical Diagnoses Medical Diagnosis Description & ICD-10 Code(s): stroke - ICD-10 Tx Diagnosis Coding (1) Dysphagia ICD-10 Code(s): R13.10 - DYSPHAGIA, UNSPECIFIED ST Inpatient MBS - General Date: 09/14/18 Date of Onset: 09/08/18 - History -: Medical - Patient admitted with hemorrhagic/ischemic infarct. Poor swallow reflex seen at bedside. Recommended MBSS to further assess swallow function and determine need for alternative nutrition/hydration. NG currently in place. Medications: Medications Reviewed Allergies: Refer to medical record - Subjective Current Nutritional Means: NG Current PO Diet: N/A (NPO) Current Symptoms: Coughing Pain: Patient reports, 0/5 - Objective Assessment: Upright, Left Lateral - Food Trials Food Trials Used: Honey-thickened liquids, Juliette thick liquids, Pureed, Soft solids The Patient: fed by ST, via cup, via spoon - Assessment Labial Function: Within Functional Limits Lingual Function: Within Functional Limits Mandibular Function: Within Functional Limits Dentition: Edentulous Laryngeal Function: Weak Cough, weak voicing - Pharyngeal Stage Initiation of Pharyngeal Stage: Delayed - swallow triggered in mid pharynx Decreased Laryngeal Elevation: Yes Reduced Pressure Generation: Yes Reduced Tongue Base Retraction: Yes Pre-Swallowing Pooling in Valleculae: Significant Pre-Swallowing Pooling in Pyriforms: Moderate Post Swallow Residuals in Valleculae: Mild Post Swallow Residuals in Pyriforms: Mild Pahryngeal Stage Comments: Fatigue with multiple swallow trials noted during swallow study. Swallow became slower and less effective with multiple trials. - Impression/Summary Laryngeal Penetration: Yes - with nectar and honey thick trials, also with residuals. Tracheal Aspiration: yes - With nectar thick liquids, silent Productive Cough: No - cued patient to cough Effective Clearing: no - very weak cough Ineffective Compensatory Strategies: hard swallow Patient Presents With: Pharyngeal stage dysph., Severe Risk of Aspiration: Severe Risk of Nutritional Compromise: Moderate Risk Due To: Aspiration risk due to delay in swallow reflex and poor airway protection (weak cough, reduced cough reflex to penetration/aspiration). - Recommendations NPO: yes Solid Diet Recommendations: Pureed - for therapeutic trials Liquid Diet Recommendations: Honey-Thick - for therapeutic trials Strict Aspitarion Precautions: Yes Dysphagia Therapy with RADIUS CORNER MACHINE OPERATOR: Yes Recommended Techniques: Fully Upright During Meal, Small Bites and Sips Other Recommendations: Patient may need alternative means of nutrition/hydration. Although patient was observed to have adequate swallow with honey thick liquids and puree solids, paitent will likely fatigue too much to tolerate adequate PO nutrition/hydration. MD informed of results. - Time Total Time: 30 Total Timed Minutes: 30
[2018-09-14] MEDS: ATORVASTATIN CALCIUM 80 MG TABLET PO SCH (22:29)
[2018-09-14] MEDS: VANCOMYCIN HCL 750 MG in DEXTROSE 5%-WATER 250 ML IV SCH (22:55)
[2018-09-15] MEDS: INSULIN LISPRO 100 UNIT/ML 3 ML VIAL SUBCUT SCH ×4 (00:19→18:54)
[2018-09-15] MEDS: PIPERACILLIN SODIUM/TAZOBACTAM 3.375 GM in NORMAL SALINE 100 ML IV SCH ×2 (04:10→09:27)
[2018-09-15] MEDS: PANTOPRAZOLE SODIUM 40 MG PACKET.DR NG SCH (06:52)
[2018-09-15] MEDS: POTASSIUM CHLORIDE 20 MEQ PACKET NG SCH (09:22)
[2018-09-15] MEDS: LOSARTAN POTASSIUM 25 MG TABLET NG SCH (09:22)
[2018-09-15] MEDS: METOPROLOL TARTRATE 25 MG TABLET NG SCH (09:22)
[2018-09-15] MEDS: DIGOXIN INJ 0.5 MG/2 ML AMPULE IV SCH (09:23)
[2018-09-15] MEDS: MAGNESIUM OXIDE 400 MG TABLET NG SCH ×2 (09:23→17:42)
[2018-09-15] MEDS: NORMAL SALINE 1000 ML 1,000 ML IV PRN (14:05)
--- NOTE | 2018-09-15 16:19 | PDOC PROGRESS REPORT ---
Subjective Progress Note for:: 09/15/18 Subjective:: 09/15/2018. Assumed care today. Patient is awake, alert, oriented x1, complaining of weakness, follows command, denies any fever, chills, nausea, vomiting, diarrhea. Reason For Visit: ACUTE HEMORRHAGIC STROKE Physical Exam Vital Signs: Temp Pulse Resp BP Pulse Ox 99.2 F 55 L 22 H 114/58 L 98 09/15/18 12:20 09/15/18 12:20 09/15/18 12:20 09/15/18 12:20 09/15/18 12:20 Pulse Oximeter Continuous Start: 09/07/18 19:30 Freq: RTQ4 Status: Complete Protocol: Document 09/13/18 18:32 HCR (Rec: 09/13/18 18:32 HCR [email or web address]) Pulse Oximetry Assessment Equipment Usage Equipment Discontinued Continuous SpO2 Machine # 1 Intake & Output 09/14/18 09/15/18 09/16/18 06:59 06:59 06:59 Intake Total 2832 2221 577 Output Total 1250 1400 Balance 1582 821 577 Weight 55.8 kg General appearance: PRESENT: no acute distress, well-developed, well-nourished Head exam: PRESENT: atraumatic, normocephalic Respiratory exam: PRESENT: clear to auscultation kaz. ABSENT: rales, rhonchi, wheezes Cardiovascular exam: PRESENT: RRR. ABSENT: diastolic murmur, rubs, systolic murmur GI/Abdominal exam: PRESENT: normal bowel sounds, soft. ABSENT: distended, guarding, mass, organolmegaly, rebound, tenderness Extremities exam: PRESENT: full ROM. ABSENT: calf tenderness, clubbing, pedal edema Neurological exam: PRESENT: alert, awake, oriented to person, CN II-XII grossly intact, motor sensory deficit - Rt U/L Ext St 3/5 LT U/L Ext St 4/5 Skin exam: PRESENT: dry, intact, warm. ABSENT: cyanosis, rash Results Laboratory Results: 09/13/18 05:21 09/14/18 05:52 Impressions: Head CT 09/08/18 00:00 IMPRESSION: No change from yesterday. EVIDENCE OF ACUTE STROKE: NO. KUB X-Ray 09/08/18 00:00 IMPRESSION: Nasogastric tube tip and side port in the stomach. Grossly nonobstructive bowel gas pattern Chest X-Ray 09/11/18 06:00 IMPRESSION: STABLE APPEARANCE. NO ACUTE RADIOGRAPHIC FINDING IN THE CHEST. Modified Barium Swallow 09/14/18 00:00 IMPRESSION: LARYNGEAL PENETRATION AND ASPIRATION DESCRIBED ABOVE. PLEASE SEE SPEECH PATHOLOGIST REPORT FOR OTHER FINDINGS AND RECOMMENDATIONS. Assessment and Plan - Diagnosis (1) Acute hemorrhagic infarction of brain Is this a current diagnosis for this admission?: Yes Plan: Continue high intensity statins, optimize BP, continue antiplatelets. Continue ST/PT/OT. Pending placement for rehab. 09/14/2018. Barium swallow. Patient failed swallow eval. Recommendation is a PEG tube placement. Surgery consulted for PEG tube placement. Based on my conversation with the patient patient do understand his underlying medical condition, the necessity for PEG tube placement. Patient has agreed PEG tube placement. Continue medication meds administration through nasogastric tube meanwhile. After PEG tube placement patient will be transitioned to rehab. 09/07/2018. CT head: Subacute infarct left basal ganglia. 09/08/2018. CT head: No changes. (2) Aspiration pneumonia Qualifiers: Aspiration pneumonia type: unspecified Laterality: unspecified laterality Is this a current diagnosis for this admission?: Yes Plan: Due to severe dysphasia caused by underlying CVA. Continue vancomycin. Cultures growing normal oral simin. Continue aspiration precaution. (3) Atrial fibrillation Qualifiers: Atrial fibrillation type: unspecified Qualified Code(s): I48.91 - Unspecified atrial fibrillation Is this a current diagnosis for this admission?: Yes Plan: Rate controlled. Not a candidate for anticoagulation. Heart rate in the 50s. Continue beta-blockers and digoxin. Digoxin subtherapeutic. Increase to 0.125 daily. Decrease beta-blockers and switch to Toprol-XL. (4) Dysphagia Is this a current diagnosis for this admission?: Yes Plan: Due to recent CVA. Failed barium swallow eval. Plan is for PEG tube placement. Continue nasogastric tube.
[2018-09-15 22:01] LABS: VANCOMYCIN,TROUGH 14.2 ug/mL (5.0-20.0)
[2018-09-15] MEDS: ATORVASTATIN CALCIUM 80 MG TABLET PO SCH (22:06)
[2018-09-15] MEDS: VANCOMYCIN HCL 750 MG in DEXTROSE 5%-WATER 250 ML IV SCH (22:06)
[2018-09-16] MEDS: INSULIN LISPRO 100 UNIT/ML 3 ML VIAL SUBCUT SCH ×4 (02:18→18:29)
[2018-09-16] MEDS: PANTOPRAZOLE SODIUM 40 MG PACKET.DR NG SCH (05:02)
[2018-09-16] MEDS: NORMAL SALINE 1000 ML 1,000 ML IV PRN (05:14)
[2018-09-16 05:36] LABS: ABSOLUTE EOSINOPHILS # (AUTO) 0.6 10^3/uL (0.0-0.6); ABSOLUTE LYMPHOCYTES (AUTO) 1.2 10^3/uL (0.5-4.7); ABSOLUTE MONOCYTES (AUTO) 0.6 10^3/uL (0.1-1.4); ABSOLUTE NEUT (AUTO) 5.3 10^3/uL (1.7-8.2); BASOPHILS % (AUTO) 0.4 % (0-2); EOSINOPHILS % (AUTO) 8.3 % (0-6); HEMATOCRIT 32.6 % (37.9-51.0); LYMPHOCYTES % (AUTO) 14.9 % (13-45); MEAN CORPUSCULAR HEMOGLOBIN 29.9 pg (27.0-33.4); MEAN CORPUSCULAR HGB CONC 33.7 g/dL (32.0-36.0); MEAN CORPUSCULAR VOLUME 89 fl (80-97); MONOCYTES % (AUTO) 8.2 % (3-13); PLATELET COUNT 218 10^3/uL (150-450); RED BLOOD COUNT 3.68 10^6/uL (4.35-5.55); RED CELL DISTRIBUTION WIDTH 15.3 % (11.5-14.0); SEGMENTED NEUTROPHILS % (AUTO) 68.2 % (42-78); TOTAL CELLS COUNTED % (AUTO) 100 %; WHITE BLOOD COUNT 7.8 10^3/uL (4.0-10.5)
[2018-09-16 05:38] LABS: INTERNATIONAL RATION (INR) 1.15; PROTHROMBIN TIME 14.7 SEC (11.4-15.4)
[2018-09-16 05:56] LABS: ANION GAP 6 (5-19); BLOOD UREA NITROGEN 15 mg/dL (7-20); CALCIUM 8.7 mg/dL (8.4-10.2); CARBON DIOXIDE 22 mmol/L (22-30); CHLORIDE 108 mmol/L (98-107); GLUCOSE 100 mg/dL (75-110); POTASSIUM 4.3 mmol/L (3.6-5.0)
--- NOTE | 2018-09-16 07:50 | PDOC PROGRESS REPORT ---
Subjective Progress Note for:: 09/16/18 Subjective:: This is a 78-year-old male status post hemorrhagic stroke. Patient was evaluated by Dr. Gomez yesterday. Patient has dysphasia, and is unable to eat. He is in need of gastrostomy to obtain nutritional support. The patient is resting comfortably, but awakens easily to voice. He denies any significant pain. He does report weakness. Reason For Visit: ACUTE HEMORRHAGIC STROKE Physical Exam Vital Signs: Temp Pulse Resp BP Pulse Ox 97.5 F 69 23 H 140/56 H 98 09/16/18 03:02 09/16/18 03:02 09/16/18 03:02 09/16/18 03:02 09/16/18 03:02 Pulse Oximeter Continuous Start: 09/07/18 19:30 Freq: RTQ4 Status: Complete Protocol: Document 09/13/18 18:32 HCR (Rec: 09/13/18 18:32 HCR [email or web address]) Pulse Oximetry Assessment Equipment Usage Equipment Discontinued Continuous SpO2 Machine # 1 Intake & Output 09/15/18 09/16/18 09/17/18 06:59 06:59 06:59 Intake Total 2221 1994 Output Total 1400 1925 Balance 821 70 Weight 44 kg General appearance: PRESENT: no acute distress, cooperative Head exam: PRESENT: atraumatic, normocephalic Eye exam: PRESENT: scleral icterus Mouth exam: PRESENT: moist, neck supple Neck exam: ABSENT: meningismus, tenderness, thyromegaly, tracheal deviation Respiratory exam: PRESENT: unlabored. ABSENT: retraction, tachypnea, wheezes Cardiovascular exam: PRESENT: RRR Pulses: PRESENT: normal radial pulses Vascular exam: PRESENT: normal capillary refill. ABSENT: pallor GI/Abdominal exam: PRESENT: soft. ABSENT: distended, tenderness Rectal exam: PRESENT: deferred Neurological exam: PRESENT: alert, awake Psychiatric exam: ABSENT: agitated, anxious Results Laboratory Results: 09/16/18 04:14 09/16/18 04:14 09/15/18 09/15/18 09/16/18 19:05 21:35 04:14 WBC 7.8 RBC 3.68 L Hgb 11.0 L Hct 32.6 L MCV 89 MCH 29.9 MCHC 33.7 RDW 15.3 H Plt Count 218 Seg Neutrophils % 68.2 Lymphocytes % 14.9 Monocytes % 8.2 Eosinophils % 8.3 H Basophils % 0.4 Absolute Neutrophils 5.3 Absolute Lymphocytes 1.2 Absolute Monocytes 0.6 Absolute Eosinophils 0.6 Absolute Basophils 0.0 Sodium Potassium Chloride Carbon Dioxide Anion Gap BUN Creatinine 1.05 Est GFR ( Amer) > 60 Est GFR (Non-Af Amer) > 60 Glucose Calcium Blood Type A POSITIVE Antibody Screen NEGATIVE 09/16/18 04:14 WBC RBC Hgb Hct MCV MCH MCHC RDW Plt Count Seg Neutrophils % Lymphocytes % Monocytes % Eosinophils % Basophils % Absolute Neutrophils Absolute Lymphocytes Absolute Monocytes Absolute Eosinophils Absolute Basophils Sodium 135.9 L Potassium 4.3 Chloride 108 H Carbon Dioxide 22 Anion Gap 6 BUN 15 Creatinine 1.01 Est GFR ( Amer) > 60 Est GFR (Non-Af Amer) > 60 Glucose 100 Calcium 8.7 Blood Type Antibody Screen Impressions: Head CT 09/08/18 00:00 IMPRESSION: No change from yesterday. EVIDENCE OF ACUTE STROKE: NO. KUB X-Ray 09/08/18 00:00 IMPRESSION: Nasogastric tube tip and side port in the stomach. Grossly nonobstructive bowel gas pattern Chest X-Ray 09/11/18 06:00 IMPRESSION: STABLE APPEARANCE. NO ACUTE RADIOGRAPHIC FINDING IN THE CHEST. Modified Barium Swallow 09/14/18 00:00 IMPRESSION: LARYNGEAL PENETRATION AND ASPIRATION DESCRIBED ABOVE. PLEASE SEE SPEECH PATHOLOGIST REPORT FOR OTHER FINDINGS AND RECOMMENDATIONS. Assessment & Plan - Diagnosis (1) Dysphagia Qualifiers: Dysphagia type: unspecified Qualified Code(s): R13.10 - Dysphagia, unspecified Is this a current diagnosis for this admission?: Yes (2) Hemorrhagic stroke Is this a current diagnosis for this admission?: Yes - Plan Summary Plan Summary: This is a 78-year-old male status post stroke. He has witnessed aspiration on modified barium swallow. Request has been made for gastrostomy. Plan for percutaneous endoscopic gastrostomy in the OR today. Risks and benefits discussed with the patient. Informed consent obtained, and all questions were answered.
--- NOTE | 2018-09-16 07:56 | PDOC PROGRESS REPORT ---
Subjective Progress Note for:: 09/16/18 Subjective:: 09/16/2018 patient is seen today for status post stroke. Patient appears to be medically stable. Patient is scheduled for PEG tube placement today by general surgery. Patient failed modified barium swallow will need PEG tube for placement status Reason For Visit: ACUTE HEMORRHAGIC STROKE Physical Exam Vital Signs: Temp Pulse Resp BP Pulse Ox 97.5 F 69 23 H 140/56 H 98 09/16/18 03:02 09/16/18 03:02 09/16/18 03:02 09/16/18 03:02 09/16/18 03:02 Pulse Oximeter Continuous Start: 09/07/18 19:30 Freq: RTQ4 Status: Complete Protocol: Document 09/13/18 18:32 HCR (Rec: 09/13/18 18:32 HCR [email or web address]) Pulse Oximetry Assessment Equipment Usage Equipment Discontinued Continuous SpO2 Machine # 1 Intake & Output 09/15/18 09/16/18 09/17/18 06:59 06:59 06:59 Intake Total 2221 1994 Output Total 1400 1925 Balance 821 70 Weight 44 kg General appearance: PRESENT: no acute distress, well-developed, well-nourished, other - Resting comfortably Head exam: PRESENT: atraumatic, normocephalic Mouth exam: PRESENT: moist, tongue midline, other - Feeding tube in place through nose Results Laboratory Results: 09/16/18 04:14 09/16/18 04:14 09/15/18 09/15/18 09/16/18 19:05 21:35 04:14 WBC 7.8 RBC 3.68 L Hgb 11.0 L Hct 32.6 L MCV 89 MCH 29.9 MCHC 33.7 RDW 15.3 H Plt Count 218 Seg Neutrophils % 68.2 Lymphocytes % 14.9 Monocytes % 8.2 Eosinophils % 8.3 H Basophils % 0.4 Absolute Neutrophils 5.3 Absolute Lymphocytes 1.2 Absolute Monocytes 0.6 Absolute Eosinophils 0.6 Absolute Basophils 0.0 Sodium Potassium Chloride Carbon Dioxide Anion Gap BUN Creatinine 1.05 Est GFR ( Amer) > 60 Est GFR (Non-Af Amer) > 60 Glucose Calcium Blood Type A POSITIVE Antibody Screen NEGATIVE 09/16/18 04:14 WBC RBC Hgb Hct MCV MCH MCHC RDW Plt Count Seg Neutrophils % Lymphocytes % Monocytes % Eosinophils % Basophils % Absolute Neutrophils Absolute Lymphocytes Absolute Monocytes Absolute Eosinophils Absolute Basophils Sodium 135.9 L Potassium 4.3 Chloride 108 H Carbon Dioxide 22 Anion Gap 6 BUN 15 Creatinine 1.01 Est GFR ( Amer) > 60 Est GFR (Non-Af Amer) > 60 Glucose 100 Calcium 8.7 Blood Type Antibody Screen Impressions: Head CT 09/08/18 00:00 IMPRESSION: No change from yesterday. EVIDENCE OF ACUTE STROKE: NO. KUB X-Ray 09/08/18 00:00 IMPRESSION: Nasogastric tube tip and side port in the stomach. Grossly nonobstructive bowel gas pattern Chest X-Ray 09/11/18 06:00 IMPRESSION: STABLE APPEARANCE. NO ACUTE RADIOGRAPHIC FINDING IN THE CHEST. Modified Barium Swallow 09/14/18 00:00 IMPRESSION: LARYNGEAL PENETRATION AND ASPIRATION DESCRIBED ABOVE. PLEASE SEE SPEECH PATHOLOGIST REPORT FOR OTHER FINDINGS AND RECOMMENDATIONS. Assessment and Plan - Diagnosis (1) Acute hemorrhagic infarction of brain Is this a current diagnosis for this admission?: Yes (2) Aspiration pneumonia Qualifiers: Aspiration pneumonia type: unspecified Laterality: unspecified laterality Is this a current diagnosis for this admission?: Yes (3) Atrial fibrillation Qualifiers: Atrial fibrillation type: unspecified Qualified Code(s): I48.91 - Unspecified atrial fibrillation Is this a current diagnosis for this admission?: Yes (4) Dehydration Is this a current diagnosis for this admission?: Yes (5) Dysphagia Qualifiers: Dysphagia type: unspecified Qualified Code(s): R13.10 - Dysphagia, unspecified Is this a current diagnosis for this admission?: Yes
--- NOTE | 2018-09-16 09:53 | RADIOLOGY REPORT (SQ) ---
EXAM DESCRIPTION: CHEST SINGLE VIEW COMPLETED DATE/TIME: 09/16/2018 9:26 am REASON FOR STUDY: preop COMPARISON: 09/11/2018 NUMBER OF VIEWS: One view. TECHNIQUE: Single frontal radiographic image of the chest acquired. LIMITATIONS: None. FINDINGS: LUNGS AND PLEURA: Stable appearance. MEDIASTINUM AND HILAR STRUCTURES: Stable heart size and mediastinal structures. HEART AND VASCULAR STRUCTURES: Stable appearance. BONES: No acute findings. HARDWARE: NG tube remains in place. OTHER: No other significant finding. IMPRESSION: STABLE APPEARANCE OF THE CHEST. TECHNICAL DOCUMENTATION: JOB ID: [id number] [employer]- All Rights Reserved Reading location - IP/workstation name: [email or web address]
[2018-09-16] MEDS ORDERED: METOPROLOL SUCCINATE 25 MG TAB.SR.24H PO SCH (10:00)
[2018-09-16] MEDS ORDERED: PROPOFOL INJ 200 MG/20 ML VIAL IV ONE (11:43)
[2018-09-16] MEDS ORDERED: CEFAZOLIN INJ 1 GM VIAL ONE (12:32)
[2018-09-16] MEDS ORDERED: METRONIDAZOLE 500 MG/NS RTU 500 MG/100 ML RTUPB IV ONE (12:34)
[2018-09-16] MEDS ORDERED: PROMETHAZINE HCL INJ 25 MG/1 ML VIAL IV PRN ×2 (12:58)
[2018-09-16] MEDS ORDERED: DIPHENHYDRAMINE HCL 50 MG/ML VIAL IV PRN (12:58)
[2018-09-16] MEDS ORDERED: FENTANYL CITRATE INJ/PF 100 MCG/2 ML AMPUL IV PRN ×3 (12:58)
[2018-09-16] MEDS ORDERED: MEPERIDINE HCL/PF INJ 25 MG/1 ML DISP.SYRIN IV PRN (12:58)
[2018-09-16] MEDS: METOPROLOL TARTRATE 25 MG TABLET NG SCH ×2 (15:01→21:45)
[2018-09-16] MEDS: MAGNESIUM OXIDE 400 MG TABLET NG SCH ×2 (15:01→17:28)
[2018-09-16] MEDS: POTASSIUM CHLORIDE 20 MEQ PACKET NG SCH (15:01)
[2018-09-16] MEDS: LOSARTAN POTASSIUM 25 MG TABLET NG SCH (15:01)
[2018-09-16] MEDS: DIGOXIN INJ 0.5 MG/2 ML AMPULE IV SCH (15:09)
[2018-09-16] MEDS ORDERED: MORPHINE SULFATE 10 MG/ML INJ IV PRN (21:43)
[2018-09-16] MEDS: ATORVASTATIN CALCIUM 80 MG TABLET PO SCH (21:45)
[2018-09-16] MEDS: VANCOMYCIN HCL 750 MG in DEXTROSE 5%-WATER 250 ML IV SCH (21:50)
[2018-09-17] MEDS: INSULIN LISPRO 100 UNIT/ML 3 ML VIAL SUBCUT SCH ×4 (00:34→17:53)
[2018-09-17] MEDS: NORMAL SALINE 1000 ML 1,000 ML IV PRN (01:20)
[2018-09-17] MEDS: PANTOPRAZOLE SODIUM 40 MG PACKET.DR NG SCH (05:29)
--- NOTE | 2018-09-17 11:02 | PDOC PROGRESS REPORT ---
Subjective Progress Note for:: 09/17/18 Subjective:: 09/16/2018 patient is seen today for status post stroke. Patient appears to be medically stable. Patient is scheduled for PEG tube placement today by general surgery. Patient failed modified barium swallow will need PEG tube for placement status 09/17/2018 patient had PEG tube placement yesterday by general surgery. No complications. 24 hours as needed for stabilization of PEG tube for feedings can be resumed. This should occur sometime this afternoon. Her graph patient remains afebrile vital signs are stable chest x-ray yesterday showed no active infiltrates nursing will talk to surgery and get orders to resume feedings this afternoon. Will probably need to increase caloric intake for weight gain. Reason For Visit: ACUTE HEMORRHAGIC STROKE Physical Exam Vital Signs: Temp Pulse Resp BP Pulse Ox 97.9 F 75 16 154/68 H 99 09/17/18 08:04 09/17/18 08:04 09/17/18 08:04 09/17/18 08:04 09/17/18 09:07 Pulse Oximeter Continuous Start: 09/07/18 19:30 Freq: RTQ4 Status: Complete Protocol: Document 09/13/18 18:32 HCR (Rec: 09/13/18 18:32 HCR [email or web address]) Pulse Oximetry Assessment Equipment Usage Equipment Discontinued Continuous SpO2 Machine # 1 Intake & Output 09/16/18 09/17/18 09/18/18 06:59 06:59 06:59 Intake Total 1994 1425 Output Total 1925 1200 Balance 70 225 Weight 44 kg 53.1 kg General appearance: PRESENT: no acute distress, well-developed, well-nourished Head exam: PRESENT: atraumatic, normocephalic Respiratory exam: PRESENT: clear to auscultation kaz, other - Thick coarse rhonchi heard which is normal for this patient. ABSENT: rales, rhonchi, wheezes Cardiovascular exam: PRESENT: RRR. ABSENT: diastolic murmur, rubs, systolic murmur GI/Abdominal exam: PRESENT: normal bowel sounds, soft, other - PEG tube is in place no sign of bleeding. ABSENT: distended, guarding, mass, organolmegaly, rebound, tenderness Neurological exam: PRESENT: alert, awake, oriented to person, oriented to place, oriented to time, oriented to situation, CN II-XII grossly intact, other - Patient answers questions appropriately. ABSENT: motor sensory deficit Psychiatric exam: PRESENT: appropriate affect, normal mood. ABSENT: homicidal ideation, suicidal ideation Results Laboratory Results: 09/16/18 04:14 09/16/18 04:14 Impressions: Head CT 09/08/18 00:00 IMPRESSION: No change from yesterday. EVIDENCE OF ACUTE STROKE: NO. KUB X-Ray 09/08/18 00:00 IMPRESSION: Nasogastric tube tip and side port in the stomach. Grossly nonobstructive bowel gas pattern Modified Barium Swallow 09/14/18 00:00 IMPRESSION: LARYNGEAL PENETRATION AND ASPIRATION DESCRIBED ABOVE. PLEASE SEE SPEECH PATHOLOGIST REPORT FOR OTHER FINDINGS AND RECOMMENDATIONS. Chest X-Ray 09/16/18 08:40 IMPRESSION: STABLE APPEARANCE OF THE CHEST. Assessment and Plan - Diagnosis (1) Acute hemorrhagic infarction of brain Is this a current diagnosis for this admission?: Yes Plan: Continue high intensity statins, optimize BP, continue antiplatelets. Continue ST/PT/OT. Pending placement for rehab. 09/14/2018. Barium swallow. Patient failed swallow eval. Recommendation is a PEG tube placement. Surgery consulted for PEG tube placement. Based on my conversation with the patient patient do understand his underlying medical condition, the necessity for PEG tube placement. Patient has agreed PEG tube placement. Continue medication meds administration through nasogastric tube meanwhile. After PEG tube placement patient will be transitioned to rehab. 09/07/2018. CT head: Subacute infarct left basal ganglia. 09/08/2018. CT head: No changes. 09/16/2018 patient is scheduled for PEG tube placement today. Patient has expressive dysarthria however no receptive abnormalities 09/17/2018. Patient is neurologically stable answers questions appropriately, neurologically ready for placement (2) Aspiration pneumonia Qualifiers: Aspiration pneumonia type: unspecified Laterality: unspecified laterality Is this a current diagnosis for this admission?: Yes Plan: Due to severe dysphasia caused by underlying CVA. Continue vancomycin. Cultures growing normal oral simin. Continue aspiration precaution. Agraffe 09/16/2018 Patient is scheduled for PEG tube placement today by general surgery 09/17/2018 no signs of aspiration pneumonia at this time (3) Atrial fibrillation Qualifiers: Atrial fibrillation type: unspecified Qualified Code(s): I48.91 - Unspecified atrial fibrillation Is this a current diagnosis for this admission?: Yes Plan: Rate controlled. Not a candidate for anticoagulation. Heart rate in the 50s. Continue beta-blockers and digoxin. Digoxin subtherapeutic. Increase to 0.125 daily. Decrease beta-blockers and switch to Toprol-XL. No changes in medication on 09/16/2018 patient stable 09/17/2018 stable from cardiac standpoint (4) Dehydration Is this a current diagnosis for this admission?: Yes Plan: 09/10/2018-we will continue maintenance saline and increased free water through the nasogastric tube. Serum creatinine is normal but the BUN is still slightly elevated. 09/11/2018-we will gradually decrease IV fluid and slowly increase free water through the nasogastric tube until the patient is eating. Continue to monitor labs. 09/12/2018-I am continuing gentle IV fluids and 600 mL of free water through the nasogastric tube. He has had a net positive fluid balance and so I decreased the IV saline to 50 mL an hour. 09/16/2018 patient is n.p.o. pending PEG tube placement by general surgery today. Patient's weight is stable at 44 kg 09/17/2018 electrolytes appear stable. feedings to resume this afternoon through the new PEG site (5) Dysphagia Qualifiers: Dysphagia type: unspecified Qualified Code(s): R13.10 - Dysphagia, unspecified Is this a current diagnosis for this admission?: Yes Plan: 09/10/2018-patient has nasogastric tube at this time. Speech therapy has been consulted. He was too compromised to see initially but now he is much more awake and will be evaluated. 09/11/2018-the patient is now awake and alert enough to be assessed by speech therapy. Nursing will perform their usual bedside swallow eval. I can make some changes based on that evaluation but I still would like speech therapy to see the patient. 09/12/2018-the patient still is extremely high risk for aspiration. Await a more comprehensive evaluation by speech therapy other than the bedside swallow eval. 09/17/2018 patient still at risk for aspiration, although appears to be improving slowly - Time Time Spent with patient: 15-24 minutes
[2018-09-17] MEDS: METOPROLOL TARTRATE 25 MG TABLET NG SCH ×2 (14:15→23:19)
[2018-09-17] MEDS: MAGNESIUM OXIDE 400 MG TABLET NG SCH ×2 (14:16→17:53)
[2018-09-17] MEDS: POTASSIUM CHLORIDE 20 MEQ PACKET NG SCH (14:16)
[2018-09-17] MEDS: LOSARTAN POTASSIUM 25 MG TABLET NG SCH (14:16)
[2018-09-17] MEDS: DIGOXIN INJ 0.5 MG/2 ML AMPULE IV SCH (14:17)
--- NOTE | 2018-09-17 15:33 | PDOC PROGRESS REPORT ---
Subjective Progress Note for:: 09/17/18 Subjective:: This is a 78-year-old male status post hemorrhagic stroke. Patient has dysphasia, and is unable to eat. He is s/p gastrostomy. The patient is resting comfortably, but awakens easily to voice. He reports mild abdominal pain. He denies melena, hematochezia, hematemesis, chest pain, shortness of breath, dizziness, headache. He does feel weak and fatigued. Reason For Visit: ACUTE HEMORRHAGIC STROKE Physical Exam Vital Signs: Temp Pulse Resp BP Pulse Ox 98.1 F 59 L 13 121/73 100 09/17/18 11:55 09/17/18 11:55 09/17/18 11:55 09/17/18 11:55 09/17/18 11:55 Pulse Oximeter Continuous Start: 09/07/18 19:30 Freq: RTQ4 Status: Complete Protocol: Document 09/13/18 18:32 HCR (Rec: 09/13/18 18:32 HCR [email or web address]) Pulse Oximetry Assessment Equipment Usage Equipment Discontinued Continuous SpO2 Machine # 1 Intake & Output 09/16/18 09/17/18 09/18/18 06:59 06:59 06:59 Intake Total 1994 1425 0 Output Total 1925 1200 400 Balance 70 225 -400 Weight 44 kg 53.1 kg General appearance: PRESENT: thin Head exam: PRESENT: atraumatic, normocephalic Eye exam: PRESENT: EOMI, PERRLA. ABSENT: scleral icterus Mouth exam: PRESENT: moist, neck supple Neck exam: ABSENT: meningismus, tenderness, thyromegaly, tracheal deviation Respiratory exam: PRESENT: unlabored. ABSENT: chest wall tenderness, tachypnea, wheezes GI/Abdominal exam: PRESENT: soft, other - Gastrostomy in place. No bleeding at the site.. ABSENT: distended, firm, guarding Rectal exam: PRESENT: deferred Neurological exam: PRESENT: alert, awake Psychiatric exam: ABSENT: anxious Skin exam: ABSENT: erythema, jaundice Results Laboratory Results: 09/16/18 04:14 09/16/18 04:14 Impressions: Head CT 09/08/18 00:00 IMPRESSION: No change from yesterday. EVIDENCE OF ACUTE STROKE: NO. KUB X-Ray 09/08/18 00:00 IMPRESSION: Nasogastric tube tip and side port in the stomach. Grossly nonobstructive bowel gas pattern Modified Barium Swallow 09/14/18 00:00 IMPRESSION: LARYNGEAL PENETRATION AND ASPIRATION DESCRIBED ABOVE. PLEASE SEE SPEECH PATHOLOGIST REPORT FOR OTHER FINDINGS AND RECOMMENDATIONS. Chest X-Ray 09/16/18 08:40 IMPRESSION: STABLE APPEARANCE OF THE CHEST. Assessment & Plan - Diagnosis (1) Dysphagia Qualifiers: Dysphagia type: unspecified Qualified Code(s): R13.10 - Dysphagia, unspecified Is this a current diagnosis for this admission?: Yes (2) Hemorrhagic stroke Is this a current diagnosis for this admission?: Yes - Plan Summary Plan Summary: This is a 78-year-old male status post percutaneous endoscopic gastrostomy. The patient is doing well. The patient may resume his tube feedings. Surgery will sign off at this time. The patient should leave the gastrostomy in place for at least 4 weeks. If it becomes dislodged before 4 weeks, he should contact me immediately. Please renotify with any questions or concerns.
[2018-09-17] MEDS: ATORVASTATIN CALCIUM 80 MG TABLET PO SCH (23:19)
[2018-09-17] MEDS: VANCOMYCIN HCL 750 MG in DEXTROSE 5%-WATER 250 ML IV SCH (23:20)
[2018-09-18] MEDS ORDERED: PANTOPRAZOLE SODIUM 40 MG PACKET.DR ONE (06:42)
[2018-09-18] MEDS: PANTOPRAZOLE SODIUM 40 MG PACKET.DR NG SCH (06:50)
--- NOTE | 2018-09-18 10:05 | PDOC PROGRESS REPORT ---
Subjective Progress Note for:: 09/18/18 Subjective:: 09/16/2018 patient is seen today for status post stroke. Patient appears to be medically stable. Patient is scheduled for PEG tube placement today by general surgery. Patient failed modified barium swallow will need PEG tube for placement status 09/17/2018 patient had PEG tube placement yesterday by general surgery. No complications. 24 hours as needed for stabilization of PEG tube for feedings can be resumed. This should occur sometime this afternoon. Her graph patient remains afebrile vital signs are stable chest x-ray yesterday showed no active infiltrates nursing will talk to surgery and get orders to resume feedings this afternoon. Will probably need to increase caloric intake for weight gain. 09/18/2018 patient is doing quite well vital signs are stable blood pressure 142/59, temperature 97.8, pulse 56, glucose 136. Patient is tolerating his feedings through his PEG tube, anticipate discharge in the next several days. Patient appears more awake and alert today, patient responds to questions appropriately. Will recheck labs today. Reason For Visit: ACUTE HEMORRHAGIC STROKE Physical Exam Vital Signs: Temp Pulse Resp BP Pulse Ox 97.8 F 56 L 14 142/59 H 99 09/18/18 07:54 09/18/18 07:54 09/18/18 07:54 09/18/18 07:54 09/18/18 07:54 Pulse Oximeter Continuous Start: 09/07/18 19:30 Freq: RTQ4 Status: Complete Protocol: Document 09/13/18 18:32 HCR (Rec: 09/13/18 18:32 HCR [email or web address]) Pulse Oximetry Assessment Equipment Usage Equipment Discontinued Continuous SpO2 Machine # 1 Intake & Output 09/17/18 09/18/18 09/19/18 06:59 06:59 06:59 Intake Total 1425 290 Output Total 1200 1200 Balance 225 -910 Weight 53.1 kg 44.2 kg Results Laboratory Results: 09/16/18 04:14 09/16/18 04:14 Impressions: Head CT 09/08/18 00:00 IMPRESSION: No change from yesterday. EVIDENCE OF ACUTE STROKE: NO. KUB X-Ray 09/08/18 00:00 IMPRESSION: Nasogastric tube tip and side port in the stomach. Grossly nonobstructive bowel gas pattern Modified Barium Swallow 09/14/18 00:00 IMPRESSION: LARYNGEAL PENETRATION AND ASPIRATION DESCRIBED ABOVE. PLEASE S SPEECH PATHOLOGIST REPORT FOR OTHER FINDINGS AND RECOMMENDATIONS. Chest X-Ray 09/16/18 08:40 IMPRESSION: STABLE APPEARANCE OF THE CHEST. Assessment and Plan - Diagnosis (1) Acute hemorrhagic infarction of brain Is this a current diagnosis for this admission?: Yes Plan: Continue high intensity statins, optimize BP, continue antiplatelets. Continue ST/PT/OT. Pending placement for rehab. 09/14/2018. Barium swallow. Patient failed swallow eval. Recommendation is a PEG tube placement. Surgery consulted for PEG tube placement. Based on my conversation with the patient patient do understand his underlying medical condition, the necessity for PEG tube placement. Patient has agreed PEG tube placement. Continue medication meds administration through nasogastric tube meanwhile. After PEG tube placement patient will be transitioned to rehab. 09/07/2018. CT head: Subacute infarct left basal ganglia. 09/08/2018. CT head: No changes. 09/16/2018 patient is scheduled for PEG tube placement today. Patient has expressive dysarthria however no receptive abnormalities 09/17/2018. Patient is neurologically stable answers questions appropriately, neurologically ready for placement 09/18/2018 patient more awake and alert today, patient medically stable from his brain event (2) Aspiration pneumonia Qualifiers: Aspiration pneumonia type: unspecified Laterality: unspecified laterality Is this a current diagnosis for this admission?: Yes Plan: Due to severe dysphasia caused by underlying CVA. Continue vancomycin. Cultures growing normal oral simin. Continue aspiration precaution. Agraffe 09/16/2018 Patient is scheduled for PEG tube placement today by general surgery 09/17/2018 no signs of aspiration pneumonia at this time 09/18/2018 patient does not appear to have any signs of aspiration at this time per speech therapy patient should be able to tolerate honey thickened or pure (3) Atrial fibrillation Qualifiers: Atrial fibrillation type: unspecified Qualified Code(s): I48.91 - Unspecified atrial fibrillation Is this a current diagnosis for this admission?: No (4) Dehydration Is this a current diagnosis for this admission?: Yes Plan: 09/10/2018-we will continue maintenance saline and increased free water through the nasogastric tube. Serum creatinine is normal but the BUN is still slightly elevated. 09/11/2018-we will gradually decrease IV fluid and slowly increase free water through the nasogastric tube until the patient is eating. Continue to monitor labs. 09/12/2018-I am continuing gentle IV fluids and 600 mL of free water through the nasogastric tube. He has had a net positive fluid balance and so I decreased t he IV saline to 50 mL an hour. 09/16/2018 patient is n.p.o. pending PEG tube placement by general surgery today. Patient's weight is stable at 44 kg 09/17/2018 electrolytes appear stable. feedings to resume this afternoon through the new PEG site 09/18/2018 labs will be rechecked today, but patient's vital signs are stable. (5) Dysphagia Qualifiers: Dysphagia type: unspecified Qualified Code(s): R13.10 - Dysphagia, unspeci fied Is this a current diagnosis for this admission?: Yes Plan: 09/10/2018-patient has nasogastric tube at this time. Speech therapy has been c onsulted. He was too compromised to see initially but now he is much more awake and will be evaluated. 09/11/2018-the patient is now awake and alert enough to be assessed by speech therapy. Nursing will perform their usual bedside swallow eval. I can make some changes based on that evaluation but I still would like speech therapy to see the patient. 09/12/2018-the patient still is extremely high risk for aspiration. Await a more comprehensive evaluation by speech therapy other than the bedside swallow eval. 09/17/2018 patient still at risk for aspiration, although appears to be improving slowly 09/18/2018 patient speaking well though slow. Patient appears to be swallowing better with passage of time. PEG tube is been inserted for feedings - Time Time Spent with patient: 15-24 minutes
[2018-09-18] MEDS: INSULIN LISPRO 100 UNIT/ML 3 ML VIAL SUBCUT SCH ×4 (10:23→23:09)
[2018-09-18] MEDS: DIGOXIN INJ 0.5 MG/2 ML AMPULE IV SCH (10:34)
[2018-09-18] MEDS: METOPROLOL TARTRATE 25 MG TABLET NG SCH ×2 (10:37→22:54)
[2018-09-18] MEDS: MAGNESIUM OXIDE 400 MG TABLET NG SCH ×2 (10:37→18:17)
[2018-09-18] MEDS: LOSARTAN POTASSIUM 25 MG TABLET NG SCH (10:37)
[2018-09-18] MEDS: POTASSIUM CHLORIDE 20 MEQ PACKET NG SCH (10:38)
[2018-09-18 11:09] LABS: ABSOLUTE BASOPHILS # (AUTO) 0.1 10^3/uL (0.0-0.2); ABSOLUTE EOSINOPHILS # (AUTO) 0.6 10^3/uL (0.0-0.6); ABSOLUTE MONOCYTES (AUTO) 0.8 10^3/uL (0.1-1.4); ABSOLUTE NEUT (AUTO) 6.2 10^3/uL (1.7-8.2); BASOPHILS % (AUTO) 0.9 % (0-2); EOSINOPHILS % (AUTO) 6.8 % (0-6); HEMATOCRIT 30.4 % (37.9-51.0); HEMOGLOBIN 10.4 g/dL (13.5-17.0); LYMPHOCYTES % (AUTO) 11.7 % (13-45); MEAN CORPUSCULAR HGB CONC 34.2 g/dL (32.0-36.0); MEAN CORPUSCULAR VOLUME 88 fl (80-97); PLATELET COUNT 214 10^3/uL (150-450); RED BLOOD COUNT 3.46 10^6/uL (4.35-5.55); RED CELL DISTRIBUTION WIDTH 15.3 % (11.5-14.0); SEGMENTED NEUTROPHILS % (AUTO) 71.6 % (42-78); TOTAL CELLS COUNTED % (AUTO) 100 %; WHITE BLOOD COUNT 8.6 10^3/uL (4.0-10.5)
[2018-09-18 11:23] LABS: ANION GAP 9 (5-19); BLOOD UREA NITROGEN 18 mg/dL (7-20); CALCIUM 8.8 mg/dL (8.4-10.2); CARBON DIOXIDE 22 mmol/L (22-30); CHLORIDE 104 mmol/L (98-107); GLUCOSE 143 mg/dL (75-110); POTASSIUM 4.2 mmol/L (3.6-5.0)
[2018-09-18] MEDS: ATORVASTATIN CALCIUM 80 MG TABLET PO SCH (22:54)
[2018-09-18] MEDS: VANCOMYCIN HCL 750 MG in DEXTROSE 5%-WATER 250 ML IV SCH (22:54)
[2018-09-19] MEDS: PANTOPRAZOLE SODIUM 40 MG PACKET.DR NG SCH (06:10)
[2018-09-19] MEDS: INSULIN LISPRO 100 UNIT/ML 3 ML VIAL SUBCUT SCH ×4 (09:40→23:57)
--- NOTE | 2018-09-19 10:04 | RADIOLOGY REPORT (SQ) ---
EXAM DESCRIPTION: CT HEAD WITHOUT COMPLETED DATE/TIME: 09/19/2018 9:18 am REASON FOR STUDY: syncope COMPARISON: 09/08/2018 TECHNIQUE: Axial images acquired through the brain without intravenous contrast. Images reviewed wi th bone, brain and subdural windows. Additional sagittal and coronal reconstructions were generated. Images stored on PACS. All CT scanners at this facility use dose modulation, iterative reconstruction, and/or weight based d osing when appropriate to reduce radiation dose to as low as reasonably achievable (ALARA). [facility]: Dose Right [facility]: CareDose [facility]: Dose Right [facility]: Teradose 4D [facility]: [employer] RADIATION DOSE: CT Rad equipment meets quality standard of care and radiation dose reduction techniq ues were employed. CTDIvol: 48.6 mGy. DLP: 929 mGy-cm.mGy. LIMITATIONS: Images degraded by patient motion. FINDINGS: VENTRICLES: Prominent. CEREBRUM: There is continued evolution of the area of infarct within the left basal ganglia. Unchang ed 7 mm hyperdense lesion within the left insula. Stable prior left frontal lobe infarct and encepha lomalacia. No evidence of new large vascular territory infarct. There are extensive periventricular and subcortical areas of hypoattenuation, likely sequelae of microangiopathic disease. CEREBELLUM: No masses. No hemorrhage. No alteration of density. No evidence for acute infarction. EXTRAAXIAL SPACES: Age-related involutional change. No fluid collections. No masses. ORBITS AND GLOBE: No intra- or extraconal masses. Normal contour of globe without masses. Bilateral cataract surgery. CALVARIUM: No fracture. PARANASAL SINUSES: No fluid or mucosal thickening. SOFT TISSUES: No mass or hematoma. OTHER: No other significant finding. IMPRESSION: 1. Continued evolution of the left-sided basal ganglia infarct with unchanged 7 mm pare nchymal hemorrhage within the inferior left basal ganglia. 2. 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 EVIDENCE OF ACUTE STROKE: NO. TECHNICAL DOCUMENTATION: JOB ID: [id number] Quality ID # [id number]: Final reports with documentation of one or more dose reduction techniques (e.g., Au tomated exposure control, adjustment of the mA and/or kV according to patient size, use of iterative reconstruction technique) 2010 [employer]- All Rights Reserved Reading location - IP/workstation name: [email or web address]
[2018-09-19] MEDS: MAGNESIUM OXIDE 400 MG TABLET NG SCH ×2 (11:07→18:26)
[2018-09-19] MEDS: DIGOXIN INJ 0.5 MG/2 ML AMPULE IV SCH (11:07)
[2018-09-19] MEDS: POTASSIUM CHLORIDE 20 MEQ PACKET NG SCH (11:07)
[2018-09-19] MEDS: LOSARTAN POTASSIUM 25 MG TABLET NG SCH (11:07)
[2018-09-19] MEDS: METOPROLOL TARTRATE 25 MG TABLET NG SCH ×2 (11:07→22:40)
[2018-09-19] MEDS: ATORVASTATIN CALCIUM 80 MG TABLET PO SCH (22:40)
--- NOTE | 2018-09-20 00:18 | Operative Report ---
Nonrecallable Operative Report DATE OF SURGERY: 09/16/18 PREOPERATIVE DIAGNOSIS: 1. Dysphasia. 2. Inanition. 3. History of stroke POSTOPERATIVE DIAGNOSIS: Same as above OPERATION: Percutaneous endoscopic gastrostomy SURGEON: FAYE FREDERICK 1ST FENCE REPAIRMAN: YOCASTA SAVAGE ANESTHESIA: LMAC TISSUE REMOVED OR ALTERED: None COMPLICATIONS: None apparent ESTIMATED BLOOD LOSS: Minimal PROCEDURE: Drains/implants: 20 Pashto percutaneous endoscopic gastrostomy. Procedure in detail: After informed consent was obtained, the patient was brought to the operating room and laid in the supine position. The endoscope was passed down the oropharynx, down the esophagus, and into the stomach. The stomach was insufflated with air. An appropriate place for insertion of the gastrostomy was chosen using one-to-one ballottement and transillumination. After this was chosen, the abdomen was prepped and draped in a normal sterile fashion. 1% lidocaine was used to anesthetize the skin of the abdominal wall. Under direct endoscopic guidance, a needle was inserted percutaneously through the skin, and into the lumen of the stomach. A wire was then fed through the needle. The wire was grasped with a snare and pulled out to the oropharynx. The PEG tube was attached to the wire. The PEG tube was then pulled down the esophagus, through the anterior abdominal wall, and was left in place with the inner bumper seated against the mucosa of the wall of the stomach. There was no active bleeding. There is no hematoma. The external bumper was then secured to the tube. It was placed at 3 cm at the skin. A dressing was then placed, and the procedure was concluded. All sponge, instrument, and needle counts were correct x2. Condition: Fair. Yocasta Savage PA-C was scrubbed and present the entirety the procedure. She assisted with all portions of the procedure including placement of the needle, insertion of the wire, pulling of the PEG tube, securing the external bumper.
--- NOTE | 2018-09-20 06:37 | PDOC PROGRESS REPORT ---
Subjective Progress Note for:: 09/19/18 Subjective:: 09/16/2018 patient is seen today for status post stroke. Patient appears to be medically stable. Patient is scheduled for PEG tube placement today by general surgery. Patient failed modified barium swallow will need PEG tube for placement status 09/17/2018 patient had PEG tube placement yesterday by general surgery. No complications. 24 hours as needed for stabilization of PEG tube for feedings can be resumed. This should occur sometime this afternoon. Her graph patient remains afebrile vital signs are stable chest x-ray yesterday showed no active infiltrates nursing will talk to surgery and get orders to resume feedings this afternoon. Will probably need to increase caloric intake for weight gain. 09/18/2018 patient is doing quite well vital signs are stable blood pressure 142/59, temperature 97.8, pulse 56, glucose 136. Patient is tolerating his feedings through his PEG tube, anticipate discharge in the next several days. Patient appears more awake and alert today, patient responds to questions appropriately. Will recheck labs today. 09/19/2018 patient remains medically stable with vital signs afebrile. White counts normal electrolytes are normal. Patient is tolerating PEG feedings well, increasing feedings per dietary recommendations. Check with discharge planning today about placement. Patient is medically stable for placement that is secure will be able to DC in a biotics at time of discharge. Reason For Visit: ACUTE HEMORRHAGIC STROKE Physical Exam Vital Signs: Temp Pulse Resp BP Pulse Ox 97.9 F 62 20 120/57 L 100 09/19/18 04:10 09/19/18 07:00 09/19/18 04:10 09/19/18 04:10 09/19/18 04:22 Pulse Oximeter Continuous Start: 09/07/18 19:30 Freq: RTQ4 Status: Complete Protocol: Document 09/13/18 18:32 HCR (Rec: 09/13/18 18:32 HCR [id number]) Pulse Oximetry Assessment Equipment Usage Equipment Discontinued Continuous SpO2 Machine # 1 Intake & Output 09/18/18 09/19/18 09/20/18 06:59 06:59 06:59 Intake Total 290 550 Output Total 1200 1025 Balance -910 -475 Weight 44.2 kg 52.4 kg General appearance: PRESENT: no acute distress, well-developed, well-nourished, other - Sleeping but arouses easily Respiratory exam: PRESENT: clear to auscultation kaz. ABSENT: rales, rhonchi, wheezes Cardiovascular exam: PRESENT: RRR. ABSENT: diastolic murmur, rubs, systolic murmur Neurological exam: PRESENT: alert, awake, oriented to person, oriented to place, oriented to time, oriented to situation, CN II-XII grossly intact, other - Answers questions appropriately although slow to respond. This is his baseline however. ABSENT: motor sensory deficit Psychiatric exam: PRESENT: appropriate affect, normal mood. ABSENT: homicidal ideation, suicidal ideation Results Laboratory Results: 09/18/18 10:34 09/18/18 10:34 09/18/18 09/18/18 10:34 10:34 WBC 8.6 RBC 3.46 L Hgb 10.4 L Hct 30.4 L MCV 88 MCH 30.0 MCHC 34.2 RDW 15.3 H Plt Count 214 Seg Neutrophils % 71.6 Lymphocytes % 11.7 L Monocytes % 9.0 Eosinophils % 6.8 H Basophils % 0.9 Absolute Neutrophils 6.2 Absolute Lymphocytes 1.0 Absolute Monocytes 0.8 Absolute Eosinophils 0.6 Absolute Basophils 0.1 Sodium 135.4 L Potassium 4.2 Chloride 104 Carbon Dioxide 22 Anion Gap 9 BUN 18 Creatinine 1.01 Est GFR ( Amer) > 60 Est GFR (Non-Af Amer) > 60 Glucose 143 H Calcium 8.8 Impressions: Head CT 09/08/18 00:00 IMPRESSION: No change from yesterday. EVIDENCE OF ACUTE STROKE: NO. KUB X-Ray 09/08/18 00:00 IMPRESSION: Nasogastric tube tip and side port in the stomach. Grossly nonobstructive bowel gas pattern Modified Barium Swallow 09/14/18 00:00 IMPRESSION: LARYNGEAL PENETRATION AND ASPIRATION DESCRIBED ABOVE. PLEASE SEE SPEECH PATHOLOGIST REPORT FOR OTHER FINDINGS AND RECOMMENDATIONS. Chest X-Ray 09/16/18 08:40 IMPRESSION: STABLE APPEARANCE OF THE CHEST. Assessment and Plan - Diagnosis (1) Acute hemorrhagic infarction of brain Is this a current diagnosis for this admission?: Yes Plan: Continue high intensity statins, optimize BP, continue antiplatelets. Continue ST/PT/OT. Pending placement for rehab. 09/14/2018. Barium swallow. Patient failed swallow eval. Recommendation is a PEG tube placement. Surgery consulted for PEG tube placement. Based on my conversation with the patient patient do understand his underlying medical condition, the necessity for PEG tube placement. Patient has agreed PEG tube placement. Continue medication meds administration through nasogastric tube meanwhile. After PEG tube placement patient will be transitioned to rehab. 09/07/2018. CT head: Subacute infarct left basal ganglia. 09/08/2018. CT head: No changes. 09/16/2018 patient is scheduled for PEG tube placement today. Patient has expressive dysarthria however no receptive abnormalities 09/17/2018. Patient is neurologically stable answers questions appropriately, neurologically ready for placement 09/18/2018 patient more awake and alert today, patient medically stable from his brain event 09/19/2017. Patient remains stable. No new neurologic findings. Will repeat CT brain scan without contrast today anticipation of discharge (2) Aspiration pneumonia Qualifiers: Aspiration pneumonia type: unspecified Laterality: unspecified laterality Is this a current diagnosis for this admission?: Yes Plan: Due to severe dysphasia caused by underlying CVA. Continue vancomycin. Cultures growing normal oral simin. Continue aspiration precaution.. 09/16/2018 Patient is scheduled for PEG tube placement today by general surgery 09/17/2018 no signs of aspiration pneumonia at this time 09/18/2018 patient does not appear to have any signs of aspiration at this time per speech therapy patient should be able to tolerate honey thickened or pure 09/19/2018 patient is increasing tube feedings no new signs of aspiration pneumonia. Patient currently on antibiotics for this (3) Atrial fibrillation Qualifiers: Atrial fibrillation type: unspecified Qualified Code(s): I48.91 - Unspecified atrial fibrillation Is this a current diagnosis for this admission?: No Plan: Rate controlled. Not a candidate for anticoagulation. Heart rate in the 50s. Continue beta-blockers and digoxin. Digoxin subtherapeutic. Increase to 0.125 daily. Decrease beta-blockers and switch to Toprol-XL. No changes in medication on 09/16/2018 patient stable 09/17/2018 stable from cardiac standpoint 09/19/2018. We will recheck dig level today. Patient has chronic atrial fib (4) Dehydration Is this a current diagnosis for this admission?: Yes Plan: 09/10/2018-we will continue maintenance saline and increased free water through the nasogastric tube. Serum creatinine is normal but the BUN is still slightly elevated. 09/11/2018-we will gradually decrease IV fluid and slowly increase free water through the nasogastric tube until the patient is eating. Continue to monitor labs. 09/12/2018-I am continuing gentle IV fluids and 600 mL of free water through the nasogastric tube. He has had a net positive fluid balance and so I decreased the IV saline to 50 mL an hour. 09/16/2018 patient is n.p.o. pending PEG tube placement by general surgery today. Patient's weight is stable at 44 kg 09/17/2018 electrolytes appear stable. feedings to resume this afternoon through the new PEG site 09/18/2018 labs will be rechecked today, but patient's vital signs are stable. 09/19/2018. Electrolytes are stable patient tolerating PEG tube feedings (5) Dysphagia Qualifiers: Dysphagia type: unspecified Qualified Code(s): R13.10 - Dysphagia, uns pecified Is this a current diagnosis for this admission?: Yes Plan: 09/10/2018-patient has nasogastric tube at this time. Speech therapy has been consulted. He was too compromised to see initially but now he is much more awake and will be evaluated. 09/11/2018-the patient is now awake and alert enough to be assessed by speech therapy. Nursing will perform their usual bedside swallow eval. I can make some changes based on that evaluation but I still would like speech therapy to see the patient. 09/12/2018-the patient still is extremely high risk for aspiration. Await a more comprehensive evaluation by speech therapy other than the bedside swallow eval. 09/17/2018 patient still at risk for aspiration, although appears to be improving slowly 09/18/2018 patient speaking well though slow. Patient appears to be swallowing better with passage of time. PEG tube is been inserted for feedings 09/19/2018 dysphagia secondary to CVA. Per speech pathology patient is slowly progressing and improving - Time Time Spent with patient: 15-24 minutes
[2018-09-20] MEDS: PANTOPRAZOLE SODIUM 40 MG PACKET.DR NG SCH (06:45)
[2018-09-20] MEDS: INSULIN LISPRO 100 UNIT/ML 3 ML VIAL SUBCUT SCH ×2 (07:05→12:10)
[2018-09-20] MEDS: DIGOXIN INJ 0.5 MG/2 ML AMPULE IV SCH (11:21)
[2018-09-20] MEDS: LOSARTAN POTASSIUM 25 MG TABLET NG SCH (11:22)
[2018-09-20] MEDS: METOPROLOL TARTRATE 25 MG TABLET NG SCH (11:22)
[2018-09-20] MEDS: POTASSIUM CHLORIDE 20 MEQ PACKET NG SCH (11:22)
[2018-09-20] MEDS: MAGNESIUM OXIDE 400 MG TABLET NG SCH (11:22)
--- NOTE | 2018-09-20 12:45 | PDOC TRANSFER SUMMARY ---
General - Admit/Disc Date/PCP Admission Date/Primary Care Provider: 09/07/18 18:22 MARYLIN CALDERA MD Discharge Date: 09/20/18 - Discharge Diagnosis (1) Acute hemorrhagic infarction of brain Is this a current diagnosis for this admission?: Yes (2) Ischemic stroke Is this a current diagnosis for this admission?: Yes (3) Aphasia Is this a current diagnosis for this admission?: Yes - Additional Information Resuscitation Status: Do Not Resuscitate Prescriptions: Atorvastatin Calcium [Lipitor 40 mg Tablet] 40 mg PO QHS #30 tablet Digoxin [Lanoxin 0.125 mg Tablet] 0.125 mg PO DAILY #30 tablet Losartan Potassium [Cozaar 25 mg Tablet] 25 mg PEG DAILY #30 tablet Metoprolol Tartrate [Lopressor 25 mg Tablet] 12.5 mg PEG Q12 #60 tablet Home Medications: Acetaminophen [Tylenol 325 mg Tablet] 650 mg PO Q4HP PRN 09/07/18 Diclofenac Sodium [Voltaren] 2 gm TP TID MDD hands 09/07/18 Diclofenac Sodium [Voltaren] 4 gm TP TID MDD knees 09/07/18 Docusate Sodium [Colace 100 mg Capsule] 100 mg PO DAILY 09/07/18 Folic Acid [Folvite 1 mg Tablet] 1 mg PO DAILY 09/07/18 Losartan Potassium [Cozaar 25 mg Tablet] 12.5 mg PO DAILY 09/07/18 Metformin HCl [Glucophage 500 mg Tablet] 1,000 mg PO BID 09/07/18 Oxycodone HCl [Oxy-Ir 5 mg Tablet] 5 mg PO Q4HP PRN 09/07/18 Atorvastatin Calcium [Lipitor 40 mg Tablet] 40 mg PO QHS #30 tablet 09/20/18 Digoxin [Lanoxin 0.125 mg Tablet] 0.125 mg PO DAILY #30 tablet 09/20/18 Losartan Potassium [Cozaar 25 mg Tablet] 25 mg PEG DAILY #30 tablet 09/20/18 Metoprolol Tartrate [Lopressor 25 mg Tablet] 12.5 mg PEG Q12 #60 tablet 09/20/18 History of Present Illness Admission Date/PCP: 09/07/18 18:22 MARYLIN CALDERA MD History of Present Illness: Admitting hospitalist's H&P: SUREKHA BANG is a 77 year old male who according to the emergency room physician he was interacting with the assisted staff normally the day before. Evidently he had acute onset of weakness and aphasia. When he presented to the facility there was some red liquid around his mouth possibly from attempts at feeding him Jell-O. The patient is unable to provide any history. I obtained most of the history from old [place] records. The patient's BUN and creatinine are elevated. His blood pressure is slightly elevated and he is slightly tachycardic. He may be dehydrated (BUN and creatinine are up) and he was referred to the hospital service for admission. Hospital Course Hospital Course: This is a 78-year-old male with a past medical history paroxysmal A. fib, history of CVA, hypertension and controlled diabetes mellitus who was brought in from assisted due to acute aphasia and acute weakness. CT of the brain showed a subacute nonhemorrhagic infarct in the left basal ganglia/periventricular white matter. This also showed a tiny parenchymal hem orrhage in the left basal ganglia and an old infarct in the mid yuly. Patient also was evaluated by PT and speech therapy. He failed swallow evaluation and underwent an MBS. He eventually required PEG tube placement to which he agreed on pursuing. He is on Jevity 1.5 at 35 cc/hr with 25 cc water flushes. Patient is a DNR/DNI. Patient is also treated for aspiration pneumonia. Blood pressures were also optimized. Heart rate was optimally controlled with metoprolol and PO Lanoxin. He was switched to atorvastatin. He cannot be on antiplatelet due to he had a parenchymal hemorrhage left basal ganglia. Patient did continue to improve. Upon my encounter on day of discharge, he appears comfortable and is conversant. His A1c came back at 5.5. Recommend discontinuing home Lantus at this time. He may continue metformin upon discharge with routine follow-up with PCP about glycemic control to see if he can eventually be taken off metformin too. He is oriented to person and place and tells me he is aware that he had an a stroke. He will be going back to the assisted for continued physical therapy. Physical Exam Vital Signs: Temp Pulse Resp BP Pulse Ox 98.4 F 64 17 131/55 H 100 09/20/18 08:38 09/20/18 08:38 09/20/18 08:38 09/20/18 08:38 09/20/18 08:38 Pulse Oximeter Continuous Start: 09/07/18 19:30 Freq: RTQ4 Status: Complete Protocol: Document 09/13/18 18:32 HCR (Rec: 09/13/18 18:32 HCR [id number]) Pulse Oximetry Assessment Equipment Usage Equipment Discontinued Continuous SpO2 Machine # 1 Intake & Output 09/19/18 09/20/18 09/21/18 06:59 06:59 06:59 Intake Total 550 2956 240 Output Total 1025 1225 Balance -475 1731 240 Weight 115 lb 8.356 oz 115 lb 8.356 oz General appearance: PRESENT: no acute distress, well-developed, well-nourished Head exam: PRESENT: atraumatic, normocephalic Eye exam: PRESENT: conjunctiva pink, EOMI, PERRLA. ABSENT: scleral icterus Ear exam: PRESENT: normal external ear exam Mouth exam: PRESENT: moist, tongue midline Neck exam: ABSENT: carotid bruit, JVD, lymphadenopathy, thyromegaly Respiratory exam: PRESENT: clear to auscultation kaz. ABSENT: rales, rhonchi, wheezes Cardiovascular exam: PRESENT: RRR. ABSENT: diastolic murmur, rubs, systolic murmur Pulses: PRESENT: normal dorsalis pedis pul GI/Abdominal exam: PRESENT: normal bowel sounds, soft. ABSENT: distended, guarding, mass, organolmegaly, rebound, tenderness Rectal exam: PRESENT: deferred Neurological exam: PRESENT: alert, awake, oriented to person, oriented to place Results Laboratory Results: 09/18/18 10:34 09/18/18 10:34 Impressions: KUB X-Ray 09/08/18 00:00 IMPRESSION: Nasogastric tube tip and side port in the stomach. Grossly nonobstructive bowel gas pattern Modified Barium Swallow 09/14/18 00:00 IMPRESSION: LARYNGEAL PENETRATION AND ASPIRATION DESCRIBED ABOVE. PLEASE SEE SPEECH PATHOLOGIST REPORT FOR OTHER FINDINGS AND RECOMMENDATIONS. Chest X-Ray 09/16/18 08:40 IMPRESSION: STABLE APPEARANCE OF THE CHEST. Head CT 09/19/18 08:36 IMPRESSION: 1. Continued evolution of the left-sided basal ganglia infarct with unchanged 7 mm parenchymal hemorrhage within the inferior left basal ganglia. 2. Stable additional chronic left frontal infarct and extensive white matter changes, likely sequelae of microangiopathic disease. EVIDENCE OF ACUTE STROKE: NO. Qualifiers - * PATIENT BEING DISCHARGED WITH ANY OF THE FOLLOWING DIAGNOSIS: No Acute Heart Failure - Is this a Heart Failure Patient?: No LVEF < 40%?: No- if no continue to question #3 3. Anticoagulant therapy for permanect/persistent/paraoxysmal Afib or Aflutter: N/A
[2018-09-20 15:21] VITALS: BP 140/56
== END 2018-09-20 15:44 | DRG 64 ==
LOC: ER 13:00 → EH 18:22 → 3W 09-08 17:17
PROVIDERS: ADMIT Hospitalist; ATTEND Hospitalist
PROC: 0DH67UZ Insertion of Feeding Device into Stomach, Via Natural or Artificial Opening (ICD-10-PCS; 2018-09-08)
PROC: 0DH63UZ Insertion of Feeding Device into Stomach, Percutaneous Approach (ICD-10-PCS; principal; 2018-09-16 12:15)
DX: I61.8 Other nontraumatic intracerebral hemorrhage (principal); I63.89 Other cerebral infarction; J69.0 Pneumonitis due to inhalation of food and vomit; N17.9 Acute kidney failure, unspecified; R47.01 Aphasia; R13.12 Dysphagia, oropharyngeal phase; E86.0 Dehydration; E87.5 Hyperkalemia; Z88.2 Allergy status to sulfonamides; F03.90 Unspecified dementia, unspecified severity, without behavioral disturbance, psychotic disturbance, mood disturbance, and anxiety; J44.9 Chronic obstructive pulmonary disease, unspecified; I10 Essential (primary) hypertension; I48.91 Unspecified atrial fibrillation; K21.9 Gastro-esophageal reflux disease without esophagitis; M06.9 Rheumatoid arthritis, unspecified; E11.9 Type 2 diabetes mellitus without complications; F32.9 Major depressive disorder, single episode, unspecified; F90.9 Attention-deficit hyperactivity disorder, unspecified type; D64.9 Anemia, unspecified; Z66 Do not resuscitate; Z79.899 Other long term (current) drug therapy; Z79.84 Long term (current) use of oral hypoglycemic drugs
CPT/HCPCS: 00731; 36415; 43246; 70450; 71045; 74018; 74230; 80048; 80053; 80061; 80162; 80202; 81001; 82565; 82803; 82962; 83036; 83605; 83735; 84100; 84443; 85025; 85027; 85610; 86850; 86900; 86901; 87040; 87086; 93005; 93010; 94640; 94762; 96360; 99291; C1758; J0690; J1160; J1815; J1940; J2543; J2704; J3370; J3475; J3490; J7030; J7050; J7060; J7620; S0164